=== PATIENT | female | born 2000 | race Caucasian/White ===

== ENCOUNTER 2020-01-14 07:26 | Day surgery (SDC) | payer BC ==
--- NOTE | 2020-01-08 15:43 | HP ---
AMENDED REPORT: DATE OF SURGERY: 01/14/2020 HISTORY OF PRESENT ILLNESS: The patient is a 19 year-old female who presented to the office with right upper quadrant pain. She states this pain is aggravated by eating greasy food. There is some nausea in the a.m. The pain is mostly postprandial. The pain does radiate to the back. The patient had abdominal ultrasound with impression showing cholelithiasis without acute cholecystitis. PAST MEDICAL HISTORY: Hypertension. Reflux. MEDICATIONS: Hydrochlorothiazide. Ambien. Omeprazole. Zofran. Oral control. ALLERGIES: DAYPRO. FAMILY HISTORY: Hypertension. SOCIAL HISTORY: Negative. REVIEW OF SYSTEMS: CONSTITUTIONAL: Denies fever or chills. CHEST: Denies shortness of breath or cough. CVS: Denies chest pain. ABDOMEN: Reports right upper quadrant pain radiating to the back. Positive nausea and diarrhea. Denies rectal bleeding. : Denies dysuria, hematuria. EXTREMITIES: Denies swelling. PHYSICAL EXAMINATION: GENERAL: No acute distress. HEENT: No jaundice. Oral mucosa moist. NECK: No JVD. CHEST: Nonlabored. No shortness of breath. ABDOMEN: Soft, nondistended, tender in the right upper quadrant to palpation. EXTREMITIES: No edema. INTEGUMENTARY: Warm, pink. No rash. NEUROLOGIC: Awake, alert, oriented. PSYCHIATRIC: Appropriate mood and affect. ASSESSMENT: Symptomatic cholelithiasis. PLAN: Laparoscopic cholecystectomy possible open with Dr. Scooby Mendoza. As dictated by Latisha Martinez NP. ADDENDUM 01/14/[address] Scooby Mendoza: C-scope before laparoscopic cholecystectomy for rectal bleeding.
[2020-01-14] MEDS ORDERED: Lactated Ringers 1,000 ML IV SCH (08:00)
[2020-01-14] MEDS ORDERED: Versed 2 MG/2 ML Injection ONE (08:24)
[2020-01-14] MEDS ORDERED: Versed 2 MG/2 ML Injection IV ONE (08:26)
[2020-01-14] MEDS ORDERED: DIPRIVAN 200 MG/20 ML IV ONE ×2 (09:18→09:25)
[2020-01-14] MEDS ORDERED: Ketamine HCl 50 MG/ML ONE (09:20)
[2020-01-14 10:40] VITALS: O2SAT 84
[2020-01-14 10:42] VITALS: BP 135/89; PULSE 66
--- NOTE | 2020-01-14 11:45 | OP ---
SURGERY DATE/TIME: 01/14/2020 0923 PREOPERATIVE DIAGNOSIS: Blood per rectum. POSTOPERATIVE DIAGNOSIS: Normal colonoscopy to cecum. PREP SCORE: Excellent. ANTICIPATED FOLLOW UP: Ten years. FINDINGS: Normal. PROCEDURE: Colonoscopy complete to cecum. SURGEON: Scooby Mendoza M.D. ANESTHESIA: MAC. COMPLICATIONS: None. CONDITION: Stable. INDICATION: The patient has had some rectal bleeding. She also has some gallbladder symptoms. We are considering doing a cholecystectomy. Her rectal bleeding is being evaluated today. DESCRIPTION OF PROCEDURE: She is taken to endoscopy. MAC sedation provided. Anal digital examination satisfactory. Scope introduced. There were no fissures and no major hemorrhoids today. The scope was advanced up to the cecum. Base of the cecum, ileocecal valve and appendiceal orifice normal. Ascending, hepatic, transverse, splenic, descending, sigmoid, rectum, anus was normal. Normal examination today. PLAN: Follow up in ten years.
== END 2020-01-14 10:30 | disposition home or self-care (01) ==
LOC: SDC 07:26
PROVIDERS: ATTEND Surgery
DX: K62.5 Hemorrhage of anus and rectum (principal); R10.11 Right upper quadrant pain; R11.0 Nausea; K80.20 Calculus of gallbladder without cholecystitis without obstruction; I10 Essential (primary) hypertension; Z79.899 Other long term (current) drug therapy
CPT/HCPCS: 84703; J2250; J2704

== ENCOUNTER 2020-01-28 05:49 | Day surgery (SDC) | payer BC ==
--- NOTE | 2020-01-21 14:58 | HP ---
DATE: 01/28/2020 HISTORY OF PRESENT ILLNESS: The patient is a 19 year-old female who reports pain in her right upper quadrant most of the time. She states that eating greasy food aggravates the pain. She has some nausea in the AM with this. She reports that the pain radiates to her back. This has been going on for some time. She has had a recent CT scan showing some gallstones in the gallbladder. No acute cholecystitis. PAST MEDICAL HISTORY: Hypertension, insomnia, reflux. CURRENT MEDICATIONS: Hydrochlorothiazide, Ambien, omeprazole, Zofran, and oral control. ALLERGIES: DAYPRO. PAST SURGERIES: Tonsillectomy. SOCIAL HISTORY: Negative. FAMILY HISTORY: Hypertension. REVIEW OF SYSTEMS: CONSTITUTIONAL: Denies fever or chills. CHEST: Denies shortness of breath or cough. CVS: Denies chest pain. ABDOMEN: Reports right upper quadrant pain, nausea, occasional vomiting. Denies rectal bleeding. GENITOURINARY: Denies dysuria or hematuria. EXTREMITIES: Denies swelling. PHYSICAL EXAMINATION: GENERAL: No acute distress. CHEST: Nonlabored, no shortness of breath. CVS: Regular rate and rhythm. ABDOMEN: Tender in the right upper quadrant. Nondistended, soft. EXTREMITIES: No edema. NEURO: Alert and oriented. PSYCH: Appropriate. IMPRESSION: 1. SYMPTOMATIC CHOLELITHIASIS. PLAN: Laparoscopic cholecystectomy. This report was dictated for Dr. Mendoza by Latisha Martinez NP.
[2020-01-28] MEDS ORDERED: Lactated Ringers 1,000 ML IV SCH (06:30)
[2020-01-28] MEDS ORDERED: Lactated Ringers 1,000 ML IV ONE ×3 (06:52→10:23)
[2020-01-28] MEDS ORDERED: MEFOXIN 2 GM PREMIX** 2 GM/50 ML ML IV ONE (06:52)
[2020-01-28] MEDS ORDERED: MEFOXIN 2 GM PREMIX** 2 GM/50 ML ML IV SCH (07:00)
[2020-01-28] MEDS ORDERED: Transderm Scop 1.5MG Patch TOP PRN (07:15)
[2020-01-28] MEDS ORDERED: Transderm Scop 1.5MG Patch TOP ONE (07:16)
[2020-01-28] MEDS ORDERED: Versed 2 MG/2 ML Injection IV ONE (07:42)
[2020-01-28] MEDS ORDERED: Zofran 4 MG/2 ML VIAL ONE (07:45)
[2020-01-28] MEDS ORDERED: Decadron 4 MG INJ ONE (07:45)
[2020-01-28] MEDS ORDERED: TORAdol 30 mg Injection ONE (07:45)
[2020-01-28] MEDS ORDERED: BRIDION 200MG/2ML IV ONE (07:45)
[2020-01-28] MEDS ORDERED: Zemuron 100 MG/10 ML ONE ×3 (07:45→09:19)
[2020-01-28] MEDS ORDERED: Quelicin Fliptop 200 MG/10 ML ONE (07:45)
[2020-01-28] MEDS ORDERED: SUBLIMAZE 100 MCG/2 ML ONE ×4 (07:45→09:57)
[2020-01-28] MEDS ORDERED: DIPRIVAN 200 MG/20 ML IV ONE (07:45)
[2020-01-28] MEDS ORDERED: Ketamine HCl 50 MG/ML ONE (07:47)
[2020-01-28] MEDS ORDERED: Sensorcaine 0.25% 10 ML ONE (08:01)
[2020-01-28] MEDS ORDERED: LOPRESSOR 5 MG/5 ML INJECTION IV ONE (08:45)
[2020-01-28] MEDS ORDERED: DILAUDID 2 MG INJECTION ONE (09:52)
[2020-01-28] MEDS ORDERED: Phenergan 25 MG INJ ONE (10:34)
[2020-01-28 12:37] VITALS: BP 129/70; PULSE 90; O2SAT 100
--- NOTE | 2020-01-28 12:45 | OP ---
SURGERY DATE/TIME: 01/28/2020 08 PREOPERATIVE DIAGNOSIS: Symptomatic cholelithiasis. POSTOPERATIVE DIAGNOSIS: Symptomatic cholelithiasis. PROCEDURE: Laparoscopic cholecystectomy. SURGEON: Dr. Mendoza. ANESTHESIA: General endotracheal tube. COMPLICATIONS: None. CONDITION: Stable. INDICATIONS: A patient with right upper quadrant pain, ultrasound positive. Seen and examined. Procedure discussed and wished to proceed. DESCRIPTION OF PROCEDURE AND FINDINGS: Taken to surgery. General anesthetic, routine prep and drape. Veress needle inserted. Opening pressure of 1, insufflating pressure 14. The anatomy was clear. Cystic duct defined. Cystic artery defined. The triangle of [place] was totally open. Both structures triply clipped and transected. Clips noted across and well approximated. Gallbladder rolled out of gallbladder fossa. The gallbladder delivered through the umbilical port. It was widened slightly. It was suctioned. It was pulled through. The stone actually hung up preperitoneal. It was necessary to go down with manual [place] and Gill retractors. Scored the fascia a little bit more this was sewn and then dropped back in the abdomen and placed in a bag and pulled out. The fascia deliberately closed with three sutures and figure-of-8 sutures. Those were all fine. Satisfactory approximation was present. The field was dry. Ports removed. CO2 was exsufflated on the way out. Skin closed with 4-0 Vicryl and Steri-Strips. The patient tolerated the procedure satisfactorily.
== END 2020-01-28 12:50 | disposition home or self-care (01) ==
LOC: SDC 05:49
PROVIDERS: ATTEND Surgery
DX: K80.20 Calculus of gallbladder without cholecystitis without obstruction (principal); I10 Essential (primary) hypertension; Z79.899 Other long term (current) drug therapy
CPT/HCPCS: 84703; 88304; J0330; J0694; J1100; J1170; J1885; J2250; J2405; J2550; J2704; J3010; A9270-GY

== ENCOUNTER 2020-02-12 19:38 | Emergency (ER) | payer BC ==
--- NOTE | 2020-02-12 21:21 | ERPHSYRPT ---
- History of Present Illness Time Seen by Provider: 02/12/20 21:16 Source: patient Exam Limitations: no limitations Patient Subjective Stated Complaint: pt c/o dizziness, headache all day, temp at home Triage Nursing Assessment: pt c/o dizziness since 1830, nausea but feels like its her nerves, headache all day and had a temp at home of 100.7 at 1840 but did not treat it. Pt is afebrile here, temp 98.7 at this time. Pt has hx of htn, b/p 158/99 upon arrival. Pt is stressed at this time. Pt is status post gallbladder removal on 01/28/20 and is currently taking atb (Keflex) for staph infection. Physician History: pt reports recent GB surgery but with some N no V but concerned may have infection as was being treated for umbilical infection with keflex this past week abd is nontender- had fever at home and slight mcneil and feeling dizzy amybe with vertigo TM s look normal no neuro findings - she declines CT head after discussion of risk and benefits. nom hx trauma or blood thinners neg COvid prior to surgery and no known contacts - no resp sx or ST ; no loss of smell or diarrhea. denies vag symptoms or discharge Severity: moderate Associated Symptoms: nausea Allergies/Adverse Reactions: oxaprozin [From Daypro] Allergy (Verified 02/12/20 20:52) Rash Home Medications: Hydrochlorothiazide 25 mg [hydroDIURIL 25 MG] 25 mg PO DAILY 01/06/20 [History] Levonorgestrel-Ethin Estradiol [[place]-28 Tablet] 1 each PO DAILY 01/06/20 [History] Potassium Chloride 10 Meq Tab* [Klor Con 10 MEQ] 20 meq PO DAILY 01/06/20 [History] Zolpidem Tartrate [Ambien] 6.5 mg PO HS 01/06/20 [History] Cephalexin Mh 500 mg [Keflex 500 mg] 500 mg PO TID 02/12/20 [History] Hx Tetanus, Diphtheria Vaccination/Date Given: Yes Hx Influenza Vaccination/Date Given: Yes Hx Pneumococcal Vaccination/Date Given: No Immunizations Up to Date: Yes Travel Risk - International Travel Have you traveled outside of the country in past 3 weeks: No - Coronavirus Screening Are you exhibiting any of the following symptoms?: No Symptoms: Fever (at home) Close contact with a COVID-19 positive Pt in past 14-21 Days: No - Review of Systems Constitutional: Fever, No Chills Eyes: No Symptoms Ears, Nose, & Throat: No Symptoms Respiratory: No Cough, No Dyspnea Cardiac: No Chest Pain, No Edema, No Syncope Abdominal/Gastrointestinal: Nausea, No Abdominal Pain, No Vomiting, No Diarrhea Genitourinary Symptoms: No Dysuria Musculoskeletal: No Back Pain, No Neck Pain Skin: No Rash Neurological: Dizziness, Headache, No Focal Weakness, No Sensory Changes Psychological: No Symptoms Endocrine: No Symptoms All Other Systems: Reviewed and Negative - Past Medical History Pertinent Past Medical History: Yes Neurological History: No Pertinent History ENT History: No Pertinent History Cardiac History: Hypertension Respiratory History: No Pertinent History Endocrine Medical History: No Pertinent History Musculoskeletal History: No Pertinent History GI Medical History: Gallbladder Disease History: No Pertinent History Psycho-Social History: Anxiety Female Reproductive Disorders: No Pertinent History - Past Surgical History Past Surgical History: Yes Neuro Surgical History: No Pertinent History Cardiac: No Pertinent History Respiratory: No Pertinent History Gastrointestinal: Cholecystectomy, Other Genitourinary: No Pertinent History Musculoskeletal: No Pertinent History Female Surgical History: No Pertinent History Other Surgical History: colonoscopy - Social History Smoking Status: Never smoker Exposure to second hand smoke: Yes Drug Use: none Patient Lives Alone: No - Female History Hx Last Menstrual Period: 01/28/20 Hx Now: (unknown) - Nursing Vital Signs Nursing Vital Signs: Initial Vital Signs Temperature 98.7 F 02/12/20 20:43 Pulse Rate 101 H 02/12/20 20:43 Respiratory Rate 16 02/12/20 20:43 Blood Pressure 158/99 02/12/20 20:43 O2 Sat by Pulse Oximetry 98 02/12/20 20:43 Pain Scale Pain Intensity 0 - Physical Exam General Appearance: no apparent distress, alert Eye Exam: PERRL/EOMI, eyes nml inspection Ears, Nose, Throat Exam: normal ENT inspection, TMs normal, pharynx normal, moist mucous membranes Neck Exam: normal inspection, non-tender, supple, full range of motion Respiratory Exam: normal breath sounds, lungs clear, No respiratory distress Cardiovascular Exam: regular rate/rhythm, normal heart sounds, normal peripheral pulses Gastrointestinal/Abdomen Exam: soft, normal bowel sounds, No tenderness, No distention, No mass, No guarding, No pulsatile mass, No rebound Pelvic Exam: deferred Rectal Exam: deferred Back Exam: normal inspection, normal range of motion, No CVA tenderness, No vertebral tenderness Extremity Exam: normal inspection, normal range of motion, pelvis stable Neurologic Exam: alert, oriented x 3, cooperative, normal mood/affect, nml cerebellar function, nml station & gait, sensation nml, No motor deficits Skin Exam: normal color, warm, dry, No rash Lymphatic Exam: No adenopathy SpO2: 98 Ordered Tests: Active Orders 24 hr Category Date Time Status IV Insertion STAT Care 02/12/20 21:23 Active CHEST 2 VIEWS (PA AND LAT) Stat Exams 02/12/20 21:24 Taken CBC W DIFF Stat Lab 02/12/20 21:40 Completed CMP Stat Lab 02/12/20 21:40 Completed HCG QUALITATIVE,SERUM Stat Lab 02/12/20 21:40 Completed LIPASE Stat Lab 02/12/20 21:40 Completed Lactic Acid Stat Lab 02/12/20 21:23 Completed T4 (Thyroxine) Stat Lab 02/12/20 21:40 Completed UA W/RFX UR CULTURE Stat Lab 02/12/20 21:30 Completed Medication Summary Discontinued Medications Generic Name Dose Route Start Last Admin Trade Name Freq PRN Reason Stop Dose Admin Sodium Chloride 1,000 mls @ 999 mls/hr 02/12/20 21:23 02/12/20 21:41 Sodium Chloride 0.9% 1000 Ml IV 02/12/20 22:23 999 mls/hr .Q1H1M STA Administration Ceftriaxone Sodium/Dextrose 1 g in 50 mls @ 100 mls/hr 02/12/20 21:26 02/12/20 22:18 Rocephin 1 Gm-D5w 50 Ml Bag IV 02/12/20 21:55 Infused STAT STA Infusion Sodium Chloride Confirm 02/12/20 21:38 Sodium Chloride 0.9% 1000 Ml Administered 02/12/20 21:39 Dose 1,000 mls @ ud .ROUTE .STK-MED ONE Ceftriaxone Sodium/Dextrose Confirm 02/12/20 21:38 Rocephin 1 Gm-D5w 50 Ml Bag Administered 02/12/20 21:39 Dose 1 g in 50 mls @ ud IV .STK-MED ONE Meclizine HCl 25 mg 02/12/20 21:23 02/12/20 21:41 Antivert 25 Mg PO 02/12/20 21:24 25 mg STAT ONE Administration Meclizine HCl Confirm 02/12/20 21:38 Antivert 25 Mg Administered 02/12/20 21:39 Dose 25 mg .ROUTE .STK-MED ONE Ondansetron HCl 4 mg 02/12/20 21:23 02/12/20 21:41 Zofran 4 Mg/2 Ml Vial IV 02/12/20 21:24 4 mg STAT ONE Administration Ondansetron HCl Confirm 02/12/20 21:38 Zofran 4 Mg/2 Ml Vial Administered 02/12/20 21:39 Dose 4 mg .ROUTE .STK-MED ONE Lab/Rad Data: Laboratory Result Diagrams 02/12/20 21:40 02/12/20 21:40 Laboratory Results 02/12/20 02/12/20 02/12/20 Range/Units 21:40 21:40 21:40 WBC 10.3 (4.0-10.5) K/mm3 RBC 4.62 (4.1-5.4) M/mm3 Hgb 13.2 (12.0-16.0) gm/dl Hct 40.1 (35-47) % MCV 86.8 (78-100) fl MCH 28.6 (26-32) pg MCHC 32.9 (32-36) g/dl RDW 12.8 (11.5-14.0) % Plt Count 220 (150-450) K/mm3 MPV 10.6 (7.5-11.0) fl Gran % 61.8 (36.0-66.0) % Eos # (Auto) 0.53 H (0-0.5) Absolute Lymphs (auto) 2.43 (1.0-4.6) Absolute Monos (auto) 0.95 (0.0-1.3) Lymphocytes % 23.6 L (24.0-44.0) % Monocytes % 9.2 (0.0-12.0) % Eosinophils % 5.1 H (0.00-5.0) % Basophils % 0.3 (0.0-0.4) % Absolute Granulocytes 6.36 (1.4-6.9) Basophils # 0.03 (0-0.4) Sodium 141 (137-145) mmol/L Potassium 3.3 L (3.5-5.1) mmol/L Chloride 104 (98-107) mmol/L Carbon Dioxide 27 (22-30) mmol/L Anion Gap 12.9 (5-15) MEQ/L BUN 8 (7-17) mg/dL Creatinine 0.75 (0.52-1.04) mg/dL Estimated GFR > 60.0 ML/MIN Glucose 108 H (74-106) mg/dL Lactic Acid (0.4-2.0) Calcium 9.2 (8.4-10.2) mg/dL Total Bilirubin 0.30 (0.2-1.3) mg/dL AST 29 (14-36) U/L ALT 40 H (0-35) U/L Alkaline Phosphatase 64 (38-126) U/L Serum Total Protein 7.8 (6.3-8.2) g/dL Albumin 4.4 (3.5-5.0) g/dL Lipase 236 (23-300) U/L Thyroxine (T4) 11.5 H (5.53-10.96) ug/dL Serum , Qual NEGATIVE (Negative) Urine Color (YELLOW) Urine Appearance (CLEAR) Urine pH (5-6) Ur Specific [place] (1.005-1.025) Urine Protein (Negative) Urine Ketones (NEGATIVE) Urine Blood (0-5) Octavio/ul Urine Nitrite (NEGATIVE) Urine Bilirubin (NEGATIVE) Urine Urobilinogen (0-1) mg/dL Ur Leukocyte Esterase (NEGATIVE) Urine WBC (Auto) (0-5) /HPF Urine RBC (Auto) (0-2) /HPF U Epithel Cells (Auto) (FEW) /HPF Urine Bacteria (Auto) (NEGATIVE) /HPF Urine Mucus (Auto) (NEGATIVE) /HPF Urine Culture Reflexed (NO) Urine Glucose (NEGATIVE) mg/dL 02/12/20 02/12/20 Range/Units 21:30 21:23 WBC (4.0-10.5) K/mm3 RBC (4.1-5.4) M/mm3 Hgb (12.0-16.0) gm/dl Hct (35-47) % MCV (78-100) fl MCH (26-32) pg MCHC (32-36) g/dl RDW (11.5-14.0) % Plt Count (150-450) K/mm3 MPV (7.5-11.0) fl Gran % (36.0-66.0) % Eos # (Auto) (0-0.5) Absolute Lymphs (auto) (1.0-4.6) Absolute Monos (auto) (0.0-1.3) Lymphocytes % (24.0-44.0) % Monocytes % (0.0-12.0) % Eosinophils % (0.00-5.0) % Basophils % (0.0-0.4) % Absolute Granulocytes (1.4-6.9) Basophils # (0-0.4) Sodium (137-145) mmol/L Potassium (3.5-5.1) mmol/L Chloride (98-107) mmol/L Carbon Dioxide (22-30) mmol/L Anion Gap (5-15) MEQ/L BUN (7-17) mg/dL Creatinine (0.52-1.04) mg/dL Estimated GFR ML/MIN Glucose (74-106) mg/dL Lactic Acid 1.1 (0.4-2.0) Calcium (8.4-10.2) mg/dL Total Bilirubin (0.2-1.3) mg/dL AST (14-36) U/L ALT (0-35) U/L Alkaline Phosphatase (38-126) U/L Serum Total Protein (6.3-8.2) g/dL Albumin (3.5-5.0) g/dL Lipase (23-300) U/L Thyroxine (T4) (5.53-10.96) ug/dL Serum , Qual (Negative) Urine Color YELLOW (YELLOW) Urine Appearance SLIGHTLY CLOUDY (CLEAR) Urine pH 7.0 (5-6) Ur Specific [place] 1.025 (1.005-1.025) Urine Protein NEGATIVE (Negative) Urine Ketones NEGATIVE (NEGATIVE) Urine Blood NEGATIVE (0-5) Octavio/ul Urine Nitrite NEGATIVE (NEGATIVE) Urine Bilirubin NEGATIVE (NEGATIVE) Urine Urobilinogen 2 (0-1) mg/dL Ur Leukocyte Esterase SMALL (NEGATIVE) Urine WBC (Auto) 0-2 (0-5) /HPF Urine RBC (Auto) 3-5 (0-2) /HPF U Epithel Cells (Auto) RARE (FEW) /HPF Urine Bacteria (Auto) NONE (NEGATIVE) /HPF Urine Mucus (Auto) SLIGHT (NEGATIVE) /HPF Urine Culture Reflexed NO (NO) Urine Glucose NEGATIVE (NEGATIVE) mg/dL - Progress Progress: improved, re-examined Progress Note: 02/13/20 00:00 pts symptoms have now resolved and she has had no documented fever here and no source found - we discussed covid possibility but she prefers f/u with PCP to decide if further testing and does not wish furhter w/u in ER tonight or obs - and understands a condition may be developing undetected ; SHe is eating OK and no abd pain and wounds look fine. Counseled pt/family regarding: diagnosis, need for follow-up, rad results - Departure Departure Disposition: Home Clinical Impression: Hypertension, reported fever, dizziness - resolved , Hypokalemia, Hyperthyroidism Condition: Good Critical Care Time: No Referrals: PATRICIA HULL DAIRY HUSBANDMAN [Primary Care Provider] - Instructions: Hypokalemia (DC), Hyperthyroidism (Overactive Thyroid) (DC) Additional Instructions: followup with your DrAbel for low potassium and Thyroid elevation and further work up of your symptoms - return meantime if not improving or further symptoms of concern
[2020-02-12] MEDS ORDERED: Sodium Chloride 0.9% 1000 ML 1,000 ML IV STA (21:23)
[2020-02-12] MEDS ORDERED: Zofran 4 MG/2 ML VIAL IV ONE (21:23)
[2020-02-12] MEDS ORDERED: ANTIVERT 25 MG PO ONE (21:23)
[2020-02-12] MEDS ORDERED: ROCEPHIN 1 Gm-D5w 50 ml Bag** 1 G/50 ML IVPB IV STA (21:26)
[2020-02-12] MEDS ORDERED: ANTIVERT 25 MG ONE (21:38)
[2020-02-12] MEDS ORDERED: Zofran 4 MG/2 ML VIAL ONE (21:38)
[2020-02-12] MEDS ORDERED: ROCEPHIN 1 Gm-D5w 50 ml Bag** 1 G/50 ML IVPB IV ONE (21:38)
[2020-02-12] MEDS ORDERED: Sodium Chloride 0.9% 1000 ML 1,000 ML ONE (21:38)
[2020-02-12 21:41] LABS: Absolute Neutrophil Ct (ANC) 6.36 (1.4-6.9); BASOPHIL % 0.3 % (0.0-0.4); Basophil (Absolute #) 0.03 (0-0.4); Eosinophil % 5.1 % (0.00-5.0); Eosinophil (Absolute #) 0.53 (0-0.5); Hematocrit 40.1 % (35-47); Hemoglobin 13.2 gm/dl (12.0-16.0); Lymphocyte (Absolute #) 2.43 (1.0-4.6); Lymphocytes % 23.6 % (24.0-44.0); Mean Cell Volume 86.8 fl (78-100); Mean Corpuscular Hemoglobin 28.6 pg (26-32); Mean Corpuscular Hgb Concent. 32.9 g/dl (32-36); Mean Platelet Volume 10.6 fl (7.5-11.0); Monocyte (Absolute #) 0.95 (0.0-1.3); Monocytes % 9.2 % (0.0-12.0); Neutrophil % 61.8 % (36.0-66.0); Platelet Count 220 K/mm3 (150-450); Red Blood Count 4.62 M/mm3 (4.1-5.4); Red Cell Distribution Width 12.8 % (11.5-14.0); White Blood Count 10.3 K/mm3 (4.0-10.5)
[2020-02-12 21:44] LABS: Appearance SLIGHTLY CLOUDY (CLEAR); Bilirubin NEGATIVE (NEGATIVE); Blood NEGATIVE Ery/ul (0-5); Epithelial Cells RARE /HPF (FEW); Glucose NEGATIVE (NEGATIVE); Ketones NEGATIVE (NEGATIVE); Leukocyte Esterase SMALL (NEGATIVE); Mucus SLIGHT /HPF (NEGATIVE); Nitrite NEGATIVE (NEGATIVE); Protein,Urine Dip NEGATIVE (Negative); Specific Gravity 1.025 (1.005-1.025); Urobilinogen 2 mg/dL (0-1); WBC 0-2 /HPF (0-5)
[2020-02-12 22:11] LABS: ALBUMIN 4.4 g/dL (3.5-5.0); ALKALINE PHOSPHATASE 64 U/L (38-126); ANION GAP 12.9 MEQ/L (5-15); BLOOD UREA NITROGEN 8 mg/dL (7-17); CHLORIDE 104 mmol/L (98-107); Calcium 9.2 mg/dL (8.4-10.2); Carbon Dioxide 27 mmol/L (22-30); Creatinine 1 0.75 mg/dL (0.52-1.04); Glucose 108 mg/dL (74-106); LIPASE 236 U/L (23-300); Potassium 3.3 mmol/L (3.5-5.1); SGOT/AST 29 U/L (14-36); SGPT/ALT 40 U/L (0-35); SODIUM 141 mmol/L (137-145); T4 (Thyroxine) 11.5 ug/dL (5.53-10.96); Total Protein 7.8 g/dL (6.3-8.2)
[2020-02-12] MEDS ORDERED: K-LYTE 25 MEQ PO ONE (23:50)
[2020-02-13] MEDS ORDERED: K-LYTE 25 MEQ ONE (00:14)
[2020-02-13 00:32] VITALS: BP 145/91; PULSE 86; O2SAT 100
--- NOTE | 2020-02-13 07:59 | XRAY ---
Indication: Fever, dizziness, and headache. Comparison: None PA/lateral chest demonstrates normal heart and lungs. Bony thorax intact with minimal double curvature scoliosis.
== END 2020-02-13 00:34 | disposition home or self-care (01) ==
LOC: ED 19:38
DX: I10 Essential (primary) hypertension (principal); R50.9 Fever, unspecified; R42 Dizziness and giddiness; E87.6 Hypokalemia; E05.90 Thyrotoxicosis, unspecified without thyrotoxic crisis or storm
CPT/HCPCS: 36000; 36415; 71046; 80053; 81001; 81025; 83605; 83690; 84436; 85025; 96360; 96365; 96374; 99284; J0696; J2405; A9270-GY

== ENCOUNTER 2020-12-31 13:43 | Emergency (ER) | payer BC ==
[2020-12-31] MEDS ORDERED: Sodium Chloride 0.9% 1000 ML 1,000 ML IV STA (13:54)
[2020-12-31] MEDS ORDERED: Sodium Chloride 0.9% 1000 ML 1,000 ML ONE (14:01)
[2020-12-31 14:21] LABS: Appearance CLEAR (CLEAR); Bilirubin NEGATIVE (NEGATIVE); Blood SMALL Ery/ul (0-5); Glucose NEGATIVE (NEGATIVE); Ketones NEGATIVE (NEGATIVE); Leukocyte Esterase NEGATIVE (NEGATIVE); Nitrite NEGATIVE (NEGATIVE); Protein,Urine Dip NEGATIVE (Negative); Specific Gravity 1.005 (1.005-1.025); Urobilinogen NEGATIVE mg/dL (0-1)
[2020-12-31 14:27] LABS: INR 1.15 (0.8-3.0)
[2020-12-31 14:30] LABS: ALBUMIN 4.9 g/dL (3.5-5.0); ALKALINE PHOSPHATASE 79 U/L (38-126); ANION GAP 15.3 MEQ/L (5-15); BLOOD UREA NITROGEN 5 mg/dL (7-17); CHLORIDE 104 mmol/L (98-107); Calcium 9.7 mg/dL (8.4-10.2); Carbon Dioxide 24 mmol/L (22-30); Creatinine 1 0.66 mg/dL (0.52-1.04); EST GLOMERULAR FILTRATION RATE > 60.0 ML/MIN; Glucose 87 mg/dL (74-106); Potassium 3.8 mmol/L (3.5-5.1); SGOT/AST 23 U/L (14-36); SGPT/ALT 20 U/L (0-35); SODIUM 140 mmol/L (137-145); Total Protein 8.2 g/dL (6.3-8.2)
[2020-12-31 14:37] LABS: Absolute Neutrophil Ct (ANC) 8.19 (1.4-6.9); BASOPHIL % 0.2 % (0.0-0.4); Basophil (Absolute #) 0.02 (0-0.4); Eosinophil % 0.8 % (0.00-5.0); Eosinophil (Absolute #) 0.08 (0-0.5); Hematocrit 44.7 % (35-47); Hemoglobin 14.1 gm/dl (12.0-16.0); Lymphocyte (Absolute #) 1.11 (1.0-4.6); Lymphocytes % 11.3 % (24.0-44.0); Mean Corpuscular Hemoglobin 27.4 pg (26-32); Mean Corpuscular Hgb Concent. 31.5 g/dl (32-36); Mean Platelet Volume 10.8 fl (7.5-11.0); Monocyte (Absolute #) 0.38 (0.0-1.3); Monocytes % 3.9 % (0.0-12.0); Neutrophil % 83.8 % (36.0-66.0); Platelet Count 256 K/mm3 (150-450); Red Blood Count 5.14 M/mm3 (4.1-5.4); Red Cell Distribution Width 13.2 % (11.5-14.0); White Blood Count 9.8 K/mm3 (4.0-10.5)
[2020-12-31] MEDS ORDERED: Ativan 2 MG/1 ML VIAL IV ONE (15:14)
[2020-12-31] MEDS ORDERED: Ativan 2 MG/1 ML VIAL ONE (15:19)
[2020-12-31 17:12] VITALS: PULSE 80
[2020-12-31 17:25] VITALS: O2SAT 100
--- NOTE | 2020-12-31 17:25 | ERPHSYRPT ---
- History of Present Illness Time Seen by Provider: 12/31/20 14:00 Source: patient Exam Limitations: no limitations Patient Subjective Stated Complaint: Dizziness Triage Nursing Assessment: Patient ambulated back to ED and transferred self to bed. Patient A+O X3. Patient's skin pink, warm and dry. Patient states she took a new med for the first time today and 30 min after started getting dizzy. Patient took Lexapro 10mg at 0830 and around 0930 became dizzy and not feeling right. Patient complains of nausea, but denies vomiting. Patient denies pain or discomfort. Physician History: A 20-year-old female who presents with a complaint of dizziness lightheadedness nausea vomiting and not feeling well since she took her first dose of Lexapro at 830 this morning. She is given these medicines for depression and anxiety complained of dizziness Timing/Duration: today Severity: moderate Modifying Factors: Improves With: medication Associated Symptoms: nausea, vomiting, weakness Allergies/Adverse Reactions: oxaprozin [From Daypro] Allergy (Verified 12/31/20 13:54) Rash Home Medications: Hydrochlorothiazide 25 mg [hydroDIURIL 25 MG] 25 mg PO DAILY 01/06/20 [History] Levonorgestrel-Ethin Estradiol [Larissia-28 Tablet] 1 each PO DAILY 01/06/20 [History] Potassium Chloride 10 Meq Tab* [Klor Con 10 MEQ] 10 meq PO DAILY 01/06/20 [History] Zolpidem Tartrate [Ambien] 6.5 mg PO HS 01/06/20 [History] Hx Tetanus, Diphtheria Vaccination/Date Given: Yes Hx Influenza Vaccination/Date Given: Yes Hx Pneumococcal Vaccination/Date Given: No Immunizations Up to Date: Yes Travel Risk - International Travel Have you traveled outside of the country in past 3 weeks: No - Coronavirus Screening Are you exhibiting any of the following symptoms?: No Symptoms: Shortness of Breath - Vaccine Status Have you recieved a Covid-19 vaccination: No - Review of Systems Constitutional: Weakness, No Fever, No Chills Eyes: No Symptoms Ears, Nose, & Throat: No Symptoms Respiratory: No Cough, No Dyspnea Cardiac: No Chest Pain, No Edema, No Syncope Abdominal/Gastrointestinal: Nausea, Vomiting, No Abdominal Pain, No Diarrhea Genitourinary Symptoms: No Dysuria Musculoskeletal: No Back Pain, No Neck Pain Skin: No Rash Neurological: Dizziness, No Focal Weakness, No Sensory Changes Psychological: No Symptoms, Anxiety, Depression Endocrine: No Symptoms All Other Systems: Reviewed and Negative - Past Medical History Pertinent Past Medical History: Yes Neurological History: No Pertinent History ENT History: No Pertinent History Cardiac History: Hypertension Respiratory History: No Pertinent History Endocrine Medical History: No Pertinent History Musculoskeletal History: No Pertinent History GI Medical History: Gallbladder Disease History: No Pertinent History Psycho-Social History: Anxiety Female Reproductive Disorders: No Pertinent History - Past Surgical History Past Surgical History: Yes Neuro Surgical History: No Pertinent History Cardiac: No Pertinent History Respiratory: No Pertinent History Gastrointestinal: Cholecystectomy, Other Genitourinary: No Pertinent History Musculoskeletal: No Pertinent History Female Surgical History: No Pertinent History Other Surgical History: colonoscopy - Social History Smoking Status: Never smoker Exposure to second hand smoke: No Drug Use: none Patient Lives Alone: No - Female History Hx Last Menstrual Period: currently Hx Now: No - Nursing Vital Signs Nursing Vital Signs: Initial Vital Signs Pulse Rate 97 H 12/31/20 13:56 Respiratory Rate 18 12/31/20 13:56 Blood Pressure 154/110 12/31/20 13:56 O2 Sat by Pulse Oximetry 98 12/31/20 13:56 Pain Scale Pain Intensity 0 - Physical Exam General Appearance: mild distress, alert Eye Exam: PERRL/EOMI, eyes nml inspection Ears, Nose, Throat Exam: normal ENT inspection, TMs normal, pharynx normal, moist mucous membranes Neck Exam: normal inspection, non-tender, supple, full range of motion Respiratory Exam: normal breath sounds, lungs clear, No respiratory distress Cardiovascular Exam: regular rate/rhythm, normal heart sounds, normal peripheral pulses Gastrointestinal/Abdomen Exam: soft, normal bowel sounds, No tenderness, No mass Back Exam: normal inspection, normal range of motion, No CVA tenderness, No vertebral tenderness Extremity Exam: normal inspection, normal range of motion, pelvis stable Neurologic Exam: alert, oriented x 3, cooperative, normal mood/affect, nml cerebellar function, nml station & gait, sensation nml, No motor deficits Skin Exam: normal color, warm, dry, No rash Lymphatic Exam: No adenopathy SpO2: 100 - Radiology Exams Chest X-ray Interpretation: Interpreted by me, Negative - CT Exams Chest CT Interpretation: Tele-radiologist Report, Other (No pulmonary emboli) Ordered Tests: Active Orders 24 hr Category Date Time Status EKG-ER Only STAT Care 12/31/20 13:54 Active IV Insertion STAT Care 12/31/20 13:54 Active CHEST 1 VIEW (PORTABLE) Stat Exams 12/31/20 13:55 Taken CHEST WITH CONTRAST [CT] Stat Exams 12/31/20 14:48 Taken CBC W DIFF Stat Lab 12/31/20 14:00 Completed CMP Stat Lab 12/31/20 14:00 Completed D-DIMER QUANTITATIVE Stat Lab 12/31/20 14:00 Completed PROTIME WITH INR Stat Lab 12/31/20 14:00 Completed UA W/RFX UR CULTURE Stat Lab 12/31/20 14:02 Completed Medication Summary Discontinued Medications Generic Name Dose Route Start Last Admin Trade Name Gabriela PRN Reason Stop Dose Admin Sodium Chloride 1,000 mls @ 999 mls/hr 12/31/20 13:54 12/31/20 15:08 Sodium Chloride 0.9% 1000 Ml IV 12/31/20 14:54 Infused .Q1H1M STA Infusion Sodium Chloride Confirm 12/31/20 14:01 Sodium Chloride 0.9% 1000 Ml Administered 12/31/20 14:02 Dose 1,000 mls @ ud .ROUTE .STK-MED ONE Lorazepam 1 mg 12/31/20 15:14 12/31/20 15:20 Ativan 2 Mg/1 Ml Vial IV 12/31/20 15:15 1 mg STAT ONE Administration Lorazepam Confirm 12/31/20 15:19 Ativan 2 Mg/1 Ml Vial Administered 12/31/20 15:20 Dose 2 mg .ROUTE .STK-MED ONE Lab/Rad Data: Laboratory Result Diagrams 12/31/20 14:00 12/31/20 14:00 Laboratory Results 12/31/20 12/31/20 12/31/20 Range/Units 14:02 14:00 14:00 WBC (4.0-10.5) K/mm3 RBC (4.1-5.4) M/mm3 Hgb (12.0-16.0) gm/dl Hct (35-47) % MCV (78-100) fl MCH (26-32) pg MCHC (32-36) g/dl RDW (11.5-14.0) % Plt Count (150-450) K/mm3 MPV (7.5-11.0) fl Gran % (36.0-66.0) % Eos # (Auto) (0-0.5) Absolute Lymphs (auto) (1.0-4.6) Absolute Monos (auto) (0.0-1.3) Lymphocytes % (24.0-44.0) % Monocytes % (0.0-12.0) % Eosinophils % (0.00-5.0) % Basophils % (0.0-0.4) % Absolute Granulocytes (1.4-6.9) Basophils # (0-0.4) PT 13.0 H (9.95-12.35) SECONDS INR 1.15 (0.8-3.0) D-Dimer 591 H* (215-500) ng/mL Sodium 140 (137-145) mmol/L Potassium 3.8 (3.5-5.1) mmol/L Chloride 104 (98-107) mmol/L Carbon Dioxide 24 (22-30) mmol/L Anion Gap 15.3 H (5-15) MEQ/L BUN 5 L (7-17) mg/dL Creatinine 0.66 (0.52-1.04) mg/dL Estimated GFR > 60.0 ML/MIN Glucose 87 (74-106) mg/dL Calcium 9.7 (8.4-10.2) mg/dL Total Bilirubin 0.50 (0.2-1.3) mg/dL AST 23 (14-36) U/L ALT 20 (0-35) U/L Alkaline Phosphatase 79 (38-126) U/L Serum Total Protein 8.2 (6.3-8.2) g/dL Albumin 4.9 (3.5-5.0) g/dL Urine Color STRAW (YELLOW) Urine Appearance CLEAR (CLEAR) Urine pH 5.0 (5-6) Ur Specific [place] 1.005 (1.005-1.025) Urine Protein NEGATIVE (Negative) Urine Ketones NEGATIVE (NEGATIVE) Urine Blood SMALL (0-5) Octavio/ul Urine Nitrite NEGATIVE (NEGATIVE) Urine Bilirubin NEGATIVE (NEGATIVE) Urine Urobilinogen NEGATIVE (0-1) mg/dL Ur Leukocyte Esterase NEGATIVE (NEGATIVE) Urine WBC (Auto) NONE (0-5) /HPF Urine RBC (Auto) NONE (0-2) /HPF U Epithel Cells (Auto) NONE (FEW) /HPF Urine Bacteria (Auto) NONE (NEGATIVE) /HPF Urine Culture Reflexed NO (NO) Urine Glucose NEGATIVE (NEGATIVE) mg/dL 12/31/20 Range/Units 14:00 WBC 9.8 (4.0-10.5) K/mm3 RBC 5.14 (4.1-5.4) M/mm3 Hgb 14.1 (12.0-16.0) gm/dl Hct 44.7 (35-47) % MCV 87.0 (78-100) fl MCH 27.4 (26-32) pg MCHC 31.5 L (32-36) g/dl RDW 13.2 (11.5-14.0) % Plt Count 256 (150-450) K/mm3 MPV 10.8 (7.5-11.0) fl Gran % 83.8 H (36.0-66.0) % Eos # (Auto) 0.08 (0-0.5) Absolute Lymphs (auto) 1.11 (1.0-4.6) Absolute Monos (auto) 0.38 (0.0-1.3) Lymphocytes % 11.3 L (24.0-44.0) % Monocytes % 3.9 (0.0-12.0) % Eosinophils % 0.8 (0.00-5.0) % Basophils % 0.2 (0.0-0.4) % Absolute Granulocytes 8.19 H (1.4-6.9) Basophils # 0.02 (0-0.4) PT (9.95-12.35) SECONDS INR (0.8-3.0) D-Dimer (215-500) ng/mL Sodium (137-145) mmol/L Potassium (3.5-5.1) mmol/L Chloride (98-107) mmol/L Carbon Dioxide (22-30) mmol/L Anion Gap (5-15) MEQ/L BUN (7-17) mg/dL Creatinine (0.52-1.04) mg/dL Estimated GFR ML/MIN Glucose (74-106) mg/dL Calcium (8.4-10.2) mg/dL Total Bilirubin (0.2-1.3) mg/dL AST (14-36) U/L ALT (0-35) U/L Alkaline Phosphatase (38-126) U/L Serum Total Protein (6.3-8.2) g/dL Albumin (3.5-5.0) g/dL Urine Color (YELLOW) Urine Appearance (CLEAR) Urine pH (5-6) Ur Specific [place] (1.005-1.025) Urine Protein (Negative) Urine Ketones (NEGATIVE) Urine Blood (0-5) Octavio/ul Urine Nitrite (NEGATIVE) Urine Bilirubin (NEGATIVE) Urine Urobilinogen (0-1) mg/dL Ur Leukocyte Esterase (NEGATIVE) Urine WBC (Auto) (0-5) /HPF Urine RBC (Auto) (0-2) /HPF U Epithel Cells (Auto) (FEW) /HPF Urine Bacteria (Auto) (NEGATIVE) /HPF Urine Culture Reflexed (NO) Urine Glucose (NEGATIVE) mg/dL - Progress Progress: improved - Departure Departure Disposition: Home Clinical Impression: Medication reaction Condition: Fair Critical Care Time: No Referrals: PATRICIA HULL NP [Primary Care Provider] - Instructions: Adverse Drug Reactions, Adult (DC) Prescriptions: Lorazepam 1 mg [Ativan 1 MG] 1 mg PO Q8H PRN PRN #8 tablet PRN Reason: Anxiety
[2020-12-31 17:46] VITALS: BP 117/88
--- NOTE | 2020-12-31 22:15 | XRAY ---
Indication: Elevated d-dimer. Multiple contiguous images obtained through the chest using 80 cc Isovue 370 contrast and PE protocol. Comparison: None There is good opacification of the pulmonary arteries to include the lobar and segmental branches. No pulmonary embolus. Heart is not enlarged. Aorta is normal in course and caliber. Tiny left perihilar calcified nodes. No pathologic mediastinal/hilar lymphadenopathy. Lungs inflated and clear. Bony thorax intact. Limited upper abdomen demonstrate cholecystectomy clips. Impression: Negative pulmonary embolus. No acute cardiopulmonary abnormalities. 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 Comment: Preliminary interpretation was made by [facility]. No critical discrepancy.
--- NOTE | 2020-12-31 22:15 | XRAY ---
Indication: Abnormal diagnostic test. Elevated d-dimer. Comparison: February 12, 2020. Portable chest again demonstrates normal heart and lungs. Bony thorax intact. No new/acute findings.
== END 2020-12-31 17:46 | disposition home or self-care (01) ==
LOC: ED 13:43
DX: R42 Dizziness and giddiness (principal); T50.905A Adverse effect of unspecified drugs, medicaments and biological substances, initial encounter
CPT/HCPCS: 36000; 36415; 71045; 71260; 80053; 81001; 85025; 85379; 85610; 93005; 96360; 96374; 99284; J2060

== ENCOUNTER 2021-01-02 08:03 | Emergency (ER) | payer BC ==
[2021-01-02] MEDS ORDERED: Sodium Chloride 0.9% 1000 ML 1,000 ML IV STA (08:16)
[2021-01-02] MEDS ORDERED: MORPHINE SULFATE 2 MG INJ IV ONE (08:16)
[2021-01-02] MEDS ORDERED: Zofran 4 MG/2 ML VIAL IV ONE (08:16)
[2021-01-02] MEDS ORDERED: MORPHINE SULFATE 2 MG INJ ONE (08:22)
[2021-01-02] MEDS ORDERED: Zofran 4 MG/2 ML VIAL ONE (08:22)
[2021-01-02] MEDS ORDERED: Sodium Chloride 0.9% 1000 ML 1,000 ML ONE (08:23)
--- NOTE | 2021-01-02 08:25 | ERPHSYRPT ---
- History of Present Illness Time Seen by Provider: 01/02/21 08:15 Historian: patient Exam Limitations: no limitations Patient Subjective Stated Complaint: pt here for pain to center of abd since sat, she was here on sat for reaction to lexapro, and given ativan, she also co loose stools Triage Nursing Assessment: pt alert, resp easy, skin w/d/p. abd soft, face mask in place, Physician History: Patient is a 20-year-old female presents to our ED for evaluation of abdominal pain. Pain started 2 days ago on Saturday. Patient what is our ED on Saturday for evaluation of possible allergic reaction to a medication. Patient had a CT a chest to rule out PE. Patient states her abdominal pain has been present since. Patient admits to diarrhea. Patient states her stools are loose and yellow appearing. Abdominal pain is generalized. Abdominal pain is undifferentiated at this time. No associated fever. No vomiting, + nausea. No rash. Pain described as an ache that is localized. No radiation. No specific worsening improving factors. Patient has a history of high blood pressure. Blood pressure today is within normal limits. Patient is otherwise healthy. She voices no other complaints concerns at this time. Timing/Duration: day(s) Activities at Onset: none Quality: aching Abdominal Pain Onset Location: generalized abdomen Pain Radiation: no radiation Severity of Pain-Max: moderate Severity of Pain-Current: mild Modifying Factors: Improves With: nothing Associated Symptoms: diarrhea, nausea, No fever/chills, No shortness of breath, No vomiting Previous symptoms: no prior history Allergies/Adverse Reactions: oxaprozin [From Daypro] Allergy (Verified 12/31/20 13:54) Rash escitalopram [From Lexapro] Adverse Reaction (Verified 01/02/21 08:16) Home Medications: Hydrochlorothiazide 25 mg [hydroDIURIL 25 MG] 25 mg PO DAILY 01/06/20 [History] Levonorgestrel-Ethin Estradiol [Larissia-28 Tablet] 1 each PO DAILY 01/06/20 [History] Potassium Chloride 10 Meq Tab* [Klor Con 10 MEQ] 10 meq PO DAILY 01/06/20 [History] Zolpidem Tartrate [Ambien] 6.5 mg PO HS 01/06/20 [History] Hx Tetanus, Diphtheria Vaccination/Date Given: Yes Hx Influenza Vaccination/Date Given: Yes Hx Pneumococcal Vaccination/Date Given: No Immunizations Up to Date: Yes Travel Risk - International Travel Have you traveled outside of the country in past 3 weeks: No - Coronavirus Screening Close contact with a COVID-19 positive Pt in past 14-21 Days: No - Vaccine Status Have you recieved a Covid-19 vaccination: No - Review of Systems Constitutional: No Symptoms, No Fever, No Chills Eyes: No Symptoms Ears, Nose, & Throat: No Symptoms Respiratory: No Symptoms, No Cough, No Dyspnea Cardiac: No Symptoms, No Chest Pain, No Edema, No Syncope Abdominal/Gastrointestinal: No Symptoms, No Abdominal Pain, No Nausea, No Vomiting, No Diarrhea Genitourinary Symptoms: No Symptoms, No Dysuria Musculoskeletal: No Symptoms, No Back Pain, No Neck Pain Skin: No Symptoms, No Rash Neurological: No Symptoms, No Dizziness, No Focal Weakness, No Sensory Changes Psychological: No Symptoms Endocrine: No Symptoms Hematologic/Lymphatic: No Symptoms Immunological/Allergic: No Symptoms All Other Systems: Reviewed and Negative - Past Medical History Pertinent Past Medical History: Yes Neurological History: No Pertinent History ENT History: No Pertinent History Cardiac History: Hypertension Respiratory History: No Pertinent History Endocrine Medical History: No Pertinent History Musculoskeletal History: No Pertinent History GI Medical History: Gallbladder Disease History: No Pertinent History Psycho-Social History: Anxiety Female Reproductive Disorders: No Pertinent History - Past Surgical History Past Surgical History: Yes Neuro Surgical History: No Pertinent History Cardiac: No Pertinent History Respiratory: No Pertinent History Gastrointestinal: Cholecystectomy, Other Genitourinary: No Pertinent History Musculoskeletal: No Pertinent History Female Surgical History: No Pertinent History Other Surgical History: colonoscopy - Social History Smoking Status: Never smoker Exposure to second hand smoke: No Drug Use: none Patient Lives Alone: No - Female History Hx Last Menstrual Period: last week Hx Now: No - Nursing Vital Signs Nursing Vital Signs: Initial Vital Signs Temperature 97.0 F 01/02/21 08:11 Pulse Rate 102 H 01/02/21 08:11 Respiratory Rate 18 01/02/21 08:11 Blood Pressure 126/83 01/02/21 08:11 O2 Sat by Pulse Oximetry 97 01/02/21 08:11 Pain Scale Pain Intensity 4 - Physical Exam General Appearance: no apparent distress, alert Eye Exam: PERRL/EOMI, eyes nml inspection Ears, Nose, Throat Exam: normal ENT inspection, pharynx normal, moist mucous membranes Neck Exam: normal inspection, non-tender, supple, full range of motion Respiratory Exam: normal breath sounds, lungs clear, No respiratory distress Cardiovascular Exam: regular rate/rhythm, normal heart sounds Gastrointestinal/Abdomen Exam: soft, tenderness, No mass, No pulsatile mass, No organomegaly Back Exam: normal inspection, normal range of motion, No CVA tenderness, No vertebral tenderness Extremity Exam: normal inspection, normal range of motion, pelvis stable Neurologic Exam: alert, oriented x 3, cooperative, normal mood/affect, nml cerebellar function, sensation nml, No motor deficits Skin Exam: normal color, warm, dry Lymphatic Exam: No adenopathy SpO2 Interpretation: normal SpO2: 97 O2 Delivery: Room Air - Course Nursing assessment & vital signs reviewed: Yes - CT Exams Abdomen/Pelvis CT Interpretation: Tele-radiologist Report (Tiny amount of fluid and the cul-de-sac otherwise negative CT abdomen pelvis.) Ordered Tests: Active Orders 24 hr Category Date Time Status IV Insertion STAT Care 01/02/21 08:16 Active ABDOMEN AND PELVIS W CONTRAST [CT] Stat Exams 01/02/21 08:17 Completed CBC W DIFF Stat Lab 01/02/21 08:29 Completed CMP Stat Lab 01/02/21 08:29 Completed CULTURE,URINE Stat Lab 01/02/21 10:03 Received HCG,QUALITATIVE URINE Stat Lab 01/02/21 10:03 Completed LIPASE Stat Lab 01/02/21 08:29 Completed TROPONIN Q3H Lab 01/02/21 08:29 Completed TROPONIN Q3H Lab 01/02/21 17:30 Ordered TROPONIN Q3H Lab 01/02/21 20:30 Ordered UA W/RFX UR CULTURE Stat Lab 01/02/21 10:03 Completed Medication Summary Discontinued Medications Generic Name Dose Route Start Last Admin Trade Name Freq PRN Reason Stop Dose Admin Sodium Chloride 1,000 mls @ 999 mls/hr 01/02/21 08:16 01/02/21 09:35 Sodium Chloride 0.9% 1000 Ml IV 01/02/21 09:16 Infused .Q1H1M STA Infusion Sodium Chloride Confirm 01/02/21 08:23 Sodium Chloride 0.9% 1000 Ml Administered 01/02/21 08:24 Dose 1,000 mls @ ud .ROUTE .STK-MED ONE Morphine Sulfate 2 mg 01/02/21 08:16 01/02/21 08:26 Morphine Sulfate 2 Mg Inj IV 01/02/21 08:17 2 mg STAT ONE Administration Morphine Sulfate Confirm 01/02/21 08:22 Morphine Sulfate 2 Mg Inj Administered 01/02/21 08:23 Dose 2 mg .ROUTE .STK-MED ONE Nitrofurantoin Macrocrystals 100 mg 01/02/21 11:36 Macrobid 100mg Capsule PO 01/02/21 11:37 ONCE STA Ondansetron HCl 4 mg 01/02/21 08:16 01/02/21 08:26 Zofran 4 Mg/2 Ml Vial IV 01/02/21 08:17 4 mg STAT ONE Administration Ondansetron HCl Confirm 01/02/21 08:22 Zofran 4 Mg/2 Ml Vial Administered 01/02/21 08:23 Dose 4 mg .ROUTE .STK-MED ONE Lab/Rad Data: Laboratory Result Diagrams 01/02/21 08:29 01/02/21 08:29 Laboratory Results 01/02/21 01/02/21 01/02/21 Range/Units 10:03 10:03 08:29 WBC (4.0-10.5) K/mm3 RBC (4.1-5.4) M/mm3 Hgb (12.0-16.0) gm/dl Hct (35-47) % MCV (78-100) fl MCH (26-32) pg MCHC (32-36) g/dl RDW (11.5-14.0) % Plt Count (150-450) K/mm3 MPV (7.5-11.0) fl Gran % (36.0-66.0) % Eos # (Auto) (0-0.5) Absolute Lymphs (auto) (1.0-4.6) Absolute Monos (auto) (0.0-1.3) Lymphocytes % (24.0-44.0) % Monocytes % (0.0-12.0) % Eosinophils % (0.00-5.0) % Basophils % (0.0-0.4) % Absolute Granulocytes (1.4-6.9) Basophils # (0-0.4) Sodium (137-145) mmol/L Potassium (3.5-5.1) mmol/L Chloride (98-107) mmol/L Carbon Dioxide (22-30) mmol/L Anion Gap (5-15) MEQ/L BUN (7-17) mg/dL Creatinine (0.52-1.04) mg/dL Estimated GFR ML/MIN Glucose (74-106) mg/dL Calcium (8.4-10.2) mg/dL Total Bilirubin (0.2-1.3) mg/dL AST (14-36) U/L ALT (0-35) U/L Alkaline Phosphatase (38-126) U/L Troponin I < 0.012 (0.000-0.034) ng/mL Serum Total Protein (6.3-8.2) g/dL Albumin (3.5-5.0) g/dL Lipase (23-300) U/L Urine Color YELLOW (YELLOW) Urine Appearance SLIGHTLY CLOUDY (CLEAR) Urine pH 5.0 (5-6) Ur Specific [place] 1.010 (1.005-1.025) Urine Protein NEGATIVE (Negative) Urine Ketones NEGATIVE (NEGATIVE) Urine Blood LARGE (0-5) Octavio/ul Urine Nitrite NEGATIVE (NEGATIVE) Urine Bilirubin NEGATIVE (NEGATIVE) Urine Urobilinogen NEGATIVE (0-1) mg/dL Ur Leukocyte Esterase MODERATE (NEGATIVE) Urine WBC (Auto) 16-25 (0-5) /HPF Urine RBC (Auto) 0-2 (0-2) /HPF U Epithel Cells (Auto) FEW (FEW) /HPF Urine Bacteria (Auto) FEW (NEGATIVE) /HPF Urine Mucus (Auto) SLIGHT (NEGATIVE) /HPF Urine Culture Reflexed YES (NO) Urine Glucose NEGATIVE (NEGATIVE) mg/dL Urine HCG, Qual NEGATIVE (Negative) 01/02/21 01/02/21 Range/Units 08:29 08:29 WBC 9.1 (4.0-10.5) K/mm3 RBC 5.34 (4.1-5.4) M/mm3 Hgb 14.8 (12.0-16.0) gm/dl Hct 46.0 (35-47) % MCV 86.1 (78-100) fl MCH 27.7 (26-32) pg MCHC 32.2 (32-36) g/dl RDW 13.1 (11.5-14.0) % Plt Count 270 (150-450) K/mm3 MPV 10.5 (7.5-11.0) fl Gran % 70.5 H (36.0-66.0) % Eos # (Auto) 0.18 (0-0.5) Absolute Lymphs (auto) 1.84 (1.0-4.6) Absolute Monos (auto) 0.64 (0.0-1.3) Lymphocytes % 20.3 L (24.0-44.0) % Monocytes % 7.0 (0.0-12.0) % Eosinophils % 2.0 (0.00-5.0) % Basophils % 0.2 (0.0-0.4) % Absolute Granulocytes 6.40 (1.4-6.9) Basophils # 0.02 (0-0.4) Sodium 140 (137-145) mmol/L Potassium 3.5 (3.5-5.1) mmol/L Chloride 100 (98-107) mmol/L Carbon Dioxide 29 (22-30) mmol/L Anion Gap 14.5 (5-15) MEQ/L BUN 7 (7-17) mg/dL Creatinine 0.76 (0.52-1.04) mg/dL Estimated GFR > 60.0 ML/MIN Glucose 94 (74-106) mg/dL Calcium 9.9 (8.4-10.2) mg/dL Total Bilirubin 0.60 (0.2-1.3) mg/dL AST 27 (14-36) U/L ALT 24 (0-35) U/L Alkaline Phosphatase 83 (38-126) U/L Troponin I (0.000-0.034) ng/mL Serum Total Protein 8.3 H (6.3-8.2) g/dL Albumin 5.0 (3.5-5.0) g/dL Lipase 115 (23-300) U/L Urine Color (YELLOW) Urine Appearance (CLEAR) Urine pH (5-6) Ur Specific [place] (1.005-1.025) Urine Protein (Negative) Urine Ketones (NEGATIVE) Urine Blood (0-5) Octavio/ul Urine Nitrite (NEGATIVE) Urine Bilirubin (NEGATIVE) Urine Urobilinogen (0-1) mg/dL Ur Leukocyte Esterase (NEGATIVE) Urine WBC (Auto) (0-5) /HPF Urine RBC (Auto) (0-2) /HPF U Epithel Cells (Auto) (FEW) /HPF Urine Bacteria (Auto) (NEGATIVE) /HPF Urine Mucus (Auto) (NEGATIVE) /HPF Urine Culture Reflexed (NO) Urine Glucose (NEGATIVE) mg/dL Urine HCG, Qual (Negative) - Progress Progress: improved Progress Note: Patient reassessed. Pain resolved. Labs essentially normal. CT abdomen pelvis reveals a tiny amount of fluid in the cul-de-sac otherwise negative CT abdomen pelvis. UA significant for UTI. Patient received a dose of Macrobid in our ED. A prescription for the same was forwarded to patient's pharmacy. Patient agreed to follow-up with her primary care doctor within 48 hours for reevaluation. Portions of this note were created with voice recognition technology. There may be grammatical, spelling, punctuation or sound alike errors 01/02/21 11:42 Counseled pt/family regarding: lab results, diagnosis, need for follow-up, rad results - Departure Departure Disposition: Home Clinical Impression: UTI (urinary tract infection), Abdominal pain Condition: Stable Critical Care Time: No Referrals: PATRICIA HULL CENTRAL OFFICE OPERATOR SUPERVISOR [Primary Care Provider] - Additional Instructions: Discharge/Care Plan TANNERAUGUSTINAIMANTeofilo PEÑA was seen on 01/02/21 in the Emergency Room. The patient was counseled regarding Diagnosis,Lab results, Imaging studies, need for follow up and when to return to the Emergency Room. Prescriptions given: Discharge Note I have spoken with the patient and/or caregivers. I have explained the patient's condition, diagnosis and treatment plan based on the information available to me at this time. I have answered the patient's and/or caregiver's questions and addressed any concerns. The patient and/or caregivers have as good understanding of the patient's diagnosis, condition and treatment plan as can be expected at this point. The vital signs have been stable. The patient's condition is stable and appropriate for discharge from the emergency department. The patient will pursue further outpatient evaluation with the primary care physician or other designated or consulting physician as outlined in the discharge instructions. The patient and/or caregivers are agreeable to this plan of care and follow-up instructions have been explained in detail. The patient and/or caregivers have received these instruction. The patient/and or caregivers are aware that any significant change in condition or worsening of symptoms should prompt an immediate return to this or the closest emergency department or call 911. Prescriptions: Nitrofurantoin Monohyd/M-Cryst [Macrobid 100 mg Capsule] 100 mg PO BID 7 Days #14 capsule
[2021-01-02 08:34] LABS: BASOPHIL % 0.2 % (0.0-0.4); Basophil (Absolute #) 0.02 (0-0.4); Eosinophil (Absolute #) 0.18 (0-0.5); Hemoglobin 14.8 gm/dl (12.0-16.0); Lymphocyte (Absolute #) 1.84 (1.0-4.6); Lymphocytes % 20.3 % (24.0-44.0); Mean Cell Volume 86.1 fl (78-100); Mean Corpuscular Hemoglobin 27.7 pg (26-32); Mean Corpuscular Hgb Concent. 32.2 g/dl (32-36); Mean Platelet Volume 10.5 fl (7.5-11.0); Monocyte (Absolute #) 0.64 (0.0-1.3); Neutrophil % 70.5 % (36.0-66.0); Platelet Count 270 K/mm3 (150-450); Red Blood Count 5.34 M/mm3 (4.1-5.4); Red Cell Distribution Width 13.1 % (11.5-14.0); White Blood Count 9.1 K/mm3 (4.0-10.5)
[2021-01-02 08:44] LABS: ALKALINE PHOSPHATASE 83 U/L (38-126); ANION GAP 14.5 MEQ/L (5-15); BLOOD UREA NITROGEN 7 mg/dL (7-17); CHLORIDE 100 mmol/L (98-107); Calcium 9.9 mg/dL (8.4-10.2); Carbon Dioxide 29 mmol/L (22-30); Creatinine 1 0.76 mg/dL (0.52-1.04); EST GLOMERULAR FILTRATION RATE > 60.0 ML/MIN; Glucose 94 mg/dL (74-106); LIPASE 115 U/L (23-300); Potassium 3.5 mmol/L (3.5-5.1); SGOT/AST 27 U/L (14-36); SGPT/ALT 24 U/L (0-35); SODIUM 140 mmol/L (137-145); Total Protein 8.3 g/dL (6.3-8.2)
[2021-01-02 10:27] LABS: Appearance SLIGHTLY CLOUDY (CLEAR); Bacteria FEW /HPF (NEGATIVE); Bilirubin NEGATIVE (NEGATIVE); Blood LARGE Ery/ul (0-5); Epithelial Cells FEW /HPF (FEW); Glucose NEGATIVE (NEGATIVE); Ketones NEGATIVE (NEGATIVE); Leukocyte Esterase MODERATE (NEGATIVE); Mucus SLIGHT /HPF (NEGATIVE); Nitrite NEGATIVE (NEGATIVE); Protein,Urine Dip NEGATIVE (Negative); RBC 0-2 /HPF (0-2); Urobilinogen NEGATIVE mg/dL (0-1)
--- NOTE | 2021-01-02 11:26 | XRAY ---
Indication: Abdomen pain, nausea, and diarrhea. Colitis. Multiple contiguous axial images obtained through the abdomen and pelvis using 80 cc Isovue 370 contrast. Comparison: None Lung bases clear. Heart not enlarged. Noncontrasted stomach and bowel loops nonobstructed. Normal appendix. Previous cholecystectomy. Tiny cul-de-sac fluid presumed physiologic from rupture/leaking cyst. Remaining liver, pancreas, spleen, adrenal glands, kidneys, ureters, bladder, uterus, and aorta appear unremarkable. No pathologic retroperitoneal lymphadenopathy. Osseous structures intact. Impression: Tiny physiological cul-de-sac fluid. Remaining CT abdomen/pelvis with contrast exam is negative.
[2021-01-02] MEDS ORDERED: Macrobid 100MG Capsule PO STA (11:36)
[2021-01-02] MEDS ORDERED: Macrobid 100MG Capsule ONE (11:43)
[2021-01-02 12:07] VITALS: BP 120/78; PULSE 78; O2SAT 99
== END 2021-01-02 12:05 | disposition home or self-care (01) ==
LOC: ED 08:03
DX: N39.0 Urinary tract infection, site not specified (principal); R10.9 Unspecified abdominal pain
CPT/HCPCS: 36000; 36415; 74177; 80053; 81001; 83690; 84484; 84703; 85025; 87086; 96360; 96374; 96375; 99284; J2270; J2405; A9270-GY

== ENCOUNTER 2021-06-27 12:51 | Emergency (ER) | payer BC ==
--- NOTE | 2021-06-27 13:03 | ERPHSYRPT ---
- History of Present Illness Time Seen by Provider: 06/27/21 13:03 Source: patient Exam Limitations: no limitations Physician History: This is a 20-year-old white female who presents with initially right eye pain followed by bilateral ear pain described as feeling as though her ears are going to explode and headache. Patient denies head injury. There are no new stres sors in her life. She does have a history of hypertension, anxiety and depression. She stated that she could not see out of her right eye earlier today. The loss of vision was in the periphery and was sudden in onset and rapidly resolved. She became concerned and reported the emergency department. She has never had anything like this before. There is no new medications. Timing/Duration: today Location: right eye Severity: mild Apparent Injury: no Associated Symptoms: pain (Now resolved), decreased vision (Now resolved and vision has returned to normal) Chemical Exposure: No Trauma: No Welding Arc/Tanning Bed Exposure: No Allergies/Adverse Reactions: oxaprozin [From Daypro] Allergy (Verified 06/27/21 13:13) Rash escitalopram [From Lexapro] Adverse Reaction (Verified 06/27/21 13:13) Home Medications: Hydrochlorothiazide 25 mg [hydroDIURIL 25 MG] 25 mg PO DAILY 01/06/20 [History] Levonorgestrel-Ethin Estradiol [Larissia-28 Tablet] 1 each PO DAILY 01/06/20 [History] Potassium Chloride 10 Meq Tab* [Klor Con 10 MEQ] 10 meq PO DAILY 01/06/20 [History] Zolpidem Tartrate [Ambien] 6.5 mg PO HS 01/06/20 [History] Hx Tetanus, Diphtheria Vaccination/Date Given: Yes Hx Influenza Vaccination/Date Given: Yes Hx Pneumococcal Vaccination/Date Given: No Travel Risk - International Travel Have you traveled outside of the country in past 3 weeks: No - Coronavirus Screening Are you exhibiting any of the following symptoms?: No Close contact with a COVID-19 positive Pt in past 14-21 Days: No - Vaccine Status Have you recieved a Covid-19 vaccination: No - Review of Systems Constitutional: No Symptoms Eyes: Vision Changes Ears, Nose, & Throat: Ear Pain Respiratory: No Symptoms Cardiac: No Symptoms Abdominal/Gastrointestinal: No Symptoms Genitourinary Symptoms: No Symptoms Musculoskeletal: No Symptoms Skin: No Symptoms Neurological: Headache Psychological: No Symptoms Endocrine: No Symptoms Hematologic/Lymphatic: No Symptoms Immunological/Allergic: No Symptoms All Other Systems: Reviewed and Negative - Past Medical History Pertinent Past Medical History: Yes Neurological History: No Pertinent History ENT History: No Pertinent History Cardiac History: Hypertension Respiratory History: No Pertinent History Endocrine Medical History: No Pertinent History Musculoskeletal History: No Pertinent History GI Medical History: Gallbladder Disease History: No Pertinent History Psycho-Social History: Anxiety Female Reproductive Disorders: No Pertinent History - Past Surgical History Past Surgical History: Yes Neuro Surgical History: No Pertinent History Cardiac: No Pertinent History Respiratory: No Pertinent History Gastrointestinal: Cholecystectomy, Other Genitourinary: No Pertinent History Musculoskeletal: No Pertinent History Female Surgical History: No Pertinent History Other Surgical History: colonoscopy - Social History Smoking Status: Never smoker Exposure to second hand smoke: No Drug Use: none Patient Lives Alone: No - Nursing Vital Signs Nursing Vital Signs: Initial Vital Signs Temperature 97.5 F 06/27/21 13:15 Pulse Rate 90 06/27/21 13:15 Respiratory Rate 19 06/27/21 13:15 Blood Pressure 143/98 06/27/21 13:15 O2 Sat by Pulse Oximetry 100 06/27/21 13:15 Pain Scale Pain Intensity 8 - Physical Exam General Appearance: no apparent distress, alert, anxiety Eye Exam: bilateral eye: normal inspection, PERRL, EOMI Ears, Nose, Throat Exam: normal ENT inspection, moist mucous membranes Neck Exam: normal inspection, non-tender, supple, full range of motion Respiratory Exam: normal breath sounds, lungs clear, airway intact, No chest tenderness, No respiratory distress Cardiovascular Exam: regular rate/rhythm, normal heart sounds, normal peripheral pulses Gastrointestinal Exam: No tenderness Extremity Exam: normal inspection, normal range of motion, pelvis stable Neurologic: alert, oriented x 3, cooperative, data integrity specialist II-XII nml as tested, normal mood/affect, nml cerebellar function, nml station & gait, sensation nml Skin Exam: normal color, warm, dry Lymphatic: No adenopathy SpO2 Interpretation: normal O2 Delivery: Room Air - Course Nursing assessment & vital signs reviewed: Yes Ordered Tests: Active Orders 24 hr Category Date Time Status HEAD WITHOUT CONTRAST [CT] Stat Exams 06/27/21 13:46 Completed CBC W DIFF Stat Lab 06/27/21 13:45 Completed CMP Stat Lab 06/27/21 13:45 Completed HCG,QUALITATIVE URINE Stat Lab 06/27/21 13:56 Completed UA W/RFX UR CULTURE Stat Lab 06/27/21 13:56 Completed Lab/Rad Data: Laboratory Result Diagrams 06/27/21 13:45 06/27/21 13:45 Laboratory Results 06/27/21 06/27/21 06/27/21 Range/Units 13:56 13:56 13:45 WBC (4.0-10.5) K/mm3 RBC (4.1-5.4) M/mm3 Hgb (12.0-16.0) gm/dl Hct (35-47) % MCV (78-100) fl MCH (26-32) pg MCHC (32-36) g/dl RDW (11.5-14.0) % Plt Count (150-450) K/mm3 MPV (7.5-11.0) fl Gran % (36.0-66.0) % Eos # (Auto) (0-0.5) Absolute Lymphs (auto) (1.0-4.6) Absolute Monos (auto) (0.0-1.3) Lymphocytes % (24.0-44.0) % Monocytes % (0.0-12.0) % Eosinophils % (0.00-5.0) % Basophils % (0.0-0.4) % Absolute Granulocytes (1.4-6.9) Basophils # (0-0.4) Sodium 138 (137-145) mmol/L Potassium 3.5 (3.5-5.1) mmol/L Chloride 102 (98-107) mmol/L Carbon Dioxide 22 (22-30) mmol/L Anion Gap 16.5 H (5-15) MEQ/L BUN 7 (7-17) mg/dL Creatinine 0.69 (0.52-1.04) mg/dL Estimated GFR > 60.0 ML/MIN Glucose 97 (74-106) mg/dL Calcium 9.2 (8.4-10.2) mg/dL Total Bilirubin 0.30 (0.2-1.3) mg/dL AST 23 (14-36) U/L ALT 22 (0-35) U/L Alkaline Phosphatase 76 (38-126) U/L Serum Total Protein 8.0 (6.3-8.2) g/dL Albumin 4.6 (3.5-5.0) g/dL Urine Color YELLOW (YELLOW) Urine Appearance SLIGHTLY CLOUDY (CLEAR) Urine pH 5.0 (5-6) Ur Specific Samson 1.015 (1.005-1.025) Urine Protein NEGATIVE (Negative) Urine Ketones TRACE (NEGATIVE) Urine Blood NEGATIVE (0-5) Octavio/ul Urine Nitrite NEGATIVE (NEGATIVE) Urine Bilirubin NEGATIVE (NEGATIVE) Urine Urobilinogen NEGATIVE (0-1) mg/dL Ur Leukocyte Esterase TRACE (NEGATIVE) Urine WBC (Auto) 3-5 (0-5) /HPF Urine RBC (Auto) 3-5 (0-2) /HPF U Epithel Cells (Auto) RARE (FEW) /HPF Urine Bacteria (Auto) NONE (NEGATIVE) /HPF Urine Mucus (Auto) SLIGHT (NEGATIVE) /HPF Urine Culture Reflexed NO (NO) Urine Glucose NEGATIVE (NEGATIVE) mg/dL Urine HCG, Qual NEGATIVE (Negative) 06/27/21 Range/Units 13:45 WBC 12.5 H (4.0-10.5) K/mm3 RBC 5.02 (4.1-5.4) M/mm3 Hgb 13.4 (12.0-16.0) gm/dl Hct 42.4 (35-47) % MCV 84.5 (78-100) fl MCH 26.7 (26-32) pg MCHC 31.6 L (32-36) g/dl RDW 12.8 (11.5-14.0) % Plt Count 239 (150-450) K/mm3 MPV 10.6 (7.5-11.0) fl Gran % 81.4 H (36.0-66.0) % Eos # (Auto) 0.18 (0-0.5) Absolute Lymphs (auto) 1.42 (1.0-4.6) Absolute Monos (auto) 0.72 (0.0-1.3) Lymphocytes % 11.3 L (24.0-44.0) % Monocytes % 5.8 (0.0-12.0) % Eosinophils % 1.4 (0.00-5.0) % Basophils % 0.1 (0.0-0.4) % Absolute Granulocytes 10.19 H (1.4-6.9) Basophils # 0.01 (0-0.4) Sodium (137-145) mmol/L Potassium (3.5-5.1) mmol/L Chloride (98-107) mmol/L Carbon Dioxide (22-30) mmol/L Anion Gap (5-15) MEQ/L BUN (7-17) mg/dL Creatinine (0.52-1.04) mg/dL Estimated GFR ML/MIN Glucose (74-106) mg/dL Calcium (8.4-10.2) mg/dL Total Bilirubin (0.2-1.3) mg/dL AST (14-36) U/L ALT (0-35) U/L Alkaline Phosphatase (38-126) U/L Serum Total Protein (6.3-8.2) g/dL Albumin (3.5-5.0) g/dL Urine Color (YELLOW) Urine Appearance (CLEAR) Urine pH (5-6) Ur Specific Samson (1.005-1.025) Urine Protein (Negative) Urine Ketones (NEGATIVE) Urine Blood (0-5) Octavio/ul Urine Nitrite (NEGATIVE) Urine Bilirubin (NEGATIVE) Urine Urobilinogen (0-1) mg/dL Ur Leukocyte Esterase (NEGATIVE) Urine WBC (Auto) (0-5) /HPF Urine RBC (Auto) (0-2) /HPF U Epithel Cells (Auto) (FEW) /HPF Urine Bacteria (Auto) (NEGATIVE) /HPF Urine Mucus (Auto) (NEGATIVE) /HPF Urine Culture Reflexed (NO) Urine Glucose (NEGATIVE) mg/dL Urine HCG, Qual (Negative) - Progress Progress: improved Progress Note: 06/27/21 15:08 CAT scan of the head shows a left middle fossa extra-axial cystic mass probable arachnoid cyst. Radiology recommends an MRI follow-up. There is also incidental paranasal sinus disease. Counseled pt/family regarding: lab results, diagnosis, need for follow-up, rad results - Departure Departure Disposition: Home Clinical Impression: Headache, Vision loss of right eye, Intracranial arachnoid cyst, Sinusitis Condition: Stable Critical Care Time: No Referrals: [facility] [Primary Care Provider] - Follow up/PCP as directed Additional Instructions: Take all your medications as prescribed. Follow-up with your prescribing physician today to make arrangements for follow-up appointment for further evaluation of intracranial cystic mass including MRI of the brain. Prescriptions: Prednisone 10 mg [Deltasone 10 mg] 10 mg PO TID #12 tablet Azithromycin 250 mg [Zithromax 250 MG TABLET] 250 mg PO ZPACK #6 tablet
[2021-06-27 13:52] LABS: Absolute Neutrophil Ct (ANC) 10.19 (1.4-6.9); BASOPHIL % 0.1 % (0.0-0.4); Basophil (Absolute #) 0.01 (0-0.4); Eosinophil % 1.4 % (0.00-5.0); Eosinophil (Absolute #) 0.18 (0-0.5); Hematocrit 42.4 % (35-47); Hemoglobin 13.4 gm/dl (12.0-16.0); Lymphocyte (Absolute #) 1.42 (1.0-4.6); Lymphocytes % 11.3 % (24.0-44.0); Mean Cell Volume 84.5 fl (78-100); Mean Corpuscular Hemoglobin 26.7 pg (26-32); Mean Corpuscular Hgb Concent. 31.6 g/dl (32-36); Mean Platelet Volume 10.6 fl (7.5-11.0); Monocyte (Absolute #) 0.72 (0.0-1.3); Monocytes % 5.8 % (0.0-12.0); Neutrophil % 81.4 % (36.0-66.0); Platelet Count 239 K/mm3 (150-450); Red Blood Count 5.02 M/mm3 (4.1-5.4); Red Cell Distribution Width 12.8 % (11.5-14.0); White Blood Count 12.5 K/mm3 (4.0-10.5)
[2021-06-27 13:57] LABS: ALBUMIN 4.6 g/dL (3.5-5.0); ALKALINE PHOSPHATASE 76 U/L (38-126); ANION GAP 16.5 MEQ/L (5-15); BLOOD UREA NITROGEN 7 mg/dL (7-17); CHLORIDE 102 mmol/L (98-107); Calcium 9.2 mg/dL (8.4-10.2); Carbon Dioxide 22 mmol/L (22-30); Creatinine 1 0.69 mg/dL (0.52-1.04); EST GLOMERULAR FILTRATION RATE > 60.0 ML/MIN; Glucose 97 mg/dL (74-106); Potassium 3.5 mmol/L (3.5-5.1); SGOT/AST 23 U/L (14-36); SGPT/ALT 22 U/L (0-35); SODIUM 138 mmol/L (137-145)
[2021-06-27 14:14] LABS: Appearance SLIGHTLY CLOUDY (CLEAR); Bilirubin NEGATIVE (NEGATIVE); Blood NEGATIVE Ery/ul (0-5); Epithelial Cells RARE /HPF (FEW); Glucose NEGATIVE (NEGATIVE); Ketones TRACE (NEGATIVE); Leukocyte Esterase TRACE (NEGATIVE); Mucus SLIGHT /HPF (NEGATIVE); Nitrite NEGATIVE (NEGATIVE); Protein,Urine Dip NEGATIVE (Negative); Specific Gravity 1.015 (1.005-1.025); Urobilinogen NEGATIVE mg/dL (0-1)
--- NOTE | 2021-06-27 14:52 | XRAY ---
Indication: Severe headache. Right eye peripheral vision loss. Multiple contiguous axial images obtained through the head without contrast. Comparison: None Left middle fossa demonstrates 2.1 x 3.7 x 2.7 cm ovoid extra-axial cystic mass anteriorly, probable arachnoid cyst. Otherwise no acute intracranial hemorrhage, hydrocephalus, or mass effect. Fourth ventricle is midline without hydrocephalus. Lynch-white matter differentiation preserved. Bony calvarium intact. Mild mucosal thickening both ethmoid, both maxillary, and left sphenoid sinuses. Mastoid air cells are clear. Impression: 1. Left middle fossa extra-axial cystic mass, probable arachnoid cyst. MRI brain may yield further information. 2. Incidental paranasal sinus disease.
== END 2021-06-27 15:21 | disposition home or self-care (01) ==
LOC: ED 12:51
DX: G93.0 Cerebral cysts (principal); H92.03 Otalgia, bilateral; H57.11 Ocular pain, right eye; R51.9 Headache, unspecified; I10 Essential (primary) hypertension; H54.61 Unqualified visual loss, right eye, normal vision left eye; J32.9 Chronic sinusitis, unspecified
CPT/HCPCS: 36415; 70450; 80053; 81001; 84703; 85025; 99284

== ENCOUNTER 2022-08-01 16:53 | Observation (INO) | payer BC, OTHER ==
[2022-08-01 18:23] LABS: Appearance CLEAR (CLEAR); Bilirubin SMALL (NEGATIVE); Dipstick done @ ? MAIN LAB; Glucose NEGATIVE (NEGATIVE); Ketones >=160 (NEGATIVE); Nitrite NEGATIVE (NEGATIVE); Ph 5.5 (5-6); Protein,Urine Dip NEGATIVE (Negative); RBC SMALL Ery/ul (0-5); Urobilinogen 0.2 mg/dL (0-1)
[2022-08-01 18:25] LABS: Bacteria RARE /HPF (NEGATIVE); Epithelial Cells RARE /HPF (FEW); Mucus SLIGHT /HPF (NEGATIVE); WBC 0-2 /HPF (0-5)
[2022-08-01] MEDS ORDERED: Sodium Chloride 0.9% 1000 ML 1,000 ML IV STA ×2 (18:27→22:50)
[2022-08-01 18:30] LABS: Urine Cultured Indicated? NO
[2022-08-01] MEDS ORDERED: Sodium Chloride 0.9% 1000 ML 1,000 ML ONE ×2 (18:36→22:59)
[2022-08-01 18:38] LABS: Absolute Neutrophil Ct (ANC) 18.18 x10^3/uL (1.4-6.9); Basophil (Absolute #) 0.04 x10^3/uL (0-0.4); Eosinophil % 0.1 % (0.00-5.0); Eosinophil (Absolute #) 0.03 x10^3/uL (0-0.5); Hematocrit 42.2 % (35-47); Hemoglobin 13.8 g/dL (12.0-16.0); Lymphocyte (Absolute #) 1.48 x10^3/uL (1.0-4.6); Lymphocytes % 7.1 % (24.0-44.0); Mean Cell Volume 83.9 fL (78-100); Mean Corpuscular Hemoglobin 27.4 pg (26-32); Mean Corpuscular Hgb Concent. 32.7 g/dL (32-36); Monocyte (Absolute #) 1.14 x10^3/uL (0.0-1.3); Monocytes % 5.4 % (0.0-12.0); Neutrophil % 86.7 % (36.0-66.0); Platelet Count 291 x10^3/uL (150-450); Red Blood Count 5.03 x10^6/uL (4.1-5.4); Red Cell Distribution Width 12.9 % (11.5-14.0)
[2022-08-01] MEDS ORDERED: Zofran 4 MG/2 ML VIAL IV ONE (18:44)
[2022-08-01 18:45] LABS: ALBUMIN 4.8 g/dL (3.5-5.0); ALKALINE PHOSPHATASE 97 U/L (38-126); BLOOD UREA NITROGEN 5 mg/dL (7-17); CHLORIDE 100 mmol/L (98-107); Calcium 9.4 mg/dL (8.4-10.2); Carbon Dioxide 24 mmol/L (22-30); Creatinine 1 0.67 mg/dL (0.52-1.04); EST GLOMERULAR FILTRATION RATE > 60.0 ML/MIN; Glucose 96 mg/dL (74-106); LIPASE 77 U/L (23-300); Potassium 3.3 mmol/L (3.5-5.1); SGOT/AST 31 U/L (14-36); SGPT/ALT 24 U/L (0-35); SODIUM 136 mmol/L (137-145); Total Protein 8.7 g/dL (6.3-8.2)
[2022-08-01] MEDS ORDERED: Zofran 4 MG/2 ML VIAL ONE (18:45)
--- NOTE | 2022-08-01 20:23 | ERPHSYRPT ---
- History of Present Illness Time Seen by Provider: 08/01/22 20:21 Historian: patient Exam Limitations: no limitations Patient Subjective Stated Complaint: pt here for left upper abd pain with mid back pain, co nausea and vomiting for about 3 days now. pt was dx with RSV on saturday. Triage Nursing Assessment: pt alert, walked in, resp easy, face mask in place, skin w/d/p. abd soft with bs, no edema noted Physician History: 21-year-old female presents to our ED for evaluation of left flank and left upper abdominal pain for 3 days. Patient states she has been experiencing nausea and vomiting as well. No trauma no fever. Patient states she is RSV positive. Patient symptoms are constant. Symptoms are moderate in intensity. No associated trauma. No hematuria dysuria or urinary frequency. Patient denies a history of the same. No associated chest pain or shortness of breath. Patient voices no other complaints or concerns at this time. Portions of this note were created with voice recognition technology. There may be grammatical, spelling, punctuation or sound alike errors Timing/Duration: today Activities at Onset: none Quality: aching Abdominal Pain Onset Location: LUQ, flank Pain Radiation: no radiation Severity of Pain-Max: moderate Severity of Pain-Current: mild Modifying Factors: Improves With: nothing Associated Symptoms: nausea, vomiting Previous symptoms: no prior history Allergies/Adverse Reactions: oxaprozin [From Daypro] Allergy (Verified 08/02/22 01:16) Rash escitalopram [From Lexapro] Adverse Reaction (Verified 08/02/22 01:16) Home Medications: Hydrochlorothiazide 25 mg [hydroDIURIL 25 MG] 12.5 mg PO QAM 01/06/20 [History] Levonorgestrel/Ethin.estradiol [Larissia-28 Tablet] 1 each PO DAILY 01/06/20 [History] Potassium Chloride Tab* [Klor Con] 10 meq PO DAILY 01/06/20 [History] Zolpidem Tartrate [Ambien] 6.5 mg PO HS 01/06/20 [History] Polyethylene Glycol 3350 [Miralax] 1 pkt PO DIRECTIONS UNKNOWN 08/02/22 [History] Semaglutide [Ozempic] 0.5 mg SQ WEEKLY 08/02/22 [History] Hx Tetanus, Diphtheria Vaccination/Date Given: Yes Hx Influenza Vaccination/Date Given: Yes Hx Pneumococcal Vaccination/Date Given: No Immunizations Up to Date: Yes Travel Risk - International Travel Have you traveled outside of the country in past 3 weeks: No - Coronavirus Screening Are you exhibiting any of the following symptoms?: Yes Symptoms: Fever, Cough: New Onset, Headaches/Body Aches/Fatigue Close contact with a COVID-19 positive Pt in past 14-21 Days: No - Vaccine Status Have you recieved a Covid-19 vaccination: Yes 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 Dates if Unknown: ? - Review of Systems Constitutional: No Symptoms, No Fever, No Chills Eyes: No Symptoms Ears, Nose, & Throat: No Symptoms Respiratory: No Symptoms, No Cough, No Dyspnea Cardiac: No Symptoms, No Chest Pain, No Edema, No Syncope Abdominal/Gastrointestinal: No Symptoms, No Abdominal Pain, No Nausea, No Vomiting, No Diarrhea Genitourinary Symptoms: No Symptoms, No Dysuria Musculoskeletal: No Symptoms, No Back Pain, No Neck Pain Skin: No Symptoms, No Rash Neurological: No Symptoms, No Dizziness, No Focal Weakness, No Sensory Changes Psychological: No Symptoms Endocrine: No Symptoms Hematologic/Lymphatic: No Symptoms Immunological/Allergic: No Symptoms All Other Systems: Reviewed and Negative - Past Medical History Pertinent Past Medical History: Yes Neurological History: No Pertinent History ENT History: No Pertinent History Cardiac History: Hypertension Respiratory History: No Pertinent History Endocrine Medical History: No Pertinent History Musculoskeletal History: No Pertinent History GI Medical History: Gallbladder Disease History: No Pertinent History Psycho-Social History: Anxiety Female Reproductive Disorders: No Pertinent History - Past Surgical History Past Surgical History: Yes Neuro Surgical History: No Pertinent History Cardiac: No Pertinent History Respiratory: No Pertinent History Gastrointestinal: Cholecystectomy, Other Genitourinary: No Pertinent History Musculoskeletal: No Pertinent History Female Surgical History: No Pertinent History Other Surgical History: colonoscopy - Social History Smoking Status: Never smoker Exposure to second hand smoke: No Drug Use: none Patient Lives Alone: No - Female History Hx Last Menstrual Period: 3 weeks ago Hx Now: No - Nursing Vital Signs Nursing Vital Signs: Initial Vital Signs Temperature 97.6 F 08/01/22 17:46 Pulse Rate 122 H 08/01/22 17:46 Respiratory Rate 20 08/01/22 17:46 Blood Pressure 131/79 08/01/22 17:46 O2 Sat by Pulse Oximetry 98 08/01/22 17:46 Pain Scale Pain Intensity 2 - Physical Exam General Appearance: no apparent distress, alert Eye Exam: PERRL/EOMI, eyes nml inspection Ears, Nose, Throat Exam: normal ENT inspection, pharynx normal, moist mucous membranes Neck Exam: normal inspection, non-tender, supple, full range of motion Respiratory Exam: normal breath sounds, lungs clear, No respiratory distress Cardiovascular Exam: regular rate/rhythm, normal heart sounds Gastrointestinal/Abdomen Exam: soft, other (Left-sided flank pain and left upper quadrant pain), No tenderness, No mass Back Exam: normal inspection, normal range of motion, No CVA tenderness, No vertebral tenderness Extremity Exam: normal inspection, normal range of motion, pelvis stable Neurologic Exam: alert, oriented x 3, cooperative, normal mood/affect, nml cerebellar function, sensation nml, No motor deficits Skin Exam: normal color, warm, dry Lymphatic Exam: No adenopathy SpO2 Interpretation: normal SpO2: 99 O2 Delivery: Room Air - Course Nursing assessment & vital signs reviewed: Yes - Radiology Exams Chest X-ray Interpretation: Interpreted by me (Negative chest x-ray) - CT Exams Abdomen/Pelvis CT Interpretation: Tele-radiologist Report (Compared to 01/02/[address] renal stone study. No new acute findings.) Ordered Tests: Active Orders 24 hr Category Date Time Status IV Insertion STAT Care 08/01/22 18:27 Active ABDOMEN AND PELVIS W/0 CONTRAS [CT] Stat Exams 08/01/22 18:29 Taken CHEST 1 VIEW (PORTABLE) Stat Exams 08/01/22 23:15 Taken BLOOD CULTURE Stat Lab 08/01/22 20:22 Received CMP Stat Lab 08/01/22 18:27 Completed HCG,QUALITATIVE URINE Stat Lab 08/01/22 17:27 Completed LIPASE Stat Lab 08/01/22 18:27 Completed Lactic Acid Stat Lab 08/01/22 20:22 Completed PROCALCITONIN Stat Lab 08/01/22 20:40 Completed UA W/RFX CULTURE Stat Lab 08/01/22 18:07 Completed Medication Summary Generic Name Dose Route Start Last Admin Trade Name Freq PRN Reason Stop Dose Admin Sodium Chloride 1,000 mls @ 100 mls/hr 08/02/22 01:45 Sodium Chloride 0.9% 1000 Ml IV 09/01/22 01:44 .Q10H LESLEY Piperacillin Sod/Tazobactam 100 mls @ 200 mls/hr 08/02/22 06:00 Sod 3.375 gm/ Sodium Chloride IV 08/05/22 05:59 Q6HT LESLEY Morphine Sulfate 2 mg 08/02/22 01:38 Morphine Sulfate 2 Mg/Ml Inj IV 08/07/22 01:37 Q4H PRN PRN PAIN Pantoprazole Sodium 40 mg 08/02/22 10:00 Pantoprazole 40 Mg Vial IV 09/01/22 09:59 Q24H LESLEY Discontinued Medications Generic Name Dose Route Start Last Admin Trade Name Freq PRN Reason Stop Dose Admin Acetaminophen 975 mg 08/01/22 21:38 08/01/22 21:46 Acetaminophen 325 Mg Tablet PO 08/01/22 21:39 975 mg STAT ONE Administration Acetaminophen Confirm 08/01/22 21:42 Acetaminophen 325 Mg Tablet Administered 08/01/22 21:43 Dose 975 mg .ROUTE .STK-MED ONE Sodium Chloride 1,000 mls @ 999 mls/hr 08/01/22 18:27 08/01/22 19:44 Sodium Chloride 0.9% 1000 Ml IV 08/01/22 19:27 Infused .Q1H1M STA Infusion Sodium Chloride Confirm 08/01/22 18:36 Sodium Chloride 0.9% 1000 Ml Administered 08/01/22 18:37 Dose 1,000 mls @ ud .ROUTE .STK-MED ONE Piperacillin Sod/Tazobactam 100 mls @ 200 mls/hr 08/01/22 21:54 08/01/22 22:02 Sod 3.375 gm/ Sodium Chloride IV 08/01/22 22:23 200 mls/hr STAT ONE Administration Vancomycin HCl 1 gm in 200 mls @ 125 mls/hr 08/01/22 21:57 08/02/22 00:30 Vancomycin 1 Gram/200 Ml Bag IV 08/01/22 23:32 Infused STAT ONE Infusion Sodium Chloride Confirm 08/01/22 22:00 Sodium Chloride 100ml Mini-Bag Plus Administered 08/01/22 22:01 Dose 100 mls @ ud IV .STK-MED ONE Vancomycin HCl Confirm 08/01/22 22:46 Vancomycin 1 Gram/200 Ml Bag Administered 08/01/22 22:47 Dose 1 gm in 200 mls @ ud IV .STK-MED ONE Sodium Chloride 1,000 mls @ 999 mls/hr 08/01/22 22:50 08/01/22 23:57 Sodium Chloride 0.9% 1000 Ml IV 08/01/22 23:50 Infused .Q1H1M STA Infusion Sodium Chloride Confirm 08/01/22 22:59 Sodium Chloride 0.9% 1000 Ml Administered 08/01/22 23:00 Dose 1,000 mls @ ud .ROUTE .STK-MED ONE Ondansetron HCl 4 mg 08/01/22 18:44 08/01/22 18:46 Ondansetron Hcl 4 Mg/2 Ml Vial IV 08/01/22 18:45 4 mg STAT ONE Administration Ondansetron HCl Confirm 08/01/22 18:45 Ondansetron Hcl 4 Mg/2 Ml Vial Administered 08/01/22 18:46 Dose 4 mg .ROUTE .STK-MED ONE Piperacillin Sod/Tazobactam Sod Confirm 08/01/22 21:59 Piperacillin/Tazobactam Sodium 3.375 Gm Vial Administered 08/01/22 22:00 Dose 3.375 gm IV .STK-MED ONE Lab/Rad Data: Laboratory Result Diagrams 08/01/22 Unknown 08/01/22 18:27 Laboratory Results 08/01/22 08/01/22 08/01/22 Range/Units Unknown 22:00 20:40 WBC 21.0 H (4.0-10.5) x10^3/uL RBC 5.03 (4.1-5.4) x10^6/uL Hgb 13.8 (12.0-16.0) g/dL Hct 42.2 (35-47) % MCV 83.9 (78-100) fL MCH 27.4 (26-32) pg MCHC 32.7 (32-36) g/dL RDW 12.9 (11.5-14.0) % Plt Count 291 (150-450) x10^3/uL MPV 11.0 (7.5-11.0) fL Gran % 86.7 H (36.0-66.0) % Immature Gran % (Auto) 0.5 H (0.00-0.4) % Nucleat RBC Rel Count 0.0 (0.00-0.1) % Eos # (Auto) 0.03 (0-0.5) x10^3/uL Immature Gran # (Auto) 0.10 H (0.00-0.03) x10^3u/L Absolute Lymphs (auto) 1.48 (1.0-4.6) x10^3/uL Absolute Monos (auto) 1.14 (0.0-1.3) x10^3/uL Absolute Nucleated RBC 0.00 (0.00-0.01) x10^3u/L Lymphocytes % 7.1 L (24.0-44.0) % Monocytes % 5.4 (0.0-12.0) % Eosinophils % 0.1 (0.00-5.0) % Basophils % 0.2 (0.0-0.4) % Absolute Granulocytes 18.18 H (1.4-6.9) x10^3/uL Basophils # 0.04 (0-0.4) x10^3/uL Sodium (137-145) mmol/L Potassium (3.5-5.1) mmol/L Chloride (98-107) mmol/L Carbon Dioxide (22-30) mmol/L Anion Gap (5-15) MEQ/L BUN (7-17) mg/dL Creatinine (0.52-1.04) mg/dL Estimated GFR ML/MIN Glucose (74-106) mg/dL Lactic Acid (0.4-2.0) Calcium (8.4-10.2) mg/dL Total Bilirubin (0.2-1.3) mg/dL AST (14-36) U/L ALT (0-35) U/L Alkaline Phosphatase (38-126) U/L Serum Total Protein (6.3-8.2) g/dL Albumin (3.5-5.0) g/dL Lipase (23-300) U/L Procalcitonin 0.116 H (0.030-0.080) ng/mL Urinalys Dipstick Clnc Urine Color (YELLOW) Urine Appearance (CLEAR) Urine pH (5-6) Ur Specific [place] (1.005-1.025) POC Urine Protein Conf (Negative) Urine Ketones (NEGATIVE) Urine Nitrite (NEGATIVE) Urine Bilirubin (NEGATIVE) Urine Urobilinogen (0-1) mg/dL Urine Leukocytes (NEGATIVE) Urine WBC (Auto) (0-5) /HPF Urine RBC (Auto) (0-2) /HPF U Epithel Cells (Auto) (FEW) /HPF Urine Bacteria (Auto) (NEGATIVE) /HPF Urine RBC (0-5) Octavio/ul Urine Mucus (Auto) (NEGATIVE) /HPF Ur Culture Indicated? Urine Glucose (NEGATIVE) mg/dL Urine HCG, Qual (Negative) Influenza Type A Ag NEGATIVE (NEGATIVE) Influenza Type B Ag NEGATIVE (NEGATIVE) RSV (PCR) NEGATIVE (Negative) SARS-CoV-2 (PCR) NEGATIVE (NEGATIVE) 08/01/22 08/01/22 08/01/22 Range/Units 20:22 18:27 18:07 WBC (4.0-10.5) x10^3/uL RBC (4.1-5.4) x10^6/uL Hgb (12.0-16.0) g/dL Hct (35-47) % MCV (78-100) fL MCH (26-32) pg MCHC (32-36) g/dL RDW (11.5-14.0) % Plt Count (150-450) x10^3/uL MPV (7.5-11.0) fL Gran % (36.0-66.0) % Immature Gran % (Auto) (0.00-0.4) % Nucleat RBC Rel Count (0.00-0.1) % Eos # (Auto) (0-0.5) x10^3/uL Immature Gran # (Auto) (0.00-0.03) x10^3u/L Absolute Lymphs (auto) (1.0-4.6) x10^3/uL Absolute Monos (auto) (0.0-1.3) x10^3/uL Absolute Nucleated RBC (0.00-0.01) x10^3u/L Lymphocytes % (24.0-44.0) % Monocytes % (0.0-12.0) % Eosinophils % (0.00-5.0) % Basophils % (0.0-0.4) % Absolute Granulocytes (1.4-6.9) x10^3/uL Basophils # (0-0.4) x10^3/uL Sodium 136 L (137-145) mmol/L Potassium 3.3 L (3.5-5.1) mmol/L Chloride 100 (98-107) mmol/L Carbon Dioxide 24 (22-30) mmol/L Anion Gap 15.0 (5-15) MEQ/L BUN 5 L (7-17) mg/dL Creatinine 0.67 (0.52-1.04) mg/dL Estimated GFR > 60.0 ML/MIN Glucose 96 (74-106) mg/dL Lactic Acid 1.5 (0.4-2.0) Calcium 9.4 (8.4-10.2) mg/dL Total Bilirubin 0.80 (0.2-1.3) mg/dL AST 31 (14-36) U/L ALT 24 (0-35) U/L Alkaline Phosphatase 97 (38-126) U/L Serum Total Protein 8.7 H (6.3-8.2) g/dL Albumin 4.8 (3.5-5.0) g/dL Lipase 77 (23-300) U/L Procalcitonin (0.030-0.080) ng/mL Urinalys Dipstick Clnc MAIN LAB Urine Color YELLOW (YELLOW) Urine Appearance CLEAR (CLEAR) Urine pH 5.5 (5-6) Ur Specific [place] 1.020 (1.005-1.025) POC Urine Protein Conf NEGATIVE (Negative) Urine Ketones >=160 A (NEGATIVE) Urine Nitrite NEGATIVE (NEGATIVE) Urine Bilirubin SMALL A (NEGATIVE) Urine Urobilinogen 0.2 (0-1) mg/dL Urine Leukocytes NEGATIVE (NEGATIVE) Urine WBC (Auto) 0-2 (0-5) /HPF Urine RBC (Auto) 3-5 A (0-2) /HPF U Epithel Cells (Auto) RARE (FEW) /HPF Urine Bacteria (Auto) RARE (NEGATIVE) /HPF Urine RBC SMALL A (0-5) Octavio/ul Urine Mucus (Auto) SLIGHT A (NEGATIVE) /HPF Ur Culture Indicated? NO Urine Glucose NEGATIVE (NEGATIVE) mg/dL Urine HCG, Qual (Negative) Influenza Type A Ag (NEGATIVE) Influenza Type B Ag (NEGATIVE) RSV (PCR) (Negative) SARS-CoV-2 (PCR) (NEGATIVE) 08/01/22 Range/Units 17:27 WBC (4.0-10.5) x10^3/uL RBC (4.1-5.4) x10^6/uL Hgb (12.0-16.0) g/dL Hct (35-47) % MCV (78-100) fL MCH (26-32) pg MCHC (32-36) g/dL RDW (11.5-14.0) % Plt Count (150-450) x10^3/uL MPV (7.5-11.0) fL Gran % (36.0-66.0) % Immature Gran % (Auto) (0.00-0.4) % Nucleat RBC Rel Count (0.00-0.1) % Eos # (Auto) (0-0.5) x10^3/uL Immature Gran # (Auto) (0.00-0.03) x10^3u/L Absolute Lymphs (auto) (1.0-4.6) x10^3/uL Absolute Monos (auto) (0.0-1.3) x10^3/uL Absolute Nucleated RBC (0.00-0.01) x10^3u/L Lymphocytes % (24.0-44.0) % Monocytes % (0.0-12.0) % Eosinophils % (0.00-5.0) % Basophils % (0.0-0.4) % Absolute Granulocytes (1.4-6.9) x10^3/uL Basophils # (0-0.4) x10^3/uL Sodium (137-145) mmol/L Potassium (3.5-5.1) mmol/L Chloride (98-107) mmol/L Carbon Dioxide (22-30) mmol/L Anion Gap (5-15) MEQ/L BUN (7-17) mg/dL Creatinine (0.52-1.04) mg/dL Estimated GFR ML/MIN Glucose (74-106) mg/dL Lactic Acid (0.4-2.0) Calcium (8.4-10.2) mg/dL Total Bilirubin (0.2-1.3) mg/dL AST (14-36) U/L ALT (0-35) U/L Alkaline Phosphatase (38-126) U/L Serum Total Protein (6.3-8.2) g/dL Albumin (3.5-5.0) g/dL Lipase (23-300) U/L Procalcitonin (0.030-0.080) ng/mL Urinalys Dipstick Clnc Urine Color (YELLOW) Urine Appearance (CLEAR) Urine pH (5-6) Ur Specific [place] (1.005-1.025) POC Urine Protein Conf (Negative) Urine Ketones (NEGATIVE) Urine Nitrite (NEGATIVE) Urine Bilirubin (NEGATIVE) Urine Urobilinogen (0-1) mg/dL Urine Leukocytes (NEGATIVE) Urine WBC (Auto) (0-5) /HPF Urine RBC (Auto) (0-2) /HPF U Epithel Cells (Auto) (FEW) /HPF Urine Bacteria (Auto) (NEGATIVE) /HPF Urine RBC (0-5) Octavio/ul Urine Mucus (Auto) (NEGATIVE) /HPF Ur Culture Indicated? Urine Glucose (NEGATIVE) mg/dL Urine HCG, Qual NEGATIVE (Negative) Influenza Type A Ag (NEGATIVE) Influenza Type B Ag (NEGATIVE) RSV (PCR) (Negative) SARS-CoV-2 (PCR) (NEGATIVE) - Progress Progress: improved Progress Note: Patient reassessed. Pain improved. Patient has a leukocytosis of unclear origin. Urinalysis negative. CT abdomen pelvis negative for acute pathology. Procalcitonin elevated. Patient tachycardic. IV fluids infused. Lactic acid within normal limits patient received a dose of Zosyn in our ED. Case discussed with Dr. Mora. Patient has markers of an infection likely in the abdomen due to the location of patient's pain and symptoms. However work-up does not reveal a clear source. We are empirically covering patient with antibiotics. Case discussed with Dr. Mora who excepts admission to observation. Plan of care discussed with patient. She agrees to admission to [facility] for further evaluation and treatment. Portions of this note were created with voice recognition technology. There may be grammatical, spelling, punctuation or sound alike errors 08/02/22 03:06 08/02/22 03:08 Discussed with : Yoselin Will see patient in: hospital (observation) Counseled pt/family regarding: lab results, diagnosis, rad results - Departure Departure Disposition: Home Clinical Impression: Flank pain, Leukocytosis, Nausea & vomiting, Elevated procalcitonin, Tachycardia Condition: Stable Critical Care Time: No
[2022-08-01] MEDS ORDERED: TYLENOL 325 MG PO ONE (21:38)
[2022-08-01] MEDS ORDERED: TYLENOL 325 MG ONE (21:42)
[2022-08-01] MEDS ORDERED: PIPERACILLIN/TAZOBACTAM 3.375 GM in Sodium Chloride 100ML MINI-BAG PLUS 100 ML IV ONE (21:54)
[2022-08-01] MEDS ORDERED: VANCOMYCIN 1 GRAM/200 ML BAG 1 GM/200 ML PIGGYBACK IV ONE ×2 (21:57→22:46)
[2022-08-01] MEDS ORDERED: PIPERACILLIN/TAZOBACTAM IV ONE (21:59)
[2022-08-01] MEDS ORDERED: Sodium Chloride 100ML MINI-BAG PLUS 100 ML IV ONE (22:00)
[2022-08-01 22:38] LABS: INFLUENZA A NEGATIVE (NEGATIVE); INFLUENZA B NEGATIVE (NEGATIVE); RESPIRATORY SYNCTIAL VIRUS NEGATIVE (Negative); SARS-CoV-2 Xpert Express NEGATIVE (NEGATIVE)
[2022-08-02] MEDS ORDERED: MORPHINE SULFATE 2 MG INJ IV PRN (01:38)
[2022-08-02] MEDS ORDERED: Sodium Chloride 0.9% 1000 ML 1,000 ML IV SCH (01:45)
[2022-08-02] MEDS ORDERED: PIPERACILLIN/TAZOBACTAM IV ONE (04:32)
[2022-08-02] MEDS ORDERED: Sodium Chloride 100ML MINI-BAG PLUS 100 ML IV ONE (04:34)
[2022-08-02 05:34] LABS: Absolute Neutrophil Ct (ANC) 11.78 x10^3/uL (1.4-6.9); Basophil (Absolute #) 0.04 x10^3/uL (0-0.4); Eosinophil % 1.4 % (0.00-5.0); Eosinophil (Absolute #) 0.22 x10^3/uL (0-0.5); Hematocrit 37.5 % (35-47); Hemoglobin 12.3 g/dL (12.0-16.0); Lymphocyte (Absolute #) 1.92 x10^3/uL (1.0-4.6); Lymphocytes % 12.5 % (24.0-44.0); Mean Cell Volume 84.1 fL (78-100); Mean Corpuscular Hemoglobin 27.6 pg (26-32); Mean Corpuscular Hgb Concent. 32.8 g/dL (32-36); Mean Platelet Volume 10.4 fL (7.5-11.0); Monocyte (Absolute #) 1.31 x10^3/uL (0.0-1.3); Monocytes % 8.5 % (0.0-12.0); Neutrophil % 76.9 % (36.0-66.0); Platelet Count 220 x10^3/uL (150-450); Red Blood Count 4.46 x10^6/uL (4.1-5.4); Red Cell Distribution Width 13.2 % (11.5-14.0); White Blood Count 15.3 x10^3/uL (4.0-10.5)
[2022-08-02] MEDS ORDERED: PIPERACILLIN/TAZOBACTAM 3.375 GM in Sodium Chloride 100ML MINI-BAG PLUS 100 ML IV SCH (06:00)
[2022-08-02 06:08] LABS: ALBUMIN 3.9 g/dL (3.5-5.0); ALKALINE PHOSPHATASE 76 U/L (38-126); ANION GAP 10.9 MEQ/L (5-15); BLOOD UREA NITROGEN 4 mg/dL (7-17); CHLORIDE 105 mmol/L (98-107); Calcium 8.3 mg/dL (8.4-10.2); Carbon Dioxide 22 mmol/L (22-30); Creatinine 1 0.61 mg/dL (0.52-1.04); EST GLOMERULAR FILTRATION RATE > 60.0 ML/MIN; Glucose 78 mg/dL (74-106); Potassium 3.3 mmol/L (3.5-5.1); SGOT/AST 21 U/L (14-36); SGPT/ALT 21 U/L (0-35); SODIUM 134 mmol/L (137-145); Total Protein 7.2 g/dL (6.3-8.2)
[2022-08-02] MEDS ORDERED: Zofran 4 MG/2 ML VIAL IV STA (07:23)
[2022-08-02] MEDS ORDERED: TYLENOL 325 MG PO STA (07:23)
[2022-08-02] MEDS ORDERED: TYLENOL 325 MG ONE (07:26)
[2022-08-02] MEDS ORDERED: Zofran 4 MG/2 ML VIAL ONE (07:26)
[2022-08-02 07:30] VITALS: BP 103/57; PULSE 103; O2SAT 100
--- NOTE | 2022-08-02 07:35 | PCM.SSS ---
History of Present Illness - Chief Complaint Chief Complaint: leukocytosis History of Present Illness: is a 21 year old female who arrived to the ER with nausea, vomiting and left flank pain, sick x 3 days. no diarrhea, no fever. ua negative, leukocytosis noted. she is feeling better since admission, requesting food and to go home. - Review of Systems Constitutional: No Fever, No Chills Respiratory: No Cough, No Short Of Breath Cardiac: No Chest Pain, No Edema, No Syncope Abdominal/Gastrointestinal: Abdominal Pain, Nausea, Vomiting Medications & Allergies Home Medications: Home Medication List Hydrochlorothiazide 25 mg [hydroDIURIL 25 MG] 12.5 mg PO QAM 01/06/20 [History Confirmed 08/02/22] Levonorgestrel/Ethin.estradiol [Larissia-28 Tablet] 1 each PO DAILY 01/06/20 [History Confirmed 08/02/22] Potassium Chloride Tab* [Klor Con] 10 meq PO DAILY 01/06/20 [History Confirmed 08/02/22] Zolpidem Tartrate [Ambien] 6.5 mg PO HS 01/06/20 [History Confirmed 08/02/22] Levofloxacin [Levofloxacin 500 MG Tablet] 500 mg PO DAILY #7 tablet 08/02/22 [Rx] Ondansetron ODT 4 MG [Zofran Odt 4 mg] 4 mg PO Q6HPRN PRN #30 tab 08/02/22 [Rx] Polyethylene Glycol 3350 [Miralax] 1 pkt PO DIRECTIONS UNKNOWN 08/02/22 [History Confirmed 08/02/22] Semaglutide [Ozempic] 0.5 mg SQ WEEKLY 08/02/22 [History Confirmed 08/02/22] Allergies/Adverse Reactions: Allergies Allergy/AdvReac Type Severity Reaction Status Date / Time oxaprozin [From Daypro] Allergy Rash Verified 08/02/22 01:16 escitalopram [From Lexapro] AdvReac Verified 08/02/22 01:16 - Past Medical History Past Medical History: Yes Neurological History: No Pertinent History ENT History: No Pertinent History Cardiac History: Hypertension Respiratory History: No Pertinent History Endocrine Medical History: No Pertinent History Musculoskelatal History: No Pertinent History GI Medical History: Gallbladder Disease History: No Pertinent History Pyscho-Social History: Anxiety Reproductive Disorders: No Pertinent History Comment: Insomnia & Constipation - Female History Hx Last Menstrual Period: 3 weeks ago Are you now?: No - Past Surgical History Past Surgical History: Yes Neuro Surgical History: No Pertinent History Cardiac History: No Pertinent History Respiratory Surgery: No Pertinent History GI Surgical History: Cholecystectomy, Other Genitourinary Surgical Hx: No Pertinent History Musculskeletal Surgical Hx: No Pertinent History Female Surgical History: No Pertinent History Other Surgical History: colonoscopy - Social History Smoking Status: Never smoker Exposure to second hand smoke: No Alcohol: Occasionally Drug Use: none - Physical Exam Vital Signs: Vital Signs - 24 hr Temp Pulse Resp BP Pulse Ox 08/02/22 07:29 96.9 F 103 H 18 103/57 100 08/02/22 05:13 97.3 F 89 18 102/57 98 08/02/22 03:09 99 08/02/22 01:00 97.6 F 89 106/65 99 08/02/22 00:00 89 106/65 95 08/01/22 23:00 94 H 115/78 97 08/01/22 22:00 104 H 122/81 97 08/01/22 21:00 109 H 115/88 98 08/01/22 20:00 107 H 16 103/64 99 08/01/22 19:00 110 H 16 111/80 99 08/01/22 18:02 128 H 22 131/79 98 08/01/22 17:46 97.6 F 122 H 20 131/79 98 General Appearance: no apparent distress, obese Neurologic Exam: alert, oriented x 3 Respiratory Exam: normal breath sounds, lungs clear, No respiratory distress Cardiovascular Exam: regular rate/rhythm, normal heart sounds, normal peripheral pulses Gastrointestinal/Abdomen Exam: soft, normal bowel sounds, No tenderness, No mass Back Exam: No CVA tenderness, No vertebral tenderness, No rash Results - Labs Lab/Micro Results: Lab Results-Last 24 Hours 08/01/22 08/01/22 08/01/22 Range/Units 17:27 18:07 18:27 WBC (4.0-10.5) x10^3/uL RBC (4.1-5.4) x10^6/uL Hgb (12.0-16.0) g/dL Hct (35-47) % MCV (78-100) fL MCH (26-32) pg MCHC (32-36) g/dL RDW (11.5-14.0) % Plt Count (150-450) x10^3/uL MPV (7.5-11.0) fL Gran % (36.0-66.0) % Immature Gran % (Auto) (0.00-0.4) % Nucleat RBC Rel Count (0.00-0.1) % Eos # (Auto) (0-0.5) x10^3/uL Immature Gran # (Auto) (0.00-0.03) x10^3u/L Absolute Lymphs (auto) (1.0-4.6) x10^3/uL Absolute Monos (auto) (0.0-1.3) x10^3/uL Absolute Nucleated RBC (0.00-0.01) x10^3u/L Lymphocytes % (24.0-44.0) % Monocytes % (0.0-12.0) % Eosinophils % (0.00-5.0) % Basophils % (0.0-0.4) % Absolute Granulocytes (1.4-6.9) x10^3/uL Basophils # (0-0.4) x10^3/uL Sodium 136 L (137-145) mmol/L Potassium 3.3 L (3.5-5.1) mmol/L Chloride 100 (98-107) mmol/L Carbon Dioxide 24 (22-30) mmol/L Anion Gap 15.0 (5-15) MEQ/L BUN 5 L (7-17) mg/dL Creatinine 0.67 (0.52-1.04) mg/dL Estimated GFR > 60.0 ML/MIN Glucose 96 (74-106) mg/dL Lactic Acid (0.4-2.0) Calcium 9.4 (8.4-10.2) mg/dL Total Bilirubin 0.80 (0.2-1.3) mg/dL AST 31 (14-36) U/L ALT 24 (0-35) U/L Alkaline Phosphatase 97 (38-126) U/L Serum Total Protein 8.7 H (6.3-8.2) g/dL Albumin 4.8 (3.5-5.0) g/dL Lipase 77 (23-300) U/L Procalcitonin (0.030-0.080) ng/mL Urinalys Dipstick Clnc MAIN LAB Urine Color YELLOW (YELLOW) Urine Appearance CLEAR (CLEAR) Urine pH 5.5 (5-6) Ur Specific [place] 1.020 (1.005-1.025) POC Urine Protein Conf NEGATIVE (Negative) Urine Ketones >=160 A (NEGATIVE) Urine Nitrite NEGATIVE (NEGATIVE) Urine Bilirubin SMALL A (NEGATIVE) Urine Urobilinogen 0.2 (0-1) mg/dL Urine Leukocytes NEGATIVE (NEGATIVE) Urine WBC (Auto) 0-2 (0-5) /HPF Urine RBC (Auto) 3-5 A (0-2) /HPF U Epithel Cells (Auto) RARE (FEW) /HPF Urine Bacteria (Auto) RARE (NEGATIVE) /HPF Urine RBC SMALL A (0-5) Octavio/ul Urine Mucus (Auto) SLIGHT A (NEGATIVE) /HPF Ur Culture Indicated? NO Urine Glucose NEGATIVE (NEGATIVE) mg/dL Urine HCG, Qual NEGATIVE (Negative) Influenza Type A Ag (NEGATIVE) Influenza Type B Ag (NEGATIVE) RSV (PCR) (Negative) SARS-CoV-2 (PCR) (NEGATIVE) 08/01/22 08/01/22 08/01/22 Range/Units 20:22 20:40 22:00 WBC (4.0-10.5) x10^3/uL RBC (4.1-5.4) x10^6/uL Hgb (12.0-16.0) g/dL Hct (35-47) % MCV (78-100) fL MCH (26-32) pg MCHC (32-36) g/dL RDW (11.5-14.0) % Plt Count (150-450) x10^3/uL MPV (7.5-11.0) fL Gran % (36.0-66.0) % Immature Gran % (Auto) (0.00-0.4) % Nucleat RBC Rel Count (0.00-0.1) % Eos # (Auto) (0-0.5) x10^3/uL Immature Gran # (Auto) (0.00-0.03) x10^3u/L Absolute Lymphs (auto) (1.0-4.6) x10^3/uL Absolute Monos (auto) (0.0-1.3) x10^3/uL Absolute Nucleated RBC (0.00-0.01) x10^3u/L Lymphocytes % (24.0-44.0) % Monocytes % (0.0-12.0) % Eosinophils % (0.00-5.0) % Basophils % (0.0-0.4) % Absolute Granulocytes (1.4-6.9) x10^3/uL Basophils # (0-0.4) x10^3/uL Sodium (137-145) mmol/L Potassium (3.5-5.1) mmol/L Chloride (98-107) mmol/L Carbon Dioxide (22-30) mmol/L Anion Gap (5-15) MEQ/L BUN (7-17) mg/dL Creatinine (0.52-1.04) mg/dL Estimated GFR ML/MIN Glucose (74-106) mg/dL Lactic Acid 1.5 (0.4-2.0) Calcium (8.4-10.2) mg/dL Total Bilirubin (0.2-1.3) mg/dL AST (14-36) U/L ALT (0-35) U/L Alkaline Phosphatase (38-126) U/L Serum Total Protein (6.3-8.2) g/dL Albumin (3.5-5.0) g/dL Lipase (23-300) U/L Procalcitonin 0.116 H (0.030-0.080) ng/mL Urinalys Dipstick Clnc Urine Color (YELLOW) Urine Appearance (CLEAR) Urine pH (5-6) Ur Specific [place] (1.005-1.025) POC Urine Protein Conf (Negative) Urine Ketones (NEGATIVE) Urine Nitrite (NEGATIVE) Urine Bilirubin (NEGATIVE) Urine Urobilinogen (0-1) mg/dL Urine Leukocytes (NEGATIVE) Urine WBC (Auto) (0-5) /HPF Urine RBC (Auto) (0-2) /HPF U Epithel Cells (Auto) (FEW) /HPF Urine Bacteria (Auto) (NEGATIVE) /HPF Urine RBC (0-5) Octavio/ul Urine Mucus (Auto) (NEGATIVE) /HPF Ur Culture Indicated? Urine Glucose (NEGATIVE) mg/dL Urine HCG, Qual (Negative) Influenza Type A Ag NEGATIVE (NEGATIVE) Influenza Type B Ag NEGATIVE (NEGATIVE) RSV (PCR) NEGATIVE (Negative) SARS-CoV-2 (PCR) NEGATIVE (NEGATIVE) 08/01/22 08/02/22 08/02/22 Range/Units Unknown 05:30 05:30 WBC 21.0 H 15.3 H (4.0-10.5) x10^3/uL RBC 5.03 4.46 (4.1-5.4) x10^6/uL Hgb 13.8 12.3 (12.0-16.0) g/dL Hct 42.2 37.5 (35-47) % MCV 83.9 84.1 (78-100) fL MCH 27.4 27.6 (26-32) pg MCHC 32.7 32.8 (32-36) g/dL RDW 12.9 13.2 (11.5-14.0) % Plt Count 291 220 (150-450) x10^3/uL MPV 11.0 10.4 (7.5-11.0) fL Gran % 86.7 H 76.9 H (36.0-66.0) % Immature Gran % (Auto) 0.5 H 0.4 (0.00-0.4) % Nucleat RBC Rel Count 0.0 0.0 (0.00-0.1) % Eos # (Auto) 0.03 0.22 (0-0.5) x10^3/uL Immature Gran # (Auto) 0.10 H 0.06 H (0.00-0.03) x10^3u/L Absolute Lymphs (auto) 1.48 1.92 (1.0-4.6) x10^3/uL Absolute Monos (auto) 1.14 1.31 H (0.0-1.3) x10^3/uL Absolute Nucleated RBC 0.00 0.00 (0.00-0.01) x10^3u/L Lymphocytes % 7.1 L 12.5 L (24.0-44.0) % Monocytes % 5.4 8.5 (0.0-12.0) % Eosinophils % 0.1 1.4 (0.00-5.0) % Basophils % 0.2 0.3 (0.0-0.4) % Absolute Granulocytes 18.18 H 11.78 H (1.4-6.9) x10^3/uL Basophils # 0.04 0.04 (0-0.4) x10^3/uL Sodium 134 L (137-145) mmol/L Potassium 3.3 L (3.5-5.1) mmol/L Chloride 105 (98-107) mmol/L Carbon Dioxide 22 (22-30) mmol/L Anion Gap 10.9 (5-15) MEQ/L BUN 4 L (7-17) mg/dL Creatinine 0.61 (0.52-1.04) mg/dL Estimated GFR > 60.0 ML/MIN Glucose 78 (74-106) mg/dL Lactic Acid (0.4-2.0) Calcium 8.3 L (8.4-10.2) mg/dL Total Bilirubin 0.80 (0.2-1.3) mg/dL AST 21 (14-36) U/L ALT 21 (0-35) U/L Alkaline Phosphatase 76 (38-126) U/L Serum Total Protein 7.2 (6.3-8.2) g/dL Albumin 3.9 (3.5-5.0) g/dL Lipase (23-300) U/L Procalcitonin (0.030-0.080) ng/mL Urinalys Dipstick Clnc Urine Color (YELLOW) Urine Appearance (CLEAR) Urine pH (5-6) Ur Specific [place] (1.005-1.025) POC Urine Protein Conf (Negative) Urine Ketones (NEGATIVE) Urine Nitrite (NEGATIVE) Urine Bilirubin (NEGATIVE) Urine Urobilinogen (0-1) mg/dL Urine Leukocytes (NEGATIVE) Urine WBC (Auto) (0-5) /HPF Urine RBC (Auto) (0-2) /HPF U Epithel Cells (Auto) (FEW) /HPF Urine Bacteria (Auto) (NEGATIVE) /HPF Urine RBC (0-5) Octavio/ul Urine Mucus (Auto) (NEGATIVE) /HPF Ur Culture Indicated? Urine Glucose (NEGATIVE) mg/dL Urine HCG, Qual (Negative) Influenza Type A Ag (NEGATIVE) Influenza Type B Ag (NEGATIVE) RSV (PCR) (Negative) SARS-CoV-2 (PCR) (NEGATIVE) - Radiology Impressions Radiology Exams & Impressions: Radiology Procedures Category Date Time Status ABDOMEN AND PELVIS W/0 CONTRAS [CT] Stat Exams 08/01/22 18:29 Taken CHEST 1 VIEW (PORTABLE) Stat Exams 08/01/22 23:15 Taken Assessment/Plan (1) Viral gastroenteritis Current Visit: Yes Status: Acute Assessment & Plan: appears viral, elevated white count likely due to vomiting. pain seems muscular from vomiting. Code(s): A08.4 - VIRAL INTESTINAL INFECTION, UNSPECIFIED (2) Leukocytosis Current Visit: Yes Status: Acute Code(s): D72.829 - ELEVATED WHITE BLOOD CELL COUNT, UNSPECIFIED (3) Flank pain Current Visit: Yes Status: Acute Code(s): R10.9 - UNSPECIFIED ABDOMINAL PAIN Hospital Summary - Vitals & Intake/Output Vital Signs: Vital Signs Temperature 96.9 F 08/02/22 07:29 Pulse Rate 103 H 08/02/22 07:29 Respiratory Rate 18 08/02/22 07:29 Blood Pressure 103/57 08/02/22 07:29 O2 Sat by Pulse Oximetry 100 08/02/22 07:29 Intake & Output: Intake & Output 07/30/22 07/31/22 08/01/22 08/02/22 11:59 11:59 11:59 11:59 Weight 108.6 kg - Lab Result Diagrams: 08/02/22 05:30 08/02/22 05:30 Lab Results-Last 24 Hrs: Lab Results-Last 24 Hours 08/01/22 08/01/22 08/01/22 Range/Units 17:27 18:07 18:27 WBC (4.0-10.5) x10^3/uL RBC (4.1-5.4) x10^6/uL Hgb (12.0-16.0) g/dL Hct (35-47) % MCV (78-100) fL MCH (26-32) pg MCHC (32-36) g/dL RDW (11.5-14.0) % Plt Count (150-450) x10^3/uL MPV (7.5-11.0) fL Gran % (36.0-66.0) % Immature Gran % (Auto) (0.00-0.4) % Nucleat RBC Rel Count (0.00-0.1) % Eos # (Auto) (0-0.5) x10^3/uL Immature Gran # (Auto) (0.00-0.03) x10^3u/L Absolute Lymphs (auto) (1.0-4.6) x10^3/uL Absolute Monos (auto) (0.0-1.3) x10^3/uL Absolute Nucleated RBC (0.00-0.01) x10^3u/L Lymphocytes % (24.0-44.0) % Monocytes % (0.0-12.0) % Eosinophils % (0.00-5.0) % Basophils % (0.0-0.4) % Absolute Granulocytes (1.4-6.9) x10^3/uL Basophils # (0-0.4) x10^3/uL Sodium 136 L (137-145) mmol/L Potassium 3.3 L (3.5-5.1) mmol/L Chloride 100 (98-107) mmol/L Carbon Dioxide 24 (22-30) mmol/L Anion Gap 15.0 (5-15) MEQ/L BUN 5 L (7-17) mg/dL Creatinine 0.67 (0.52-1.04) mg/dL Estimated GFR > 60.0 ML/MIN Glucose 96 (74-106) mg/dL Lactic Acid (0.4-2.0) Calcium 9.4 (8.4-10.2) mg/dL Total Bilirubin 0.80 (0.2-1.3) mg/dL AST 31 (14-36) U/L ALT 24 (0-35) U/L Alkaline Phosphatase 97 (38-126) U/L Serum Total Protein 8.7 H (6.3-8.2) g/dL Albumin 4.8 (3.5-5.0) g/dL Lipase 77 (23-300) U/L Procalcitonin (0.030-0.080) ng/mL Urinalys Dipstick Clnc MAIN LAB Urine Color YELLOW (YELLOW) Urine Appearance CLEAR (CLEAR) Urine pH 5.5 (5-6) Ur Specific [place] 1.020 (1.005-1.025) POC Urine Protein Conf NEGATIVE (Negative) Urine Ketones >=160 A (NEGATIVE) Urine Nitrite NEGATIVE (NEGATIVE) Urine Bilirubin SMALL A (NEGATIVE) Urine Urobilinogen 0.2 (0-1) mg/dL Urine Leukocytes NEGATIVE (NEGATIVE) Urine WBC (Auto) 0-2 (0-5) /HPF Urine RBC (Auto) 3-5 A (0-2) /HPF U Epithel Cells (Auto) RARE (FEW) /HPF Urine Bacteria (Auto) RARE (NEGATIVE) /HPF Urine RBC SMALL A (0-5) Octavio/ul Urine Mucus (Auto) SLIGHT A (NEGATIVE) /HPF Ur Culture Indicated? NO Urine Glucose NEGATIVE (NEGATIVE) mg/dL Urine HCG, Qual NEGATIVE (Negative) Influenza Type A Ag (NEGATIVE) Influenza Type B Ag (NEGATIVE) RSV (PCR) (Negative) SARS-CoV-2 (PCR) (NEGATIVE) 08/01/22 08/01/22 08/01/22 Range/Units 20:22 20:40 22:00 WBC (4.0-10.5) x10^3/uL RBC (4.1-5.4) x10^6/uL Hgb (12.0-16.0) g/dL Hct (35-47) % MCV (78-100) fL MCH (26-32) pg MCHC (32-36) g/dL RDW (11.5-14.0) % Plt Count (150-450) x10^3/uL MPV (7.5-11.0) fL Gran % (36.0-66.0) % Immature Gran % (Auto) (0.00-0.4) % Nucleat RBC Rel Count (0.00-0.1) % Eos # (Auto) (0-0.5) x10^3/uL Immature Gran # (Auto) (0.00-0.03) x10^3u/L Absolute Lymphs (auto) (1.0-4.6) x10^3/uL Absolute Monos (auto) (0.0-1.3) x10^3/uL Absolute Nucleated RBC (0.00-0.01) x10^3u/L Lymphocytes % (24.0-44.0) % Monocytes % (0.0-12.0) % Eosinophils % (0.00-5.0) % Basophils % (0.0-0.4) % Absolute Granulocytes (1.4-6.9) x10^3/uL Basophils # (0-0.4) x10^3/uL Sodium (137-145) mmol/L Potassium (3.5-5.1) mmol/L Chloride (98-107) mmol/L Carbon Dioxide (22-30) mmol/L Anion Gap (5-15) MEQ/L BUN (7-17) mg/dL Creatinine (0.52-1.04) mg/dL Estimated GFR ML/MIN Glucose (74-106) mg/dL Lactic Acid 1.5 (0.4-2.0) Calcium (8.4-10.2) mg/dL Total Bilirubin (0.2-1.3) mg/dL AST (14-36) U/L ALT (0-35) U/L Alkaline Phosphatase (38-126) U/L Serum Total Protein (6.3-8.2) g/dL Albumin (3.5-5.0) g/dL Lipase (23-300) U/L Procalcitonin 0.116 H (0.030-0.080) ng/mL Urinalys Dipstick Clnc Urine Color (YELLOW) Urine Appearance (CLEAR) Urine pH (5-6) Ur Specific [place] (1.005-1.025) POC Urine Protein Conf (Negative) Urine Ketones (NEGATIVE) Urine Nitrite (NEGATIVE) Urine Bilirubin (NEGATIVE) Urine Urobilinogen (0-1) mg/dL Urine Leukocytes (NEGATIVE) Urine WBC (Auto) (0-5) /HPF Urine RBC (Auto) (0-2) /HPF U Epithel Cells (Auto) (FEW) /HPF Urine Bacteria (Auto) (NEGATIVE) /HPF Urine RBC (0-5) Octavio/ul Urine Mucus (Auto) (NEGATIVE) /HPF Ur Culture Indicated? Urine Glucose (NEGATIVE) mg/dL Urine HCG, Qual (Negative) Influenza Type A Ag NEGATIVE (NEGATIVE) Influenza Type B Ag NEGATIVE (NEGATIVE) RSV (PCR) NEGATIVE (Negative) SARS-CoV-2 (PCR) NEGATIVE (NEGATIVE) 08/01/22 08/02/22 08/02/22 Range/Units Unknown 05:30 05:30 WBC 21.0 H 15.3 H (4.0-10.5) x10^3/uL RBC 5.03 4.46 (4.1-5.4) x10^6/uL Hgb 13.8 12.3 (12.0-16.0) g/dL Hct 42.2 37.5 (35-47) % MCV 83.9 84.1 (78-100) fL MCH 27.4 27.6 (26-32) pg MCHC 32.7 32.8 (32-36) g/dL RDW 12.9 13.2 (11.5-14.0) % Plt Count 291 220 (150-450) x10^3/uL MPV 11.0 10.4 (7.5-11.0) fL Gran % 86.7 H 76.9 H (36.0-66.0) % Immature Gran % (Auto) 0.5 H 0.4 (0.00-0.4) % Nucleat RBC Rel Count 0.0 0.0 (0.00-0.1) % Eos # (Auto) 0.03 0.22 (0-0.5) x10^3/uL Immature Gran # (Auto) 0.10 H 0.06 H (0.00-0.03) x10^3u/L Absolute Lymphs (auto) 1.48 1.92 (1.0-4.6) x10^3/uL Absolute Monos (auto) 1.14 1.31 H (0.0-1.3) x10^3/uL Absolute Nucleated RBC 0.00 0.00 (0.00-0.01) x10^3u/L Lymphocytes % 7.1 L 12.5 L (24.0-44.0) % Monocytes % 5.4 8.5 (0.0-12.0) % Eosinophils % 0.1 1.4 (0.00-5.0) % Basophils % 0.2 0.3 (0.0-0.4) % Absolute Granulocytes 18.18 H 11.78 H (1.4-6.9) x10^3/uL Basophils # 0.04 0.04 (0-0.4) x10^3/uL Sodium 134 L (137-145) mmol/L Potassium 3.3 L (3.5-5.1) mmol/L Chloride 105 (98-107) mmol/L Carbon Dioxide 22 (22-30) mmol/L Anion Gap 10.9 (5-15) MEQ/L BUN 4 L (7-17) mg/dL Creatinine 0.61 (0.52-1.04) mg/dL Estimated GFR > 60.0 ML/MIN Glucose 78 (74-106) mg/dL Lactic Acid (0.4-2.0) Calcium 8.3 L (8.4-10.2) mg/dL Total Bilirubin 0.80 (0.2-1.3) mg/dL AST 21 (14-36) U/L ALT 21 (0-35) U/L Alkaline Phosphatase 76 (38-126) U/L Serum Total Protein 7.2 (6.3-8.2) g/dL Albumin 3.9 (3.5-5.0) g/dL Lipase (23-300) U/L Procalcitonin (0.030-0.080) ng/mL Urinalys Dipstick Clnc Urine Color (YELLOW) Urine Appearance (CLEAR) Urine pH (5-6) Ur Specific [place] (1.005-1.025) POC Urine Protein Conf (Negative) Urine Ketones (NEGATIVE) Urine Nitrite (NEGATIVE) Urine Bilirubin (NEGATIVE) Urine Urobilinogen (0-1) mg/dL Urine Leukocytes (NEGATIVE) Urine WBC (Auto) (0-5) /HPF Urine RBC (Auto) (0-2) /HPF U Epithel Cells (Auto) (FEW) /HPF Urine Bacteria (Auto) (NEGATIVE) /HPF Urine RBC (0-5) Octavio/ul Urine Mucus (Auto) (NEGATIVE) /HPF Ur Culture Indicated? Urine Glucose (NEGATIVE) mg/dL Urine HCG, Qual (Negative) Influenza Type A Ag (NEGATIVE) Influenza Type B Ag (NEGATIVE) RSV (PCR) (Negative) SARS-CoV-2 (PCR) (NEGATIVE) - Radiology Exams Ordered Rad Exams-Entire Visit: Radiology Procedures Category Date Time Status ABDOMEN AND PELVIS W/0 CONTRAS [CT] Stat Exams 08/01/22 18:29 Taken CHEST 1 VIEW (PORTABLE) Stat Exams 08/01/22 23:15 Taken - Discharge Disposition: Home, Self-Care Condition: Stable Prescriptions: New Levofloxacin [Levofloxacin 500 MG Tablet] 500 mg PO DAILY #7 tablet Ondansetron ODT 4 MG [Zofran Odt 4 mg] 4 mg PO Q6HPRN PRN #30 tab PRN Reason: Nausea Continue Potassium Chloride Tab* [Klor Con] 10 meq PO DAILY Levonorgestrel/Ethin.estradiol [[place]iss[place]-28 Tablet] 1 each PO DAILY Hydrochlorothiazide 25 mg [hydroDIURIL 25 MG] 12.5 mg PO QAM Zolpidem Tartrate [Ambien] 6.5 mg PO HS Semaglutide [Ozempic] 0.5 mg SQ WEEKLY Polyethylene Glycol 3350 [Miralax] 1 pkt PO DIRECTIONS UNKNOWN Follow up with: PETER PICKARD NP [Primary Care Provider] -
--- NOTE | 2022-08-02 08:40 | XRAY ---
Indication: Right chest pain. Pneumonia. Comparison: March 26, 2022 Portable chest again demonstrates normal heart and lungs. Bony thorax intact with minimal scoliosis. No new/acute findings.
--- NOTE | 2022-08-02 08:40 | XRAY ---
Indication: Left flank pain. Multiple contiguous axial images obtained through the abdomen and pelvis without contrast using renal stone protocol. Comparison: January 02, 2021 Lung bases clear. Heart not enlarged. No renal calculus or evidence for obstructive uropathy in either system. Noncontrasted stomach and bowel loops appear nonobstructed with normal appendix. Again 13.1 cm splenomegaly and cholecystectomy. No free fluid/air. Remaining liver, pancreas, spleen, adrenal glands, kidneys, ureters, bladder, uterus, and aorta are unremarkable for noncontrast exam. Osseous structures intact. No ventral or inguinal hernias. Impression: 1. Continued negative renal calculus or evidence for obstructive uropathy. 2. Again incidental splenomegaly. 3. Remaining CT abdomen/pelvis without contrast exam is again negative.
[2022-08-02] MEDS ORDERED: PROTONIX 40 MG IV IV SCH (10:00)
== END 2022-08-02 10:27 | disposition home or self-care (01) ==
LOC: ED 16:53 → MED SURG 08-02 00:55
PROVIDERS: ADMIT Family Medicine; ATTEND Family Medicine
DX: A08.4 Viral intestinal infection, unspecified (principal); D72.829 Elevated white blood cell count, unspecified; R10.9 Unspecified abdominal pain; R00.0 Tachycardia, unspecified; I10 Essential (primary) hypertension; Z79.899 Other long term (current) drug therapy; Z20.828 Contact with and (suspected) exposure to other viral communicable diseases
CPT/HCPCS: 0241U; 36000; 36415; 71045; 74176; 80053; 81015; 81025; 83605; 83690; 84145; 85025; 87040; 96360; 96361; 96365; 96367; 96374; 96375; 99285; G0378; J2405; A9270-GY; J3370

== ENCOUNTER 2024-08-05 16:57 | Observation (INO) | payer BC, OTHER ==
[2024-08-05 18:06] LABS: Appearance Clear (Clear); Bacteria Rare /HPF (None Seen); Bilirubin Negative (Negative); Blood Negative (Negative); Epithelial Cells None Seen /HPF (None Seen); Glucose, Urine Negative (Negative); Hyaline Casts NONE SEEN /LPF (0-2); Ketones Negative (Negative); Nitrite Negative (Negative); Ph 5.5 (4.6-8.0); Protein,Urine Dip Negative (Negative); RBC 0-2 /HPF (0-5); Urobilinogen 0.2 mg/dL (0.2)
[2024-08-05 18:08] LABS: Leukocyte Esterase Trace (Negative)
[2024-08-05] MEDS ORDERED: Sodium Chloride 0.9% 1000 ML 1,000 ML ONE (18:26)
[2024-08-05] MEDS: Sodium Chloride 0.9% 1000 ML 1,000 ML IV STA (18:28)
[2024-08-05 18:39] LABS: Absolute Neutrophil Ct (ANC) 9.82 x10^3/uL (1.56-6.13); BASOPHIL % 0.2 % (0.1-1.2); Basophil (Absolute #) 0.02 x10^3/uL (0.01-0.08); Eosinophil % 1.4 % (0.7-5.8); Eosinophil (Absolute #) 0.18 x10^3/uL (0.04-0.36); Hematocrit 40.5 % (34.1-44.9); Hemoglobin 13.4 g/dL (11.2-15.7); IMMATURE GRAN # 0.05 x10^3u/L (0.001-0.031); IMMATURE GRAN % 0.4 % (0.001-0.429); Lymphocytes % 15.6 % (19.3-51.7); Mean Cell Volume 83.9 fL (79.4-94.8); Mean Corpuscular Hemoglobin 27.7 pg (25.6-32.2); Mean Corpuscular Hgb Concent. 33.1 g/dL (32.2-35.5); Mean Platelet Volume 10.4 fL (9.4-12.3); Monocyte (Absolute #) 0.74 x10^3/uL (0.24-0.86); Monocytes % 5.8 % (4.7-12.5); Neutrophil % 76.6 % (34.0-71.1); Platelet Count 252 x10^3/uL (182-369); Red Blood Count 4.83 x10^6/uL (3.93-5.22); Red Cell Distribution Width 13.2 % (11.7-14.4); White Blood Count 12.8 x10^3/uL (3.98-10.04)
[2024-08-05 18:52] LABS: HCG SERUM TEST NEGATIVE (NEGATIVE)
--- NOTE | 2024-08-05 18:52 | ERPHSYRPT ---
- History of Present Illness Historian: patient Exam Limitations: no limitations Patient Subjective Stated Complaint: pt here for abd pain that radiates to right side since yesterday,with nausea, chills no fever Triage Nursing Assessment: pt alert, walked in, holding abd at times, resp easy, skin w/d/p. abd large and rounded, moves all ext well Timing/Duration: yesterday Abdominal Pain Onset Location: RLQ, periumbilical Pain Radiation: RLQ Severity of Pain-Max: moderate Severity of Pain-Current: moderate Modifying Factors: Improves With: nothing Associated Symptoms: nausea, vomiting Previous symptoms: no prior history Body Map: 1 - pain 2 - pain radiation Hx Tetanus, Diphtheria Vaccination/Date Given: No Hx Influenza Vaccination/Date Given: Yes Hx Pneumococcal Vaccination/Date Given: No Immunizations Up to Date: Yes <MARILY JOHNSON - Last Filed: 08/05/24 18:57> <AZEEM DUONG - Last Filed: 08/06/24 00:30> - History of Present Illness Time Seen by Provider: 08/05/24 18:49 Physician History: Patient is 23-year-old female without any significant past medical history came to the emergency room with complaining of abdominal pain initially in periumbilical area radiating to the right lower quadrant. Patient c/o nausea and vomiting. Patient has recently changed her control pills and her last menstrual period was 6 weeks ago. Patient denies any other symptoms. (MARILY JOHNSON) Allergies/Adverse Reactions: oxaprozin [From Daypro] Allergy (Verified 08/05/24 17:31) Rash escitalopram [From Lexapro] Adverse Reaction (Verified 08/05/24 17:31) Home Medications: Zolpidem Tartrate [Ambien] 6.5 mg PO HS 01/06/20 [History] Ethinyl Estradiol/Drospirenone [Lauryn 28 Tablet] 1 each PO DAILY 08/05/24 [History] Metoprolol Tartrate 25 mg [Lopressor 25MG Tab] 25 mg PO DAILY 08/05/24 [History] Travel Risk - International Travel Have you traveled outside of the country in past 3 weeks: No - Emerging Infectious Disease Are you exhibiting symptoms associated with any current EIDs: Yes Symptoms: Abdominal Pain, Vomitting <ALEX,MARILY - Last Filed: 08/05/24 18:57> - Review of Systems Constitutional: Fever, Chills Eyes: No Symptoms Ears, Nose, & Throat: No Symptoms Respiratory: No Cough, No Dyspnea Cardiac: No Chest Pain, No Edema, No Syncope Abdominal/Gastrointestinal: Abdominal Pain, Nausea, Vomiting, No Diarrhea Genitourinary Symptoms: No Dysuria Musculoskeletal: No Back Pain, No Neck Pain Skin: No Rash Neurological: No Dizziness, No Focal Weakness, No Sensory Changes Psychological: No Symptoms Endocrine: No Symptoms All Other Systems: Reviewed and Negative <ALEX,MARILY - Last Filed: 08/05/24 18:57> - Past Medical History Pertinent Past Medical History: Yes Neurological History: No Pertinent History ENT History: No Pertinent History Cardiac History: Hypertension Respiratory History: No Pertinent History Endocrine Medical History: No Pertinent History Musculoskeletal History: No Pertinent History GI Medical History: Gallbladder Disease History: No Pertinent History Psycho-Social History: Depression Female Reproductive Disorders: No Pertinent History Other Medical History: Insomnia & Constipation - Past Surgical History Past Surgical History: Yes Neuro Surgical History: No Pertinent History Cardiac: No Pertinent History Respiratory: No Pertinent History Gastrointestinal: Cholecystectomy, Other Genitourinary: No Pertinent History Musculoskeletal: No Pertinent History Female Surgical History: No Pertinent History Other Surgical History: colonoscopy - Female History Hx Last Menstrual Period: jun 12 Hx Now: No - Social History Smoking Status: Never smoker Exposure to second hand smoke: No Drug Use: none Patient Lives Alone: No - Social Determinants of Health Will the patient participate in the screening: Yes Do you worry about a steady place to live?: No Do you have any problems with any of the following?: No known problems In the past 12 months,have you had to go without utilities?: No Transportation Issues: No Has anyone in your support network made you feel unsafe?: No Have you or anyone in your house had to go without enough: No <ALEX,MARILY - Last Filed: 08/05/24 18:57> - Physical Exam General Appearance: no apparent distress, alert Eye Exam: PERRL/EOMI, eyes nml inspection Ears, Nose, Throat Exam: normal ENT inspection, pharynx normal, moist mucous membranes Neck Exam: normal inspection, non-tender, supple, full range of motion Respiratory Exam: normal breath sounds, lungs clear, No respiratory distress Cardiovascular Exam: regular rate/rhythm, normal heart sounds Gastrointestinal/Abdomen Exam: soft, tenderness (RLQ), No mass Back Exam: normal inspection, normal range of motion, No CVA tenderness, No vertebral tenderness Extremity Exam: normal inspection, normal range of motion, pelvis stable Neurologic Exam: alert, oriented x 3, cooperative, normal mood/affect, nml cerebellar function, sensation nml, No motor deficits Skin Exam: normal color, warm, dry SpO2: 97 <MARILY JOHNSON - Last Filed: 08/05/24 18:57> - Nursing Vital Signs Nursing Vital Signs: Initial Vital Signs Temperature 98.4 F 08/05/24 17:30 Pulse Rate 88 08/05/24 17:30 Respiratory Rate 18 08/05/24 17:30 Blood Pressure 152/107 08/05/24 17:30 O2 Sat by Pulse Oximetry 96 08/05/24 17:30 Pain Scale Pain Intensity 5 - Course Nursing assessment & vital signs reviewed: Yes - CT Exams Abdomen/Pelvis CT Interpretation: Tele-radiologist Report <MARILY JOHNSON - Last Filed: 08/05/24 18:57> - CT Exams Abdomen/Pelvis CT Interpretation: Discussed w/radiologist (Mild Appendicitis) <AZEEM DUONG - Last Filed: 08/06/24 00:30> Ordered Tests: Active Orders 24 hr Category Date Time Status ABDOMEN AND PELVIS W CONTRAST [CT] Stat Exams 08/05/24 17:36 Taken AMYLASE Stat Lab 08/05/24 18:30 Completed CBC W DIFF Stat Lab 08/05/24 18:30 Completed CMP Stat Lab 08/05/24 18:30 Completed HCG QUALITATIVE, SERUM Stat Lab 08/05/24 18:30 Completed LIPASE Stat Lab 08/05/24 18:30 Completed UA W/RFX UR CULTURE Stat Lab 08/05/24 17:32 Completed Transfer Order Routine Transfer 08/05/24 Ordered Medication Summary Discontinued Medications Generic Name Dose Route Start Last Admin Trade Name Freq PRN Reason Stop Dose Admin Sodium Chloride 1,000 mls @ 999 mls/hr 08/05/24 17:35 08/05/24 18:28 Sodium Chloride 0.9% 1000 Ml IV 08/05/24 18:35 999 mls/hr .Q1H1M STA Administration Sodium Chloride Confirm 08/05/24 18:26 Sodium Chloride 0.9% 1000 Ml Administered 08/05/24 18:27 Dose 1,000 mls @ ud .ROUTE .STK-MED ONE Piperacillin Sod/Tazobactam 100 mls @ 200 mls/hr 08/05/24 22:59 08/06/24 00:03 Sod 3.375 gm/ Sodium Chloride IV 08/05/24 23:28 200 mls/hr STAT ONE Administration Acetaminophen 1,000 mg in 100 mls @ 400 mls/hr 08/05/24 23:00 08/05/24 23:43 Ofirmev IV 08/05/24 23:14 400 mls/hr 1HRPRIOR ONE Administration Sodium Chloride Confirm 08/05/24 23:36 Sodium Chloride 100ml Mini-Bag Plus Administered 08/05/24 23:37 Dose 100 mls @ ud IV .STK-MED ONE Acetaminophen Confirm 08/05/24 23:37 Ofirmev Administered 08/05/24 23:38 Dose 100 mls @ ud IV .STK-MED ONE Sodium Chloride Confirm 08/05/24 23:55 Sodium Chloride 100ml Mini-Bag Plus Administered 08/05/24 23:56 Dose 100 mls @ ud IV .STK-MED ONE Ondansetron HCl 4 mg 08/05/24 23:58 08/06/24 00:02 Ondansetron Hcl 4 Mg/2 Ml Vial IV 08/05/24 23:59 4 mg STAT ONE Administration Ondansetron HCl Confirm 08/05/24 23:59 Ondansetron Hcl 4 Mg/2 Ml Vial Administered 08/06/24 00:00 Dose 4 mg .ROUTE .STK-MED ONE Piperacillin Sod/Tazobactam Sod Confirm 08/05/24 23:36 Piperacillin/Tazobactam Sodium 3.375 Gm Vial Administered 08/05/24 23:37 Dose 3.375 gm IV .STK-MED ONE Piperacillin Sod/Tazobactam Sod Confirm 08/05/24 23:55 Piperacillin/Tazobactam Sodium 3.375 Gm Vial Administered 08/05/24 23:56 Dose 3.375 gm [facility] Lab/Rad Data: Laboratory Result Diagrams 08/05/24 18:30 08/05/24 18:30 Laboratory Results 08/05/24 08/05/24 08/05/24 Range/Units 18:30 18:30 18:30 WBC 12.8 H (3.98-10.04) x10^3/uL RBC 4.83 (3.93-5.22) x10^6/uL Hgb 13.4 (11.2-15.7) g/dL Hct 40.5 (34.1-44.9) % MCV 83.9 (79.4-94.8) fL MCH 27.7 (25.6-32.2) pg MCHC 33.1 (32.2-35.5) g/dL RDW 13.2 (11.7-14.4) % Plt Count 252 (182-369) x10^3/uL MPV 10.4 (9.4-12.3) fL Gran % 76.6 H (34.0-71.1) % Immature Gran % (Auto) 0.4 (0.001-0.429) % Nucleat RBC Rel Count 0.0 (0.00-0.2) % Eos # (Auto) 0.18 (0.04-0.36) x10^3/uL Immature Gran # (Auto) 0.05 H (0.001-0.031) x10^3u/L Absolute Lymphs (auto) 2.00 (1.18-3.74) x10^3/uL Absolute Monos (auto) 0.74 (0.24-0.86) x10^3/uL Absolute Nucleated RBC 0.00 (0.00-0.012) x10^3u/L Lymphocytes % 15.6 L (19.3-51.7) % Monocytes % 5.8 (4.7-12.5) % Eosinophils % 1.4 (0.7-5.8) % Basophils % 0.2 (0.1-1.2) % Absolute Granulocytes 9.82 H (1.56-6.13) x10^3/uL Basophils # 0.02 (0.01-0.08) x10^3/uL Sodium 137 (135-145) mmol/L Potassium 3.9 (3.5-5.1) mmol/L Chloride 108 H (98-107) mmol/L Carbon Dioxide 20 L (22-30) mmol/L Anion Gap 13.3 (5-15) MEQ/L BUN 8 (7-17) mg/dL Creatinine 0.82 (0.52-1.04) mg/dL Estimated GFR 101.7 ML/MIN Glucose 95 (74-106) mg/dL Calcium 9.2 (8.4-10.2) mg/dL Total Bilirubin 0.40 (0.2-1.3) mg/dL AST 26 (14-36) U/L ALT 20 (0-35) U/L Alkaline Phosphatase 74 (38-126) U/L Serum Total Protein 7.5 (6.3-8.2) g/dL Albumin 4.4 (3.5-5.0) g/dL Amylase 82 (30-110) U/L Lipase 109 (23-300) U/L Serum HCG, Qual NEGATIVE (NEGATIVE) Urine Color (Yellow) Urine Appearance (Clear) Urine pH (4.6-8.0) Ur Specific [place] (1.005-1.030) Urine Protein (Negative) Urine Glucose (UA) (Negative) mg/dL Urine Ketones (Negative) Urine Blood (Negative) Urine Nitrite (Negative) Urine Bilirubin (Negative) Urine Urobilinogen (0.2) mg/dL Ur Leukocyte Esterase (Negative) U Hyaline Cast (Auto) (0-2) /LPF Urine Microscopic RBC (0-5) /HPF Urine Microscopic WBC (0-5) /HPF Ur Epithelial Cells (None Seen) /HPF Urine Bacteria (None Seen) /HPF Urine Culture Reflexed (NO) 08/05/24 Range/Units 17:32 WBC (3.98-10.04) x10^3/uL RBC (3.93-5.22) x10^6/uL Hgb (11.2-15.7) g/dL Hct (34.1-44.9) % MCV (79.4-94.8) fL MCH (25.6-32.2) pg MCHC (32.2-35.5) g/dL RDW (11.7-14.4) % Plt Count (182-369) x10^3/uL MPV (9.4-12.3) fL Gran % (34.0-71.1) % Immature Gran % (Auto) (0.001-0.429) % Nucleat RBC Rel Count (0.00-0.2) % Eos # (Auto) (0.04-0.36) x10^3/uL Immature Gran # (Auto) (0.001-0.031) x10^3u/L Absolute Lymphs (auto) (1.18-3.74) x10^3/uL Absolute Monos (auto) (0.24-0.86) x10^3/uL Absolute Nucleated RBC (0.00-0.012) x10^3u/L Lymphocytes % (19.3-51.7) % Monocytes % (4.7-12.5) % Eosinophils % (0.7-5.8) % Basophils % (0.1-1.2) % Absolute Granulocytes (1.56-6.13) x10^3/uL Basophils # (0.01-0.08) x10^3/uL Sodium (135-145) mmol/L Potassium (3.5-5.1) mmol/L Chloride (98-107) mmol/L Carbon Dioxide (22-30) mmol/L Anion Gap (5-15) MEQ/L BUN (7-17) mg/dL Creatinine (0.52-1.04) mg/dL Estimated GFR ML/MIN Glucose (74-106) mg/dL Calcium (8.4-10.2) mg/dL Total Bilirubin (0.2-1.3) mg/dL AST (14-36) U/L ALT (0-35) U/L Alkaline Phosphatase (38-126) U/L Serum Total Protein (6.3-8.2) g/dL Albumin (3.5-5.0) g/dL Amylase (30-110) U/L Lipase (23-300) U/L Serum HCG, Qual (NEGATIVE) Urine Color Yellow (Yellow) Urine Appearance Clear (Clear) Urine pH 5.5 (4.6-8.0) Ur Specific [place] 1.010 (1.005-1.030) Urine Protein Negative (Negative) Urine Glucose (UA) Negative (Negative) mg/dL Urine Ketones Negative (Negative) Urine Blood Negative (Negative) Urine Nitrite Negative (Negative) Urine Bilirubin Negative (Negative) Urine Urobilinogen 0.2 (0.2) mg/dL Ur Leukocyte Esterase Trace A (Negative) U Hyaline Cast (Auto) NONE SEEN (0-2) /LPF Urine Microscopic RBC 0-2 (0-5) /HPF Urine Microscopic WBC 3-5 (0-5) /HPF Ur Epithelial Cells None Seen (None Seen) /HPF Urine Bacteria Rare A (None Seen) /HPF Urine Culture Reflexed NO (NO) - Progress Progress: unchanged Discussed with : Willian (Spoke with & discussed case with Dr. Jose Alfredo Mendoza: will consult this morning at [facility] Other (Spoke with & discussed case with Dr. Paz - obs) Will see patient in: hospital (observation) Counseled pt/family regarding: lab results, diagnosis, rad results <AZEEM DUONG - Last Filed: 08/06/24 00:30> - Progress Progress Note: 08/05/24 20:[address] Duong @ 2047: perrl, eomi, pharynx pink, TM's not injected, lungs clear, no cardiac rub, abdominal B.S. normal, alert & cooperative. (AZEEM DUONG) Medical Desision Making - Diagnostic Testing Diagnostic test were ordered, analyzed, and reviewed by me: Yes Radiological Interpretation: Discussed w/ radiologist <AZEEM DUONG - Last Filed: 08/06/24 00:30> <MARILY JOHNSON - Last Filed: 08/05/24 18:57> - Departure Departure Disposition: Observation Critical Care Time: No <AZEEM DUONG - Last Filed: 08/06/24 00:30> - Departure Clinical Impression: Appendicitis Condition: Stable Referrals: PETER PICKARD NP [Primary Care Provider] - Follow up/PCP as directed
[2024-08-05 18:53] LABS: ALBUMIN 4.4 g/dL (3.5-5.0); ANION GAP 13.3 MEQ/L (5-15); BILIRUBIN,TOTAL 0.4 mg/dL (0.2-1.3); Calcium 9.2 mg/dL (8.4-10.2); Creatinine 1 0.82 mg/dL (0.52-1.04); EST GLOMERULAR FILTRATION RATE 101.7 ML/MIN; Potassium 3.9 mmol/L (3.5-5.1); Total Protein 7.5 g/dL (6.3-8.2)
[2024-08-05] MEDS ORDERED: PIPERACILLIN/TAZOBACTAM IV ONE ×2 (23:36→23:55)
[2024-08-05] MEDS ORDERED: Sodium Chloride 100ML MINI-BAG PLUS 100 ML IV ONE ×2 (23:36→23:55)
[2024-08-05] MEDS ORDERED: OFIRMEV 100 ML IV ONE (23:37)
[2024-08-05] MEDS: OFIRMEV 1,000 MG/100 ML ML IV ONE (23:43)
[2024-08-05] MEDS ORDERED: Zofran 4 MG/2 ML VIAL ONE (23:59)
[2024-08-06] MEDS: Zofran 4 MG/2 ML VIAL IV ONE (00:02)
[2024-08-06] MEDS: PIPERACILLIN/TAZOBACTAM 3.375 GM in Sodium Chloride 100ML MINI-BAG PLUS 100 ML IV ONE (00:03)
--- NOTE | 2024-08-06 02:27 | PCM.HP ---
History of Present Illness - Chief Complaint Chief Complaint: Appendicitis Date: 08/06/24 History of Present Illness: 23 years old very pleasant lady with no significant past medical history except hypertension initially came to the ER complaining of 1 day history of right lower quadrant abdominal pain with nausea and vomiting. She denied having any fever. She denied having any symptoms as before. In the ER her vital signs were stable. As for his blood workup concern it was remarkable for high white cell count CT was concerning for acute appendicitis. Patient admitted for surgical evaluation. She received Zosyn in the ER - Review of Systems All Other Systems: Reviewed and Negative (14 systems reviewed and marked ve except mentioned in [place]) Medications & Allergies Home Medications: Home Medication List Zolpidem Tartrate [Ambien] 6.5 mg PO HS 01/06/20 [History Confirmed 08/06/24] Ethinyl Estradiol/Drospirenone [Lauryn 28 Tablet] 1 each PO DAILY 08/05/24 [History Confirmed 08/06/24] Metoprolol Tartrate 25 mg [Lopressor 25MG Tab] 25 mg PO DAILY 08/05/24 [History Confirmed 08/06/24] Allergies/Adverse Reactions: Allergies Allergy/AdvReac Type Severity Reaction Status Date / Time oxaprozin [From Daypro] Allergy Rash Verified 08/05/24 17:31 escitalopram [From Lexapro] AdvReac Verified 08/05/24 17:31 - Past Medical History Past Medical History: Yes Neurological History: No Pertinent History ENT History: No Pertinent History Cardiac History: Hypertension Respiratory History: No Pertinent History Endocrine Medical History: No Pertinent History Musculoskelatal History: No Pertinent History GI Medical History: Gallbladder Disease History: No Pertinent History Pyscho-Social History: Depression Reproductive Disorders: No Pertinent History Comment: Insomnia & Constipation - Female History Hx Last Menstrual Period: jun 12 Are you now?: No - Past Surgical History Past Surgical History: Yes Neuro Surgical History: No Pertinent History Cardiac History: No Pertinent History Respiratory Surgery: No Pertinent History GI Surgical History: Cholecystectomy, Other Genitourinary Surgical Hx: No Pertinent History Musculskeletal Surgical Hx: No Pertinent History Female Surgical History: No Pertinent History Other Surgical History: colonoscopy Significant Family History: no pertinent family hx - Social History Smoking Status: Never smoker Exposure to second hand smoke: No Alcohol: Occasionally Drug Use: none - Social Determinants of Health Will the patient participate in the screening: Yes Do you worry about a steady place to live?: No Do you have any problems with any of the following?: No known problems In the past 12 months,have you had to go without utilities?: No Have you or anyone in your house had to go without enough: No Transportation Issues: No Has anyone in your support network made you feel unsafe?: No Does the patient want assistance with any of the above?: No - Physical Exam Vital Signs: Vital Signs - 24 hr Temp Pulse Resp BP BP Pulse Ox 08/06/24 01:55 97.5 F 83 17 131/87 96 08/06/24 01:54 97.5 F 83 17 131/87 96 08/06/24 01:47 97.5 F 83 17 131/87 96 08/06/24 01:00 75 18 110/65 95 08/06/24 00:30 16 120/73 96 08/06/24 00:12 16 123/81 97 08/05/24 18:57 97 08/05/24 18:35 89 18 131/71 97 08/05/24 18:30 89 16 131/71 96 08/05/24 18:00 152/119 94 L 08/05/24 17:30 98.4 F 88 18 152/107 96 Additional Findings: 08/06/24 02:26 HEENT Young aged, average built in no distress NECK Supple,no thyromegaly, CVS S1+S2 + 0, no murmers RESP Bilateral equal air entry without Crepts/Wheezes heard GIT Soft non tender,non distended Skin, No rah, no Bruises LEGS No Edema PSYCH Normal,mood, judgement and insight NEURO AOX3, no focal deficit Results - Labs Lab/Micro Results: Lab Results-Last 24 Hours 08/05/24 08/05/24 08/05/24 Range/Units 17:32 18:30 18:30 WBC 12.8 H (3.98-10.04) x10^3/uL RBC 4.83 (3.93-5.22) x10^6/uL Hgb 13.4 (11.2-15.7) g/dL Hct 40.5 (34.1-44.9) % MCV 83.9 (79.4-94.8) fL MCH 27.7 (25.6-32.2) pg MCHC 33.1 (32.2-35.5) g/dL RDW 13.2 (11.7-14.4) % Plt Count 252 (182-369) x10^3/uL MPV 10.4 (9.4-12.3) fL Gran % 76.6 H (34.0-71.1) % Immature Gran % (Auto) 0.4 (0.001-0.429) % Nucleat RBC Rel Count 0.0 (0.00-0.2) % Eos # (Auto) 0.18 (0.04-0.36) x10^3/uL Immature Gran # (Auto) 0.05 H (0.001-0.031) x10^3u/L Absolute Lymphs (auto) 2.00 (1.18-3.74) x10^3/uL Absolute Monos (auto) 0.74 (0.24-0.86) x10^3/uL Absolute Nucleated RBC 0.00 (0.00-0.012) x10^3u/L Lymphocytes % 15.6 L (19.3-51.7) % Monocytes % 5.8 (4.7-12.5) % Eosinophils % 1.4 (0.7-5.8) % Basophils % 0.2 (0.1-1.2) % Absolute Granulocytes 9.82 H (1.56-6.13) x10^3/uL Basophils # 0.02 (0.01-0.08) x10^3/uL Sodium 137 (135-145) mmol/L Potassium 3.9 (3.5-5.1) mmol/L Chloride 108 H (98-107) mmol/L Carbon Dioxide 20 L (22-30) mmol/L Anion Gap 13.3 (5-15) MEQ/L BUN 8 (7-17) mg/dL Creatinine 0.82 (0.52-1.04) mg/dL Estimated GFR 101.7 ML/MIN Glucose 95 (74-106) mg/dL Calcium 9.2 (8.4-10.2) mg/dL Total Bilirubin 0.40 (0.2-1.3) mg/dL AST 26 (14-36) U/L ALT 20 (0-35) U/L Alkaline Phosphatase 74 (38-126) U/L Serum Total Protein 7.5 (6.3-8.2) g/dL Albumin 4.4 (3.5-5.0) g/dL Amylase 82 (30-110) U/L Lipase 109 (23-300) U/L Serum HCG, Qual (NEGATIVE) Urine Color Yellow (Yellow) Urine Appearance Clear (Clear) Urine pH 5.5 (4.6-8.0) Ur Specific [place] 1.010 (1.005-1.030) Urine Protein Negative (Negative) Urine Glucose (UA) Negative (Negative) mg/dL Urine Ketones Negative (Negative) Urine Blood Negative (Negative) Urine Nitrite Negative (Negative) Urine Bilirubin Negative (Negative) Urine Urobilinogen 0.2 (0.2) mg/dL Ur Leukocyte Esterase Trace A (Negative) U Hyaline Cast (Auto) NONE SEEN (0-2) /LPF Urine Microscopic RBC 0-2 (0-5) /HPF Urine Microscopic WBC 3-5 (0-5) /HPF Ur Epithelial Cells None Seen (None Seen) /HPF Urine Bacteria Rare A (None Seen) /HPF Urine Culture Reflexed NO (NO) 08/05/24 Range/Units 18:30 WBC (3.98-10.04) x10^3/uL RBC (3.93-5.22) x10^6/uL Hgb (11.2-15.7) g/dL Hct (34.1-44.9) % MCV (79.4-94.8) fL MCH (25.6-32.2) pg MCHC (32.2-35.5) g/dL RDW (11.7-14.4) % Plt Count (182-369) x10^3/uL MPV (9.4-12.3) fL Gran % (34.0-71.1) % Immature Gran % (Auto) (0.001-0.429) % Nucleat RBC Rel Count (0.00-0.2) % Eos # (Auto) (0.04-0.36) x10^3/uL Immature Gran # (Auto) (0.001-0.031) x10^3u/L Absolute Lymphs (auto) (1.18-3.74) x10^3/uL Absolute Monos (auto) (0.24-0.86) x10^3/uL Absolute Nucleated RBC (0.00-0.012) x10^3u/L Lymphocytes % (19.3-51.7) % Monocytes % (4.7-12.5) % Eosinophils % (0.7-5.8) % Basophils % (0.1-1.2) % Absolute Granulocytes (1.56-6.13) x10^3/uL Basophils # (0.01-0.08) x10^3/uL Sodium (135-145) mmol/L Potassium (3.5-5.1) mmol/L Chloride (98-107) mmol/L Carbon Dioxide (22-30) mmol/L Anion Gap (5-15) MEQ/L BUN (7-17) mg/dL Creatinine (0.52-1.04) mg/dL Estimated GFR ML/MIN Glucose (74-106) mg/dL Calcium (8.4-10.2) mg/dL Total Bilirubin (0.2-1.3) mg/dL AST (14-36) U/L ALT (0-35) U/L Alkaline Phosphatase (38-126) U/L Serum Total Protein (6.3-8.2) g/dL Albumin (3.5-5.0) g/dL Amylase (30-110) U/L Lipase (23-300) U/L Serum HCG, Qual NEGATIVE (NEGATIVE) Urine Color (Yellow) Urine Appearance (Clear) Urine pH (4.6-8.0) Ur Specific [place] (1.005-1.030) Urine Protein (Negative) Urine Glucose (UA) (Negative) mg/dL Urine Ketones (Negative) Urine Blood (Negative) Urine Nitrite (Negative) Urine Bilirubin (Negative) Urine Urobilinogen (0.2) mg/dL Ur Leukocyte Esterase (Negative) U Hyaline Cast (Auto) (0-2) /LPF Urine Microscopic RBC (0-5) /HPF Urine Microscopic WBC (0-5) /HPF Ur Epithelial Cells (None Seen) /HPF Urine Bacteria (None Seen) /HPF Urine Culture Reflexed (NO) - Radiology Impressions Radiology Exams & Impressions: Radiology Procedures Category Date Time Status ABDOMEN AND PELVIS W CONTRAST [CT] Stat Exams 08/05/24 17:36 Taken Assessment/Plan (1) Appendicitis Current Visit: Yes Status: Acute Code(s): K37 - UNSPECIFIED APPENDICITIS (2) Abdominal pain Current Visit: No Status: Acute Code(s): R10.9 - UNSPECIFIED ABDOMINAL PAIN (3) Hypertension Current Visit: No Status: Acute Code(s): I10 - ESSENTIAL (PRIMARY) HYPERTENSION Telemedicine Encounter - Telemedicine Encounter Telemedicine Encounter: The entirety of this encounter was performed via Telemedicine This visit was performed using real-time audio and video connection between my location and thepatients locationwith the assistance of a surrogateat the patients location. Written or verbal consent was obtained from the patient/guardian to perform this visit usingZOOM TV technology. Any patient questions regarding the telemedicine interaction were answered. Acute appendicitis Will continue Zosyn Pain management with morphine 2 mg every 4 hours as per need IV fluids to be continued Surgical evaluation underway hopefully will be taken to or in the morning for appendicectomy Hypertension Blood pressure pretty stable Patient is on metoprolol we will continue here Leukocytosis Deep underlying appendicitis Continue antibiotics Keep Wise no fever and WBC curve DVT prophylax SCD only discharge planning pending clinical stability. I have reviewed patient about his imaging in detail all question and concerns were addressed
[2024-08-06] MEDS: PIPERACILLIN/TAZOBACTAM 3.375 GM in Sodium Chloride 100ML MINI-BAG PLUS 100 ML IV SCH (03:24)
[2024-08-06] MEDS ORDERED: PIPERACILLIN/TAZOBACTAM IV ONE (04:00)
[2024-08-06] MEDS ORDERED: Sodium Chloride 100ML MINI-BAG PLUS 0 ML IV ONE (04:02)
[2024-08-06] MEDS: Sodium Chloride 0.9% 1000 ML 1,000 ML IV SCH (05:22)
[2024-08-06] MEDS: Zofran 4 MG/2 ML VIAL IV PRN (05:32)
[2024-08-06 06:30] LABS: Absolute Neutrophil Ct (ANC) 7.58 x10^3/uL (1.56-6.13); BASOPHIL % 0.2 % (0.1-1.2); Basophil (Absolute #) 0.02 x10^3/uL (0.01-0.08); Eosinophil % 1.7 % (0.7-5.8); Eosinophil (Absolute #) 0.17 x10^3/uL (0.04-0.36); Hemoglobin 12.6 g/dL (11.2-15.7); IMMATURE GRAN # 0.06 x10^3u/L (0.001-0.031); IMMATURE GRAN % 0.6 % (0.001-0.429); Lymphocyte (Absolute #) 1.61 x10^3/uL (1.18-3.74); Lymphocytes % 15.9 % (19.3-51.7); Mean Cell Volume 84.8 fL (79.4-94.8); Mean Corpuscular Hemoglobin 27.4 pg (25.6-32.2); Mean Corpuscular Hgb Concent. 32.3 g/dL (32.2-35.5); Monocytes % 6.9 % (4.7-12.5); Neutrophil % 74.7 % (34.0-71.1); Platelet Count 203 x10^3/uL (182-369); Red Cell Distribution Width 13.2 % (11.7-14.4); White Blood Count 10.1 x10^3/uL (3.98-10.04)
[2024-08-06 06:51] LABS: ALBUMIN 3.6 g/dL (3.5-5.0); ANION GAP 12.1 MEQ/L (5-15); BILIRUBIN,TOTAL 0.6 mg/dL (0.2-1.3); Calcium 8.9 mg/dL (8.4-10.2); Creatinine 1 0.67 mg/dL (0.52-1.04); EST GLOMERULAR FILTRATION RATE 124.3 ML/MIN; MAGNESIUM 2.1 mg/dL (1.6-2.3); Potassium 3.8 mmol/L (3.5-5.1); Total Protein 6.1 g/dL (6.3-8.2)
[2024-08-06] MEDS ORDERED: TYLENOL 325 MG PO PRN (07:58)
[2024-08-06 07:59] VITALS: RESP 18; TEMP 97.6
[2024-08-06] MEDS: Compazine 10 MG/2 ML IV PRN (08:04)
--- NOTE | 2024-08-06 08:40 | XRAY ---
Indication: Right lower quadrant pain. Multiple contiguous axial images obtained through the abdomen and pelvis using 80 cc Isovue 370 contrast. Comparison: August 01, 2022. Lung bases clear. Heart not enlarged. Noncontrasted stomach and bowel loops appear nonobstructed. Appendix is now prominent up to 8-9 mm with periappendiceal stranding favoring mild appendicitis. No free air. Tiny cul-de-sac fluid presumed physiologic from rupture/leaking cyst. Incidental mild fatty liver and cholecystectomy. Remaining liver, pancreas, spleen, adrenal glands, kidneys, ureters, bladder, uterus, and aorta are unremarkable. No pathologic retroperitoneal lymphadenopathy. Osseous structures intact. Impression: 1. New CT features as detailed favoring non-complicated acute appendicitis. 2. Incidental fatty liver.
[2024-08-06] MEDS ORDERED: Sensorcaine 0.25% 10 ML ONE (09:12)
[2024-08-06] MEDS ORDERED: Sodium Chloride 0.9% 1000 ML 1,000 ML ONE ×2 (09:12→12:12)
[2024-08-06] MEDS: Lopressor 25MG Tab PO SCH (09:29)
[2024-08-06] MEDS: MEFOXIN 2 GM PREMIX** 2 GM/50 ML ML IV SCH (11:16)
[2024-08-06] MEDS: Lactated Ringers 1,000 ML IV SCH (11:16)
[2024-08-06] MEDS ORDERED: Zofran 4 MG/2 ML VIAL ONE (11:45)
[2024-08-06] MEDS ORDERED: ROCURONIUM BROMIDE IV ONE (11:45)
[2024-08-06] MEDS ORDERED: SUBLIMAZE 100 MCG/2 ML ONE ×2 (11:45→12:31)
[2024-08-06] MEDS ORDERED: BRIDION 200MG/2ML IV ONE (11:45)
[2024-08-06] MEDS ORDERED: Decadron 4 MG INJ ONE (11:45)
[2024-08-06] MEDS ORDERED: Xylocaine-Mpf 2% 5 Ml Vial ONE (11:45)
[2024-08-06] MEDS ORDERED: TORAdol 30 mg Injection ONE (11:45)
--- NOTE | 2024-08-06 11:48 | PCM.CONS ---
History of Present Illness - Reason for Consult Chief Complaint: Appendicitis Requesting Provider: SKY STANTON MD Consulting Provider: DONI NEVAREZ MD History of Present Illness: is a 23 year old female. hx per chart review and d/w pt pain 08/04. migrate to [facility] to ed. ct with acute nonperf appy. pain slightly better on pain meds and abx. "- History of Present Illness Time Seen by Provider: 08/05/24 18:49 Physician History: Patient is 23-year-old female without any significant past medical history came to the emergency room with complaining of abdominal pain initially in periumbilical area radiating to the right lower quadrant. Patient c/o nausea and vomiting. Patient has recently changed her control pills and her last menstrual period was 6 weeks ago. Patient denies any other symptoms. (ALEX,MARILY) Allergies/Adverse Reactions: oxaprozin [From Daypro] Allergy (Verified 08/05/24 17:31) Rash escitalopram [From Lexapro] Adverse Reaction (Verified 08/05/24 17:31) Home Medications: Zolpidem Tartrate [Ambien] 6.5 mg PO HS 01/06/20 [History] Ethinyl Estradiol/Drospirenone [Lauryn 28 Tablet] 1 each PO DAILY 08/05/24 [History] Metoprolol Tartrate 25 mg [Lopressor 25MG Tab] 25 mg PO DAILY 08/05/24 [History] Travel Risk - International Travel Have you traveled outside of the country in past 3 weeks: No - Emerging Infectious Disease Are you exhibiting symptoms associated with any current EIDs: Yes Symptoms: Abdominal Pain, Vomitting <ALEX,MARILY - Last Filed: 08/05/24 18:57> - Review of Systems Constitutional: Fever, Chills Eyes: No Symptoms Ears, Nose, & Throat: No Symptoms Respiratory: No Cough, No Dyspnea Cardiac: No Chest Pain, No Edema, No Syncope Abdominal/Gastrointestinal: Abdominal Pain, Nausea, Vomiting, No Diarrhea Genitourinary Symptoms: No Dysuria Musculoskeletal: No Back Pain, No Neck Pain Skin: No Rash Neurological: No Dizziness, No Focal Weakness, No Sensory Changes Psychological: No Symptoms Endocrine: No Symptoms All Other Systems: Reviewed and Negative <ALEX,MARILY - Last Filed: 08/05/24 18:57> - Past Medical History Pertinent Past Medical History: Yes Neurological History: No Pertinent History ENT History: No Pertinent History Cardiac History: Hypertension Respiratory History: No Pertinent History Endocrine Medical History: No Pertinent History Musculoskeletal History: No Pertinent History GI Medical History: Gallbladder Disease History: No Pertinent History Psycho-Social History: Depression Female Reproductive Disorders: No Pertinent History Other Medical History: Insomnia & Constipation - Past Surgical History Past Surgical History: Yes Neuro Surgical History: No Pertinent History Cardiac: No Pertinent History Respiratory: No Pertinent History Gastrointestinal: Cholecystectomy, Other Genitourinary: No Pertinent History Musculoskeletal: No Pertinent History Female Surgical History: No Pertinent History Other Surgical History: colonoscopy - Female History Hx Last Menstrual Period: jun 12 Hx Now: No - Social History Smoking Status: Never smoker Exposure to second hand smoke: No Drug Use: none Patient Lives Alone: No - Social Determinants of Health Will the patient participate in the screening: Yes Do you worry about a steady place to live?: No Do you have any problems with any of the following?: No known problems In the past 12 months,have you had to go without utilities?: No Transportation Issues: No Has anyone in your support network made you feel unsafe?: No Have you or anyone in your house had to go without enough: No <GUANAKO JOHNSONSH - Last Filed: 08/05/24 18:57>" Medications & Allergies Home Medications: Home Medication List Zolpidem Tartrate [Ambien] 6.5 mg PO HS 01/06/20 [History Confirmed 08/06/24] Ethinyl Estradiol/Drospirenone [Lauryn 28 Tablet] 1 each PO DAILY 08/05/24 [History Confirmed 08/06/24] Metoprolol Tartrate 25 mg [Lopressor 25MG Tab] 25 mg PO DAILY 08/05/24 [History Confirmed 08/06/24] Allergies/Adverse Reactions: Allergies Allergy/AdvReac Type Severity Reaction Status Date / Time oxaprozin [From Daypro] Allergy Rash Verified 08/05/24 17:31 escitalopram [From Lexapro] AdvReac Verified 08/05/24 17:31 - Past Medical History Past Medical History: Yes Neurological History: No Pertinent History ENT History: No Pertinent History Cardiac History: Hypertension Respiratory History: No Pertinent History Endocrine Medical History: No Pertinent History Musculoskelatal History: No Pertinent History GI Medical History: Gallbladder Disease History: No Pertinent History Pyscho-Social History: Depression Reproductive Disorders: No Pertinent History Comment: Insomnia & Constipation - Female History Hx Last Menstrual Period: jun 12 Are you now?: No - Past Surgical History Past Surgical History: Yes Neuro Surgical History: No Pertinent History Cardiac History: No Pertinent History Respiratory Surgery: No Pertinent History GI Surgical History: Cholecystectomy, Other Genitourinary Surgical Hx: No Pertinent History Musculskeletal Surgical Hx: No Pertinent History Female Surgical History: No Pertinent History Other Surgical History: colonoscopy Significant Family History: no pertinent family hx - Social History Smoking Status: Never smoker Exposure to second hand smoke: No Alcohol: Occasionally Drug Use: none - Social Determinants of Health Will the patient participate in the screening: Yes Do you worry about a steady place to live?: No Do you have any problems with any of the following?: No known problems In the past 12 months,have you had to go without utilities?: No Have you or anyone in your house had to go without enough: No Transportation Issues: No Has anyone in your support network made you feel unsafe?: No Does the patient want assistance with any of the above?: No - Physical Exam Vital Signs: Vital Signs - 24 hr Temp Pulse Resp BP BP Pulse Ox 08/06/24 09:41 97.6 F 87 18 148/88 98 08/06/24 07:58 97.6 F 87 18 148/88 98 08/06/24 05:47 97.4 F 85 16 130/76 96 08/06/24 02:42 97.5 F 83 17 131/87 96 08/06/24 01:55 97.5 F 83 17 131/87 96 08/06/24 01:54 97.5 F 83 17 131/87 96 08/06/24 01:47 97.5 F 83 17 131/87 96 08/06/24 01:00 75 18 110/65 95 08/06/24 00:30 16 120/73 96 08/06/24 00:12 16 123/81 97 08/05/24 18:57 97 08/05/24 18:35 89 18 131/71 97 08/05/24 18:30 89 16 131/71 96 08/05/24 18:00 152/119 94 L 08/05/24 17:30 98.4 F 88 18 152/107 96 Additional Findings: 08/06/24 11:47 nad no scleral icterus neck symmetric nonlabored resps rrr nd, soft, ttp rlq vluntary guarding no rebound. no edema Results - Labs Lab/Micro Results: Lab Results-Last 24 Hours 08/05/24 08/05/24 08/05/24 Range/Units 17:32 18:30 18:30 WBC 12.8 H (3.98-10.04) x10^3/uL RBC 4.83 (3.93-5.22) x10^6/uL Hgb 13.4 (11.2-15.7) g/dL Hct 40.5 (34.1-44.9) % MCV 83.9 (79.4-94.8) fL MCH 27.7 (25.6-32.2) pg MCHC 33.1 (32.2-35.5) g/dL RDW 13.2 (11.7-14.4) % Plt Count 252 (182-369) x10^3/uL MPV 10.4 (9.4-12.3) fL Gran % 76.6 H (34.0-71.1) % Immature Gran % (Auto) 0.4 (0.001-0.429) % Nucleat RBC Rel Count 0.0 (0.00-0.2) % Eos # (Auto) 0.18 (0.04-0.36) x10^3/uL Immature Gran # (Auto) 0.05 H (0.001-0.031) x10^3u/L Absolute Lymphs (auto) 2.00 (1.18-3.74) x10^3/uL Absolute Monos (auto) 0.74 (0.24-0.86) x10^3/uL Absolute Nucleated RBC 0.00 (0.00-0.012) x10^3u/L Lymphocytes % 15.6 L (19.3-51.7) % Monocytes % 5.8 (4.7-12.5) % Eosinophils % 1.4 (0.7-5.8) % Basophils % 0.2 (0.1-1.2) % Absolute Granulocytes 9.82 H (1.56-6.13) x10^3/uL Basophils # 0.02 (0.01-0.08) x10^3/uL Sodium 137 (135-145) mmol/L Potassium 3.9 (3.5-5.1) mmol/L Chloride 108 H (98-107) mmol/L Carbon Dioxide 20 L (22-30) mmol/L Anion Gap 13.3 (5-15) MEQ/L BUN 8 (7-17) mg/dL Creatinine 0.82 (0.52-1.04) mg/dL Estimated GFR 101.7 ML/MIN Glucose 95 (74-106) mg/dL Calcium 9.2 (8.4-10.2) mg/dL Magnesium (1.6-2.3) mg/dL Total Bilirubin 0.40 (0.2-1.3) mg/dL AST 26 (14-36) U/L ALT 20 (0-35) U/L Alkaline Phosphatase 74 (38-126) U/L Serum Total Protein 7.5 (6.3-8.2) g/dL Albumin 4.4 (3.5-5.0) g/dL Amylase 82 (30-110) U/L Lipase 109 (23-300) U/L Serum HCG, Qual (NEGATIVE) Urine Color Yellow (Yellow) Urine Appearance Clear (Clear) Urine pH 5.5 (4.6-8.0) Ur Specific [place] 1.010 (1.005-1.030) Urine Protein Negative (Negative) Urine Glucose (UA) Negative (Negative) mg/dL Urine Ketones Negative (Negative) Urine Blood Negative (Negative) Urine Nitrite Negative (Negative) Urine Bilirubin Negative (Negative) Urine Urobilinogen 0.2 (0.2) mg/dL Ur Leukocyte Esterase Trace A (Negative) U Hyaline Cast (Auto) NONE SEEN (0-2) /LPF Urine Microscopic RBC 0-2 (0-5) /HPF Urine Microscopic WBC 3-5 (0-5) /HPF Ur Epithelial Cells None Seen (None Seen) /HPF Urine Bacteria Rare A (None Seen) /HPF Urine Culture Reflexed NO (NO) 08/05/24 08/06/24 08/06/24 Range/Units 18:30 06:28 06:28 WBC 10.1 H (3.98-10.04) x10^3/uL RBC 4.60 (3.93-5.22) x10^6/uL Hgb 12.6 (11.2-15.7) g/dL Hct 39.0 (34.1-44.9) % MCV 84.8 (79.4-94.8) fL MCH 27.4 (25.6-32.2) pg MCHC 32.3 (32.2-35.5) g/dL RDW 13.2 (11.7-14.4) % Plt Count 203 (182-369) x10^3/uL MPV 10.0 (9.4-12.3) fL Gran % 74.7 H (34.0-71.1) % Immature Gran % (Auto) 0.6 H (0.001-0.429) % Nucleat RBC Rel Count 0.0 (0.00-0.2) % Eos # (Auto) 0.17 (0.04-0.36) x10^3/uL Immature Gran # (Auto) 0.06 H (0.001-0.031) x10^3u/L Absolute Lymphs (auto) 1.61 (1.18-3.74) x10^3/uL Absolute Monos (auto) 0.70 (0.24-0.86) x10^3/uL Absolute Nucleated RBC 0.00 (0.00-0.012) x10^3u/L Lymphocytes % 15.9 L (19.3-51.7) % Monocytes % 6.9 (4.7-12.5) % Eosinophils % 1.7 (0.7-5.8) % Basophils % 0.2 (0.1-1.2) % Absolute Granulocytes 7.58 H (1.56-6.13) x10^3/uL Basophils # 0.02 (0.01-0.08) x10^3/uL Sodium 138 (135-145) mmol/L Potassium 3.8 (3.5-5.1) mmol/L Chloride 108 H (98-107) mmol/L Carbon Dioxide 21 L (22-30) mmol/L Anion Gap 12.1 (5-15) MEQ/L BUN 5 L (7-17) mg/dL Creatinine 0.67 (0.52-1.04) mg/dL Estimated GFR 124.3 ML/MIN Glucose 85 (74-106) mg/dL Calcium 8.9 (8.4-10.2) mg/dL Magnesium 2.1 (1.6-2.3) mg/dL Total Bilirubin 0.60 (0.2-1.3) mg/dL AST 22 (14-36) U/L ALT 17 (0-35) U/L Alkaline Phosphatase 64 (38-126) U/L Serum Total Protein 6.1 L (6.3-8.2) g/dL Albumin 3.6 (3.5-5.0) g/dL Amylase (30-110) U/L Lipase (23-300) U/L Serum HCG, Qual NEGATIVE (NEGATIVE) Urine Color (Yellow) Urine Appearance (Clear) Urine pH (4.6-8.0) Ur Specific [place] (1.005-1.030) Urine Protein (Negative) Urine Glucose (UA) (Negative) mg/dL Urine Ketones (Negative) Urine Blood (Negative) Urine Nitrite (Negative) Urine Bilirubin (Negative) Urine Urobilinogen (0.2) mg/dL Ur Leukocyte Esterase (Negative) U Hyaline Cast (Auto) (0-2) /LPF Urine Microscopic RBC (0-5) /HPF Urine Microscopic WBC (0-5) /HPF Ur Epithelial Cells (None Seen) /HPF Urine Bacteria (None Seen) /HPF Urine Culture Reflexed (NO) - Radiology Impressions Radiology Exams & Impressions: Radiology Procedures Category Date Time Status ABDOMEN AND PELVIS W CONTRAST [CT] Stat Exams 08/05/24 17:36 Completed Assessment/Plan (1) Appendicitis Current Visit: Yes Status: Acute Assessment & Plan: 23[address] acute [address] scan confirmed uncomplicated appendicitis. -lap appy possible open gen. Code(s): K37 - UNSPECIFIED APPENDICITIS
[2024-08-06] MEDS ORDERED: MORPHINE SULFATE 2 MG INJ ONE (12:52)
[2024-08-06] MEDS: MORPHINE SULFATE 2 MG INJ IV PRN (13:54)
[2024-08-06 14:14] VITALS: O2SAT 98
--- NOTE | 2024-08-06 15:28 | PCM.DS ---
Discharge Summary Date of Admission: 08/06/24 01:40 Date of Discharge: 08/06/24 Admitting Physician: SKY STANTON MD Consults: Consults on Case 08/06/24 01:47 Consult Surgery ROUTINE Primary Care Provider: PETER PICKARD Allergies Allergies oxaprozin [From Daypro] Allergy (Verified 08/05/24 17:31) Rash escitalopram [From Lexapro] Adverse Reaction (Verified 08/05/24 17:31) Hospital Summary - Hospital Course Hospital Course: 23 years old very pleasant lady with no significant past medical history except hypertension initially came to the ER complaining of 1 day history of right lower quadrant abdominal pain with nausea and vomiting. She denied having any fever. She denied having any symptoms as before. In the ER her vital signs were stable. As for his blood workup concern it was remarkable for high white cell count CT was concerning for acute appendicitis. Surgery consulted, non- complicated Lap appendectomy performed 08/06/24. Patient doing well following procedure. Surgery has cleared her for discharge and sent out pain medications. Follow up as Op with surgery team as instructed. Discharge Note New Diagnosis: Appendicitis New Medications: [place] per surgery team Follow Up: PCP/ Surgery Latest Assessment & Plan Acute appendicitis Will continue Zosyn Pain management with morphine 2 mg every 4 hours as per need IV fluids to be continued Surgical evaluation underway hopefully will be taken to or in the morning for appendicectomy Hypertension Blood pressure pretty stable Patient is on metoprolol we will continue here Leukocytosis Deep underlying appendicitis Continue antibiotics Keep Wise no fever and WBC curve I spent 35 minutes [id number] with the patient on the day of discharge performing discharge exam, discussing hospital stay and discharge instructions with patient and caregivers, preparation of discharge records, prescriptions & referral forms and addressing any questions/concerns the patient had as documented above. - Vitals & Intake/Output Vital Signs: Vital Signs Temperature 97.6 F 08/06/24 09:41 Pulse Rate 82 08/06/24 14:00 Respiratory Rate 18 08/06/24 09:41 Blood Pressure 132/82 08/06/24 14:00 O2 Sat by Pulse Oximetry 98 08/06/24 14:00 Intake & Output: Intake & Output 08/04/24 08/05/24 08/06/24 08/07/24 11:59 11:59 11:59 11:59 Intake Total 0 Balance 0 Weight 117 kg - Lab Result Diagrams: 08/06/24 06:28 08/06/24 06:28 Lab Results-Last 24 Hrs: Lab Results-Last 24 Hours 08/05/24 08/05/24 08/05/24 Range/Units 17:32 18:30 18:30 WBC 12.8 H (3.98-10.04) x10^3/uL RBC 4.83 (3.93-5.22) x10^6/uL Hgb 13.4 (11.2-15.7) g/dL Hct 40.5 (34.1-44.9) % MCV 83.9 (79.4-94.8) fL MCH 27.7 (25.6-32.2) pg MCHC 33.1 (32.2-35.5) g/dL RDW 13.2 (11.7-14.4) % Plt Count 252 (182-369) x10^3/uL MPV 10.4 (9.4-12.3) fL Gran % 76.6 H (34.0-71.1) % Immature Gran % (Auto) 0.4 (0.001-0.429) % Nucleat RBC Rel Count 0.0 (0.00-0.2) % Eos # (Auto) 0.18 (0.04-0.36) x10^3/uL Immature Gran # (Auto) 0.05 H (0.001-0.031) x10^3u/L Absolute Lymphs (auto) 2.00 (1.18-3.74) x10^3/uL Absolute Monos (auto) 0.74 (0.24-0.86) x10^3/uL Absolute Nucleated RBC 0.00 (0.00-0.012) x10^3u/L Lymphocytes % 15.6 L (19.3-51.7) % Monocytes % 5.8 (4.7-12.5) % Eosinophils % 1.4 (0.7-5.8) % Basophils % 0.2 (0.1-1.2) % Absolute Granulocytes 9.82 H (1.56-6.13) x10^3/uL Basophils # 0.02 (0.01-0.08) x10^3/uL Sodium 137 (135-145) mmol/L Potassium 3.9 (3.5-5.1) mmol/L Chloride 108 H (98-107) mmol/L Carbon Dioxide 20 L (22-30) mmol/L Anion Gap 13.3 (5-15) MEQ/L BUN 8 (7-17) mg/dL Creatinine 0.82 (0.52-1.04) mg/dL Estimated GFR 101.7 ML/MIN Glucose 95 (74-106) mg/dL Calcium 9.2 (8.4-10.2) mg/dL Magnesium (1.6-2.3) mg/dL Total Bilirubin 0.40 (0.2-1.3) mg/dL AST 26 (14-36) U/L ALT 20 (0-35) U/L Alkaline Phosphatase 74 (38-126) U/L Serum Total Protein 7.5 (6.3-8.2) g/dL Albumin 4.4 (3.5-5.0) g/dL Amylase 82 (30-110) U/L Lipase 109 (23-300) U/L Serum HCG, Qual (NEGATIVE) Urine Color Yellow (Yellow) Urine Appearance Clear (Clear) Urine pH 5.5 (4.6-8.0) Ur Specific [place] 1.010 (1.005-1.030) Urine Protein Negative (Negative) Urine Glucose (UA) Negative (Negative) mg/dL Urine Ketones Negative (Negative) Urine Blood Negative (Negative) Urine Nitrite Negative (Negative) Urine Bilirubin Negative (Negative) Urine Urobilinogen 0.2 (0.2) mg/dL Ur Leukocyte Esterase Trace A (Negative) U Hyaline Cast (Auto) NONE SEEN (0-2) /LPF Urine Microscopic RBC 0-2 (0-5) /HPF Urine Microscopic WBC 3-5 (0-5) /HPF Ur Epithelial Cells None Seen (None Seen) /HPF Urine Bacteria Rare A (None Seen) /HPF Urine Culture Reflexed NO (NO) 08/05/24 08/06/24 08/06/24 Range/Units 18:30 06:28 06:28 WBC 10.1 H (3.98-10.04) x10^3/uL RBC 4.60 (3.93-5.22) x10^6/uL Hgb 12.6 (11.2-15.7) g/dL Hct 39.0 (34.1-44.9) % MCV 84.8 (79.4-94.8) fL MCH 27.4 (25.6-32.2) pg MCHC 32.3 (32.2-35.5) g/dL RDW 13.2 (11.7-14.4) % Plt Count 203 (182-369) x10^3/uL MPV 10.0 (9.4-12.3) fL Gran % 74.7 H (34.0-71.1) % Immature Gran % (Auto) 0.6 H (0.001-0.429) % Nucleat RBC Rel Count 0.0 (0.00-0.2) % Eos # (Auto) 0.17 (0.04-0.36) x10^3/uL Immature Gran # (Auto) 0.06 H (0.001-0.031) x10^3u/L Absolute Lymphs (auto) 1.61 (1.18-3.74) x10^3/uL Absolute Monos (auto) 0.70 (0.24-0.86) x10^3/uL Absolute Nucleated RBC 0.00 (0.00-0.012) x10^3u/L Lymphocytes % 15.9 L (19.3-51.7) % Monocytes % 6.9 (4.7-12.5) % Eosinophils % 1.7 (0.7-5.8) % Basophils % 0.2 (0.1-1.2) % Absolute Granulocytes 7.58 H (1.56-6.13) x10^3/uL Basophils # 0.02 (0.01-0.08) x10^3/uL Sodium 138 (135-145) mmol/L Potassium 3.8 (3.5-5.1) mmol/L Chloride 108 H (98-107) mmol/L Carbon Dioxide 21 L (22-30) mmol/L Anion Gap 12.1 (5-15) MEQ/L BUN 5 L (7-17) mg/dL Creatinine 0.67 (0.52-1.04) mg/dL Estimated GFR 124.3 ML/MIN Glucose 85 (74-106) mg/dL Calcium 8.9 (8.4-10.2) mg/dL Magnesium 2.1 (1.6-2.3) mg/dL Total Bilirubin 0.60 (0.2-1.3) mg/dL AST 22 (14-36) U/L ALT 17 (0-35) U/L Alkaline Phosphatase 64 (38-126) U/L Serum Total Protein 6.1 L (6.3-8.2) g/dL Albumin 3.6 (3.5-5.0) g/dL Amylase (30-110) U/L Lipase (23-300) U/L Serum HCG, Qual NEGATIVE (NEGATIVE) Urine Color (Yellow) Urine Appearance (Clear) Urine pH (4.6-8.0) Ur Specific [place] (1.005-1.030) Urine Protein (Negative) Urine Glucose (UA) (Negative) mg/dL Urine Ketones (Negative) Urine Blood (Negative) Urine Nitrite (Negative) Urine Bilirubin (Negative) Urine Urobilinogen (0.2) mg/dL Ur Leukocyte Esterase (Negative) U Hyaline Cast (Auto) (0-2) /LPF Urine Microscopic RBC (0-5) /HPF Urine Microscopic WBC (0-5) /HPF Ur Epithelial Cells (None Seen) /HPF Urine Bacteria (None Seen) /HPF Urine Culture Reflexed (NO) - Radiology Exams Ordered Rad Exams-Entire Visit: Radiology Procedures Category Date Time Status ABDOMEN AND PELVIS W CONTRAST [CT] Stat Exams 08/05/24 17:36 Completed Discharge Exam General Appearance: no apparent distress Neurologic Exam: alert, oriented x 3, cooperative Eye Exam: PERRL Ears, Nose, Throat Exam: normal ENT inspection Neck Exam: normal inspection Respiratory Exam: normal breath sounds, lungs clear Cardiovascular Exam: regular rate/rhythm, normal heart sounds Gastrointestinal/Abdomen Exam: tenderness, other (surgical incision covered in dressing) Pelvic Exam: deferred Rectal Exam: deferred Back Exam: normal inspection Extremity Exam: normal inspection Skin Exam: pale Final Diagnosis/Problem List - Final Discharge Diagnosis/Problem (1) Appendicitis Current Visit: Yes Status: Resolved Code(s): K37 - UNSPECIFIED APPENDICITIS (2) Hypertension Current Visit: No Status: Chronic Code(s): I10 - ESSENTIAL (PRIMARY) HYPERTENSION (3) Leukocytosis Current Visit: No Status: Resolved Code(s): D72.829 - ELEVATED WHITE BLOOD CELL COUNT, UNSPECIFIED - Discharge Discharge Date: 08/06/24 Disposition: Home, Self-Care Condition: Stable Prescriptions: New Hydrocodone/Acetaminophen [Hydrocodone-Acetamin 5-325 mg] 1 tab PO Q6HPRN PRN 7 Days #20 tablet MDD 4 PRN Reason: Pain Continue Zolpidem Tartrate [Ambien] 6.5 mg PO HS Metoprolol Tartrate 25 mg [Lopressor 25MG Tab] 25 mg PO DAILY Ethinyl Estradiol/Drospirenone [Lauryn 28 Tablet] 1 each PO DAILY Follow up with: DONI NEVAREZ MD [ACTIVE STAFF] - 2 weeks () PETER PICKARD NP [Primary Care Provider] -
[2024-08-06 15:33] VITALS: BP 134/72; PULSE 93
[2024-08-06] MEDS: NORCO 5/325 MG PO PRN (15:48)
[2024-08-06] MEDS ORDERED: Ambien 5 MG Tablet PO SCH ×2 (22:00)
--- NOTE | 2024-08-07 09:01 | OP ---
SURGERY DATE/TIME: 08/06/2024 [id number] PREOPERATIVE DIAGNOSIS: Acute appendicitis. POSTOPERATIVE DIAGNOSIS: Acute appendicitis, nonperforated. PROCEDURE: Laparoscopic appendectomy. SURGEON: Chema Mendoza MD. ANESTHESIA: General. ESTIMATED BLOOD LOSS: Minimal. PATIENT CONDITION: Stable. COMPLICATIONS: None. SPECIMENS: Appendix. INDICATIONS: The patient presents with a 1-day history of abdominal pain migrating to right lower quadrant. Localized tenderness on exam. CT scan showing an inflamed appendix, nonperforated. I discussed with patient risk of infection, bleeding, injury to nearby structure, hernia, negative examination. She would like to proceed with surgery. FINDINGS: Nonperforated acute appendicitis. DESCRIPTION OF PROCEDURE AND FINDINGS: Patient brought to the operating room. General anesthesia induced. Routinely positioned, prepped and draped. Time-out performed. Received a preoperative antibiotic. Veress needle inserted in the left upper quadrant. Pneumoperitoneum was established. A 5 mm Optiview trocar placed supraumbilical. There were some omental adhesions inferior to that. A 12 mm trocar placed left lower quadrant. A 5 mm suprapubic port placed and had Marcaine injected at all the incision sites. The omental adhesions were taken down with the LigaSure. Normal anatomy restored, then positioned, omentum retracted. There was obvious nonperforated appendicitis. The mesoappendix was taken with LigaSure. The base of the appendix was healthy, taken with a white load SHADI stapler, placed in a bag, removed through the 12 trocar site. There was good hemostasis. Staple line satisfactory. The 12 trocar closed with 0 Vicryl interrupted suture passer. The suprapubic port removed. Umbilical used for desufflation, then removed. Skin was closed with 4-0 Vicryl suture. Steri-Strips and sterile dressing were applied. All counts were correct. Patient tolerated the procedure well. Plan is for extubation.
== END 2024-08-06 18:15 | disposition home or self-care (01) ==
LOC: ED 16:57 → MED SURG 08-06 01:40 → UNDOADMOB 08-06 01:40 → UNDODISOB 08-06 18:15
PROVIDERS: ADMIT Internal Medicine; ATTEND Internal Medicine
DX: K37 Unspecified appendicitis (principal); I10 Essential (primary) hypertension; D72.829 Elevated white blood cell count, unspecified
CPT/HCPCS: 36415; 74177; 80053; 81001; 82150; 83690; 83735; 84703; 85025; 96374; 96375; 99283; G0378; J0694; J1100; J1885; J2270; J2405; J2543; J2704; J3010; A9270-GY

== ENCOUNTER 2024-10-19 08:26 | Emergency (ER) | payer OTHER ==
--- NOTE | 2024-10-19 08:35 | ERPHSYRPT ---
- History of Present Illness Time Seen by Provider: 10/19/24 08:35 Source: patient, family Exam Limitations: no limitations Physician History: This is a 23-year-old white female patient of nurse practitioner Maggie who arrives by private vehicle because of chronic symptoms of cough, headache, intermittent dizziness and intermittent nausea. She has received antibiotic therapy and seen by nurse practitioner Maggie on more than 1 occasion for the same symptoms. She again has symptoms today and contacted the office of nurse practitioner Maggie who told her to come to the emergency department for a workup. Patient has a history of hypertension and anxiety. Patient states that she does not feel as though she is under more stress than typical for her. She denies chest pain. She denies shortness of breath. Timing/Duration: week(s) (Present over the last several weeks), worse Severity: mild Associated Symptoms: nausea, cough, other (In the last several weeks patient vomited once. She has gagged several times in the last several weeks and has intermittent nausea), No vomiting, No shortness of breath, No chest pain Allergies/Adverse Reactions: oxaprozin [From Daypro] Allergy (Verified 08/05/24 17:31) Rash escitalopram [From Lexapro] Adverse Reaction (Verified 08/05/24 17:31) Home Medications: Zolpidem Tartrate [Ambien] 6.5 mg PO HS 01/06/20 [History] Metoprolol Tartrate 25 mg [Lopressor 25MG Tab] 25 mg PO DAILY 08/05/24 [History] Alprazolam [Xanax] 0.5 mg PO DAILY PRN 10/19/24 [History] Hx Tetanus, Diphtheria Vaccination/Date Given: No Hx Influenza Vaccination/Date Given: Yes Hx Pneumococcal Vaccination/Date Given: No Travel Risk - International Travel Have you traveled outside of the country in past 3 weeks: No - Emerging Infectious Disease Are you exhibiting symptoms associated with any current EIDs: Yes Symptoms: Abdominal Pain, Vomitting Comment: R/T APPENDICITIS - Review of Systems Constitutional: Other (She states she feels off) Eyes: No Symptoms Ears, Nose, & Throat: No Symptoms Respiratory: Cough Cardiac: No Symptoms Abdominal/Gastrointestinal: Nausea, Vomiting, No Abdominal Pain, No Diarrhea, No Constipation Genitourinary Symptoms: No Symptoms Musculoskeletal: No Symptoms Skin: No Symptoms Neurological: Dizziness, Headache Psychological: No Symptoms Endocrine: No Symptoms Hematologic/Lymphatic: No Symptoms Immunological/Allergic: No Symptoms All Other Systems: Reviewed and Negative - Past Medical History Pertinent Past Medical History: Yes Neurological History: No Pertinent History ENT History: No Pertinent History Cardiac History: Hypertension Respiratory History: No Pertinent History Endocrine Medical History: No Pertinent History Musculoskeletal History: No Pertinent History GI Medical History: Gallbladder Disease History: No Pertinent History Psycho-Social History: Depression Female Reproductive Disorders: No Pertinent History Other Medical History: Insomnia & Constipation - Past Surgical History Past Surgical History: Yes Neuro Surgical History: No Pertinent History Cardiac: No Pertinent History Respiratory: No Pertinent History Gastrointestinal: Cholecystectomy, Other Genitourinary: No Pertinent History Musculoskeletal: No Pertinent History Female Surgical History: No Pertinent History Other Surgical History: colonoscopy Significant Family History: no pertinent family hx - Female History Hx Last Menstrual Period: jun 12 - Social History Smoking Status: Never smoker Exposure to second hand smoke: No Drug Use: none - Social Determinants of Health Will the patient participate in the screening: Yes Do you worry about a steady place to live?: No In the past 12 months,have you had to go without utilities?: No Transportation Issues: No Has anyone in your support network made you feel unsafe?: No Have you or anyone in your house had to go w/o enough food: No - Nursing Vital Signs Nursing Vital Signs: Initial Vital Signs Temperature 98.4 F 10/19/24 08:34 Pulse Rate 97 H 10/19/24 08:34 Respiratory Rate 22 10/19/24 08:34 Blood Pressure 156/104 10/19/24 08:34 O2 Sat by Pulse Oximetry 100 10/19/24 08:34 Pain Scale Pain Intensity 0 - Physical Exam General Appearance: no apparent distress, alert, anxiety, obese Eye Exam: PERRL/EOMI, eyes nml inspection Ears, Nose, Throat Exam: normal ENT inspection, moist mucous membranes Neck Exam: normal inspection, non-tender, supple, full range of motion Respiratory Exam: lungs clear, airway intact, No normal breath sounds, No chest tenderness, No respiratory distress Cardiovascular Exam: regular rate/rhythm, normal heart sounds, normal peripheral pulses Gastrointestinal/Abdomen Exam: soft, normal bowel sounds, No tenderness Pelvic Exam: not done Rectal Exam: not done Back Exam: normal inspection, normal range of motion, No CVA tenderness, No vertebral tenderness Extremity Exam: normal inspection, normal range of motion, pelvis stable Neurologic Exam: alert, oriented x 3, cooperative, latexer II-XII nml as tested, nml cerebellar function, nml station & gait, sensation nml Skin Exam: normal color, warm, dry Lymphatic Exam: No adenopathy SpO2 Interpretation: normal O2 Delivery: Room Air - Course Nursing assessment & vital signs reviewed: Yes EKG Interpreted by Me: RATE (91), Sinus Rhythm, NORMAL AXIS, NORMAL INTERVALS, NORMAL QRS, NORMAL ST-T, Other (No acute ischemic changes. QTc is 414) Ordered Tests: Active Orders 24 hr Category Date Time Status EKG-ER Only STAT Care 10/19/24 08:57 Active IV Insertion STAT Care 10/19/24 08:57 Active AMYLASE Stat Lab 10/19/24 09:23 Completed CBC W DIFF Stat Lab 10/19/24 09:23 Completed CMP Stat Lab 10/19/24 09:23 Completed D-DIMER QUANTITATIVE Stat Lab 10/19/24 08:57 Completed HCG QUALITATIVE, SERUM Stat Lab 10/19/24 09:23 Completed LIPASE Stat Lab 10/19/24 09:23 Completed MONO SCREEN Stat Lab 10/19/24 09:23 Completed TROPONIN Q4H Lab 10/19/24 09:23 Completed TROPONIN Q4H Lab 10/19/24 14:00 Ordered TROPONIN Q4H Lab 10/19/24 18:00 Ordered TROPONIN Q4H Lab 10/19/24 22:00 Ordered TSH [TSH, 3RD Generation] Stat Lab 10/19/24 08:57 Received UA W/RFX UR CULTURE Stat Lab 10/19/24 08:58 Completed Medication Summary Discontinued Medications Generic Name Dose Route Start Last Admin Trade Name [place]q PRN Reason Stop Dose Admin Ondansetron HCl 4 mg 10/19/24 08:57 10/19/24 09:39 Ondansetron Hcl 4 Mg/2 Ml Vial IV 10/19/24 08:58 4 mg STAT ONE Administration Ondansetron HCl Confirm 10/19/24 09:17 Ondansetron Hcl 4 Mg/2 Ml Vial Administered 10/19/24 09:18 Dose 4 mg .ROUTE .STK-MED ONE Pantoprazole Sodium 40 mg 10/19/24 08:57 10/19/24 09:39 Pantoprazole 40 Mg Vial IV 10/19/24 08:58 40 mg STAT ONE Administration Pantoprazole Sodium Confirm 10/19/24 09:18 Pantoprazole 40 Mg Vial Administered 10/19/24 09:19 Dose 40 mg IV .[facility] ONE Lab/Rad Data: Laboratory Result Diagrams 10/19/24 09:23 10/19/24 09:23 Laboratory Results 10/19/24 10/19/24 10/19/24 Range/Units 09:23 09:23 09:23 WBC (3.98-10.04) x10^3/uL RBC (3.93-5.22) x10^6/uL Hgb (11.2-15.7) g/dL Hct (34.1-44.9) % MCV (79.4-94.8) fL MCH (25.6-32.2) pg MCHC (32.2-35.5) g/dL RDW (11.7-14.4) % Plt Count (182-369) x10^3/uL MPV (9.4-12.3) fL Gran % (34.0-71.1) % Immature Gran % (Auto) (0.001-0.429) % Nucleat RBC Rel Count (0.00-0.2) % Eos # (Auto) (0.04-0.36) x10^3/uL Immature Gran # (Auto) (0.001-0.031) x10^3u/L Absolute Lymphs (auto) (1.18-3.74) x10^3/uL Absolute Monos (auto) (0.24-0.86) x10^3/uL Absolute Nucleated RBC (0.00-0.012) x10^3u/L Lymphocytes % (19.3-51.7) % Monocytes % (4.7-12.5) % Eosinophils % (0.7-5.8) % Basophils % (0.1-1.2) % Absolute Granulocytes (1.56-6.13) x10^3/uL Basophils # (0.01-0.08) x10^3/uL D-Dimer (0.0-0.50) mg/L Sodium (135-145) mmol/L Potassium (3.5-5.1) mmol/L Chloride (98-107) mmol/L Carbon Dioxide (22-30) mmol/L Anion Gap (5-15) MEQ/L BUN (7-17) mg/dL Creatinine (0.52-1.04) mg/dL Estimated GFR ML/MIN Glucose (74-106) mg/dL Calcium (8.4-10.2) mg/dL Total Bilirubin (0.2-1.3) mg/dL AST (14-36) U/L ALT (0-35) U/L Alkaline Phosphatase (38-126) U/L Troponin I < 0.012 (0.000-0.033) ng/mL Serum Total Protein (6.3-8.2) g/dL Albumin (3.5-5.0) g/dL Amylase (30-110) U/L Lipase (23-300) U/L Free T4 (0.78-2.19) ng/dL Serum HCG, Qual NEGATIVE (NEGATIVE) Urine Color (Yellow) Urine Appearance (Clear) Urine pH (4.6-8.0) Ur Specific [place] (1.005-1.030) Urine Protein (Negative) Urine Glucose (UA) (Negative) mg/dL Urine Ketones (Negative) Urine Blood (Negative) Urine Nitrite (Negative) Urine Bilirubin (Negative) Urine Urobilinogen (0.2) mg/dL Ur Leukocyte Esterase (Negative) U Hyaline Cast (Auto) (0-2) /LPF Urine Microscopic RBC (0-5) /HPF Urine Microscopic WBC (0-5) /HPF Ur Epithelial Cells (None Seen) /HPF Urine Bacteria (None Seen) /HPF Urine Culture Reflexed (NO) Monoscreen NEGATIVE (NEGATIVE) Influenza Type A Ag NEGATIVE (NEGATIVE) Influenza Type B Ag NEGATIVE (NEGATIVE) RSV (PCR) NEGATIVE (NEGATIVE) SARS-CoV-2 (PCR) NEGATIVE (NEGATIVE) Group A Strep Antibody (NEGATIVE) 10/19/24 10/19/24 10/19/24 Range/Units 09:23 09:23 09:23 WBC 9.6 (3.98-10.04) x10^3/uL RBC 5.09 (3.93-5.22) x10^6/uL Hgb 14.3 (11.2-15.7) g/dL Hct 43.8 (34.1-44.9) % MCV 86.1 (79.4-94.8) fL MCH 28.1 (25.6-32.2) pg MCHC 32.6 (32.2-35.5) g/dL RDW 12.5 (11.7-14.4) % Plt Count 220 (182-369) x10^3/uL MPV 10.4 (9.4-12.3) fL Gran % 73.5 H (34.0-71.1) % Immature Gran % (Auto) 0.4 (0.001-0.429) % Nucleat RBC Rel Count 0.0 (0.00-0.2) % Eos # (Auto) 0.38 H (0.04-0.36) x10^3/uL Immature Gran # (Auto) 0.04 H (0.001-0.031) x10^3u/L Absolute Lymphs (auto) 1.44 (1.18-3.74) x10^3/uL Absolute Monos (auto) 0.65 (0.24-0.86) x10^3/uL Absolute Nucleated RBC 0.00 (0.00-0.012) x10^3u/L Lymphocytes % 15.0 L (19.3-51.7) % Monocytes % 6.8 (4.7-12.5) % Eosinophils % 4.0 (0.7-5.8) % Basophils % 0.3 (0.1-1.2) % Absolute Granulocytes 7.08 H (1.56-6.13) x10^3/uL Basophils # 0.03 (0.01-0.08) x10^3/uL D-Dimer (0.0-0.50) mg/L Sodium 142 (135-145) mmol/L Potassium 3.9 (3.5-5.1) mmol/L Chloride 105 (98-107) mmol/L Carbon Dioxide 24 (22-30) mmol/L Anion Gap 18.1 H (5-15) MEQ/L BUN 6 L (7-17) mg/dL Creatinine 0.67 (0.52-1.04) mg/dL Estimated GFR 124.3 ML/MIN Glucose 93 (74-106) mg/dL Calcium 9.9 (8.4-10.2) mg/dL Total Bilirubin 0.40 (0.2-1.3) mg/dL AST 33 (14-36) U/L ALT 29 (0-35) U/L Alkaline Phosphatase 83 (38-126) U/L Troponin I (0.000-0.033) ng/mL Serum Total Protein 8.1 (6.3-8.2) g/dL Albumin 4.9 (3.5-5.0) g/dL Amylase 81 (30-110) U/L Lipase 120 (23-300) U/L Free T4 (0.78-2.19) ng/dL Serum HCG, Qual (NEGATIVE) Urine Color (Yellow) Urine Appearance (Clear) Urine pH (4.6-8.0) Ur Specific [place] (1.005-1.030) Urine Protein (Negative) Urine Glucose (UA) (Negative) mg/dL Urine Ketones (Negative) Urine Blood (Negative) Urine Nitrite (Negative) Urine Bilirubin (Negative) Urine Urobilinogen (0.2) mg/dL Ur Leukocyte Esterase (Negative) U Hyaline Cast (Auto) (0-2) /LPF Urine Microscopic RBC (0-5) /HPF Urine Microscopic WBC (0-5) /HPF Ur Epithelial Cells (None Seen) /HPF Urine Bacteria (None Seen) /HPF Urine Culture Reflexed (NO) Monoscreen (NEGATIVE) Influenza Type A Ag (NEGATIVE) Influenza Type B Ag (NEGATIVE) RSV (PCR) (NEGATIVE) SARS-CoV-2 (PCR) (NEGATIVE) Group A Strep Antibody NOT DETECTED (NEGATIVE) 10/19/24 10/19/24 10/19/24 Range/Units 08:58 08:57 08:57 WBC (3.98-10.04) x10^3/uL RBC (3.93-5.22) x10^6/uL Hgb (11.2-15.7) g/dL Hct (34.1-44.9) % MCV (79.4-94.8) fL MCH (25.6-32.2) pg MCHC (32.2-35.5) g/dL RDW (11.7-14.4) % Plt Count (182-369) x10^3/uL MPV (9.4-12.3) fL Gran % (34.0-71.1) % Immature Gran % (Auto) (0.001-0.429) % Nucleat RBC Rel Count (0.00-0.2) % Eos # (Auto) (0.04-0.36) x10^3/uL Immature Gran # (Auto) (0.001-0.031) x10^3u/L Absolute Lymphs (auto) (1.18-3.74) x10^3/uL Absolute Monos (auto) (0.24-0.86) x10^3/uL Absolute Nucleated RBC (0.00-0.012) x10^3u/L Lymphocytes % (19.3-51.7) % Monocytes % (4.7-12.5) % Eosinophils % (0.7-5.8) % Basophils % (0.1-1.2) % Absolute Granulocytes (1.56-6.13) x10^3/uL Basophils # (0.01-0.08) x10^3/uL D-Dimer 0.30 (0.0-0.50) mg/L Sodium (135-145) mmol/L Potassium (3.5-5.1) mmol/L Chloride (98-107) mmol/L Carbon Dioxide (22-30) mmol/L Anion Gap (5-15) MEQ/L BUN (7-17) mg/dL Creatinine (0.52-1.04) mg/dL Estimated GFR ML/MIN Glucose (74-106) mg/dL Calcium (8.4-10.2) mg/dL Total Bilirubin (0.2-1.3) mg/dL AST (14-36) U/L ALT (0-35) U/L Alkaline Phosphatase (38-126) U/L Troponin I (0.000-0.033) ng/mL Serum Total Protein (6.3-8.2) g/dL Albumin (3.5-5.0) g/dL Amylase (30-110) U/L Lipase (23-300) U/L Free T4 1.51 (0.78-2.19) ng/dL Serum HCG, Qual (NEGATIVE) Urine Color Yellow (Yellow) Urine Appearance Clear (Clear) Urine pH 6.0 (4.6-8.0) Ur Specific [place] <=1.005 (1.005-1.030) Urine Protein Negative (Negative) Urine Glucose (UA) Negative (Negative) mg/dL Urine Ketones Negative (Negative) Urine Blood Negative (Negative) Urine Nitrite Negative (Negative) Urine Bilirubin Negative (Negative) Urine Urobilinogen 0.2 (0.2) mg/dL Ur Leukocyte Esterase Small A (Negative) U Hyaline Cast (Auto) NONE SEEN (0-2) /LPF Urine Microscopic RBC 0-2 (0-5) /HPF Urine Microscopic WBC 6-10 A (0-5) /HPF Ur Epithelial Cells Rare (None Seen) /HPF Urine Bacteria Few A (None Seen) /HPF Urine Culture Reflexed NO (NO) Monoscreen (NEGATIVE) Influenza Type A Ag (NEGATIVE) Influenza Type B Ag (NEGATIVE) RSV (PCR) (NEGATIVE) SARS-CoV-2 (PCR) (NEGATIVE) Group A Strep Antibody (NEGATIVE) - Progress Progress: unchanged, re-examined Progress Note: 10/19/24 09:54 My medical decision making in the assignment of moderate complexity to this patient's medical issue today is based on review of the patient's past medical history, review of the patient's medication list, review of patient drug allergy list, history present illness and physical findings on examination. The workup in this patient includes IV line placement, CBC, CMP, amylase, lipase, urinalysis, test, viral swabs, monotest, group A strep test, chest x- ray, twelve-lead EKG, D-dimer level, troponin level, magnesium level, free T4 and TSH level. Differential diagnosis includes stress about health, electrolyte abnormalities, arrhythmia, thyroid abnormalities, myocardial infarction, arrhythmia 10/19/24 10:45 I interpreted the lab results. no acute, emergent medical issues based on the lab results Counseled pt/family regarding: lab results, diagnosis, need for follow-up, rad results Medical Desision Making - Independent Historian Additional History obtained from: Family - Diagnostic Testing Diagnostic test were ordered, analyzed, and reviewed by me: Yes - Risk of complications Low Risk: Low risk of morbidity from additional dx testing or treatment - Departure Departure Disposition: Home Clinical Impression: Dizziness, Headache, Nausea Condition: Stable Critical Care Time: No Referrals: PETER PICKARD, INVENTORY CONTROL ASSISTANT [Primary Care Provider] - Follow up/PCP as directed Additional Instructions: Drink plenty of fluids. call your primary care physician today to make arrangements for further management
[2024-10-19 08:40] VITALS: TEMP 98.4
[2024-10-19] MEDS ORDERED: Zofran 4 MG/2 ML VIAL ONE (09:17)
[2024-10-19] MEDS ORDERED: PROTONIX 40 MG IV IV ONE (09:18)
[2024-10-19 09:24] LABS: Absolute Neutrophil Ct (ANC) 7.08 x10^3/uL (1.56-6.13); BASOPHIL % 0.3 % (0.1-1.2); Basophil (Absolute #) 0.03 x10^3/uL (0.01-0.08); Eosinophil (Absolute #) 0.38 x10^3/uL (0.04-0.36); Hematocrit 43.8 % (34.1-44.9); Hemoglobin 14.3 g/dL (11.2-15.7); IMMATURE GRAN # 0.04 x10^3u/L (0.001-0.031); IMMATURE GRAN % 0.4 % (0.001-0.429); Lymphocyte (Absolute #) 1.44 x10^3/uL (1.18-3.74); Mean Cell Volume 86.1 fL (79.4-94.8); Mean Corpuscular Hemoglobin 28.1 pg (25.6-32.2); Mean Corpuscular Hgb Concent. 32.6 g/dL (32.2-35.5); Mean Platelet Volume 10.4 fL (9.4-12.3); Monocyte (Absolute #) 0.65 x10^3/uL (0.24-0.86); Monocytes % 6.8 % (4.7-12.5); Neutrophil % 73.5 % (34.0-71.1); Platelet Count 220 x10^3/uL (182-369); Red Blood Count 5.09 x10^6/uL (3.93-5.22); Red Cell Distribution Width 12.5 % (11.7-14.4); White Blood Count 9.6 x10^3/uL (3.98-10.04)
[2024-10-19 09:33] LABS: Appearance Clear (Clear); Bacteria Few /HPF (None Seen); Bilirubin Negative (Negative); Blood Negative (Negative); Epithelial Cells Rare /HPF (None Seen); Glucose, Urine Negative (Negative); Hyaline Casts NONE SEEN /LPF (0-2); Ketones Negative (Negative); Leukocyte Esterase Small (Negative); Nitrite Negative (Negative); Protein,Urine Dip Negative (Negative); RBC 0-2 /HPF (0-5); Specific Gravity <=1.005 (1.005-1.030); Urobilinogen 0.2 mg/dL (0.2)
[2024-10-19 09:36] LABS: HCG SERUM TEST NEGATIVE (NEGATIVE)
[2024-10-19 09:37] LABS: ALBUMIN 4.9 g/dL (3.5-5.0); ANION GAP 18.1 MEQ/L (5-15); BILIRUBIN,TOTAL 0.4 mg/dL (0.2-1.3); Calcium 9.9 mg/dL (8.4-10.2); Creatinine 1 0.67 mg/dL (0.52-1.04); EST GLOMERULAR FILTRATION RATE 124.3 ML/MIN; Potassium 3.9 mmol/L (3.5-5.1); Total Protein 8.1 g/dL (6.3-8.2)
[2024-10-19] MEDS: PROTONIX 40 MG IV IV ONE (09:39)
[2024-10-19] MEDS: Zofran 4 MG/2 ML VIAL IV ONE (09:39)
[2024-10-19 10:02] LABS: INFLUENZA A NEGATIVE (NEGATIVE); INFLUENZA B NEGATIVE (NEGATIVE); RESPIRATORY SYNCTIAL VIRUS NEGATIVE (NEGATIVE); SARS-CoV-2 Xpert Express NEGATIVE (NEGATIVE)
[2024-10-19 10:03] VITALS: RESP 15
[2024-10-19] MEDS ORDERED: TYLENOL 325 MG ONE (11:29)
[2024-10-19] MEDS: TYLENOL 325 MG PO ONE (11:29)
[2024-10-19 11:43] VITALS: BP 130/89; PULSE 109; O2SAT 99
== END 2024-10-19 11:53 | disposition home or self-care (01) ==
LOC: ED 08:26
DX: R42 Dizziness and giddiness (principal); R51.9 Headache, unspecified; R11.0 Nausea; R05.3 Chronic cough; I10 Essential (primary) hypertension; Z79.899 Other long term (current) drug therapy
CPT/HCPCS: 0241U; 36415; 80053; 81001; 82150; 83690; 84439; 84443; 84484; 84703; 85025; 85379; 86308; 87651; 93005; 96374; 96375; 99284; J2405; A9270-GY

== ENCOUNTER 2025-07-13 09:52 | Emergency (ER) ==
[2025-07-13 10:03] VITALS: TEMP 98.1
[2025-07-13 10:24] LABS: BASOPHIL % 0.3 % (0.1-1.2); Basophil (Absolute #) 0.03 x10^3/uL (0.01-0.08); Eosinophil (Absolute #) 0.58 x10^3/uL (0.04-0.36); Hematocrit 43.4 % (34.1-44.9); Hemoglobin 13.6 g/dL (11.2-15.7); IMMATURE GRAN # 0.04 x10^3u/L (0.001-0.031); IMMATURE GRAN % 0.5 % (0.001-0.429); Lymphocyte (Absolute #) 2.41 x10^3/uL (1.18-3.74); Mean Corpuscular Hemoglobin 26.9 pg (25.6-32.2); Mean Corpuscular Hgb Concent. 31.3 g/dL (32.2-35.5); Monocyte (Absolute #) 0.57 x10^3/uL (0.24-0.86); NUCLEATED RBC # 0.00 x10^3u/L (0.00-0.012); NUCLEATED RBC % 0.0 % (0.00-0.2); Platelet Count 233 x10^3/uL (182-369); Red Blood Count 5.05 x10^6/uL (3.93-5.22); White Blood Count 8.6 x10^3/uL (3.98-10.04)
[2025-07-13 10:40] LABS: Calcium 9.5 mg/dL (8.4-10.2); Carbon Dioxide 25.0 mmol/L (22-30); Creatinine 1 0.74 mg/dL (0.52-1.04); EST GLOMERULAR FILTRATION RATE 114.4 ML/MIN; Glucose 102.0 mg/dL (74-106); Potassium 3.7 mmol/L (3.5-5.1); SGOT/AST 24.0 U/L (14-36); SGPT/ALT 18.0 U/L (0-35); Total Protein 7.4 g/dL (6.3-8.2)
--- NOTE | 2025-07-13 10:42 | ERPHSYRPT ---
- History of Present Illness Time Seen by Provider: 07/13/25 10:38 Historian: patient Exam Limitations: no limitations Patient Subjective Stated Complaint: Pt. states, "I was over getting my health assessment and all of the sudden I felt like I was going to pass out, I got real sweaty and nauseated. I started having a sharp pain in the center of my chest that now feels more like heart burn." Triage Nursing Assessment: Pt. ambulates to room with steady gait, She is A&Ox4, Skin P/W/D, REsp even unlabored. Face slightly flushed, no edema noted. P.t is able to speak full sentences. Able to move all four extremities. Physician History: Patient is a 24-year-old female history of hypertension, depression presents to our ED for evaluation of chest pain, diaphoresis and near syncope. No heart palpitations. Patient states she is having pain in the center of her chest. No radiation. No active nausea at this time. Patient states she has a headache. No trauma no fever. No rash. Symptoms are mild to moderate in intensity. No specific worsening or improving factors. Patient voices no other complaints or concerns at this time. Portions of this note were created with voice recognition technology. There may be grammatical, spelling, punctuation or sound alike errors Timing/Duration: today Activities at Onset: none Quality: sharpness Location: substernal Chest Pain Radiation: no radiation Severity of Pain-Max: moderate Severity of Pain-Current: mild Modifying Factors: Improves With: nothing Associated Symptoms: denies symptoms Prior Chest Pain/Cardiac Workup: no prior chest pain Nitro Today/Relief: no nitro taken today Aspirin Treatment Today: no aspirin today Allergies/Adverse Reactions: oxaprozin [From Daypro] Allergy (Verified 08/05/24 17:31) Rash escitalopram [From Lexapro] Adverse Reaction (Verified 08/05/24 17:31) Home Medications: Zolpidem Tartrate [Ambien] 6.5 mg PO HS 01/06/20 [History] Metoprolol Tartrate 25 mg [Lopressor 25MG Tab] 25 mg PO DAILY 08/05/24 [History] Alprazolam [Xanax] 0.5 mg PO DAILY PRN 10/19/24 [History] Hx Tetanus, Diphtheria Vaccination/Date Given: No Hx Influenza Vaccination/Date Given: Yes Hx Pneumococcal Vaccination/Date Given: No Travel Risk - International Travel Have you traveled outside of the country in past 3 weeks: No - Emerging Infectious Disease Are you exhibiting symptoms associated with any current EIDs: No Symptoms: Abdominal Pain, Vomitting Comment: R/T APPENDICITIS - Review of Systems All Other Systems: Reviewed and Negative - Past Medical History Pertinent Past Medical History: Yes Neurological History: No Pertinent History ENT History: No Pertinent History Cardiac History: Hypertension Respiratory History: No Pertinent History Endocrine Medical History: No Pertinent History Musculoskeletal History: No Pertinent History GI Medical History: Gallbladder Disease History: No Pertinent History Psycho-Social History: Depression Female Reproductive Disorders: No Pertinent History Other Medical History: Insomnia & Constipation, Mitral Valve Prolapse sees Dr. Castrejon - Past Surgical History Past Surgical History: Yes Neuro Surgical History: No Pertinent History Cardiac: No Pertinent History Respiratory: No Pertinent History Gastrointestinal: Appendectomy, Cholecystectomy, Other Genitourinary: No Pertinent History Musculoskeletal: No Pertinent History Female Surgical History: No Pertinent History Other Surgical History: colonoscopy Significant Family History: no pertinent family hx - Female History Hx Last Menstrual Period: 3 days ago Hx Now: No - Social History Smoking Status: Never smoker Exposure to second hand smoke: No Drug Use: none - Social Determinants of Health Will the patient participate in the screening: Declined to provide - Nursing Vital Signs Nursing Vital Signs: Initial Vital Signs Temperature 98.1 F 07/13/25 09:53 Pulse Rate 91 H 07/13/25 09:53 Respiratory Rate 18 07/13/25 09:53 Blood Pressure 162/96 07/13/25 09:53 O2 Sat by Pulse Oximetry 100 07/13/25 09:53 Pain Scale Pain Intensity 7 - Physical Exam General Appearance: no apparent distress, alert Eye Exam: PERRL/EOMI, eyes nml inspection Ears, Nose, Throat Exam: normal ENT inspection, moist mucous membranes Neck Exam: normal inspection, full range of motion Respiratory Exam: normal breath sounds, lungs clear, No respiratory distress Cardiovascular Exam: regular rate/rhythm, normal heart sounds, normal peripheral pulses Gastrointestinal/Abdomen Exam: soft, No tenderness, No mass Back Exam: normal inspection, No CVA tenderness, No vertebral tenderness Extremity Exam: normal inspection, normal range of motion Neurologic Exam: alert, oriented x 3, cooperative, normal mood/affect, sensation nml, No motor deficits Skin Exam: normal color, warm, dry Lymphatic Exam: No adenopathy SpO2 Interpretation: normal SpO2: 100 O2 Delivery: Room Air - Course Nursing assessment & vital signs reviewed: Yes EKG Interpreted by Me: RATE ([id number]), Sinus Rhythm, NORMAL AXIS, NORMAL INTERVALS, NORMAL QRS Ordered Tests: Active Orders 24 hr Category Date Time Status AMA [Release AMA] OM.NOW Care 07/13/25 11:29 Active Electric Meter Setter STAT Care 07/13/25 10:12 Active EKG-ER Only STAT Care 07/13/25 10:11 Completed IV Insertion STAT Care 07/13/25 10:11 Completed Pulse Oximetry (ED) STAT Care 07/13/25 10:11 Active CHEST WITH CONTRAST [CT] Stat Exams 07/13/25 10:47 Ordered CBC W DIFF Stat Lab 07/13/25 10:15 Completed CMP Stat Lab 07/13/25 10:15 Completed D-DIMER QUANTITATIVE Stat Lab 07/13/25 10:15 Completed HCG QUALITATIVE, URINE Stat Lab 07/13/25 Ordered TROPONIN Q4H Lab 07/13/25 10:15 Completed TROPONIN Q4H Lab 07/13/25 14:15 Ordered TROPONIN Q4H Lab 07/13/25 18:15 Ordered UA W/RFX UR CULTURE Stat Lab 07/13/25 10:12 Ordered Urine Triage Profile Stat Lab 07/13/25 10:12 Ordered Medication Summary Discontinued Medications Generic Name Dose Route Start Last Admin Trade Name Freq PRN Reason Stop Dose Admin Acetaminophen 1,000 mg 07/13/25 10:27 07/13/25 11:01 Acetaminophen 1,000 Mg/100 Ml Ml IV 07/13/25 10:28 1,000 mg ONCE STA Administration Acetaminophen Confirm 07/13/25 11:00 Ofirmev Administered 07/13/25 11:01 Dose 100 mls @ ud IV .STK-MED ONE Prochlorperazine Edisylate 10 mg 07/13/25 10:25 07/13/25 10:45 Prochlorperazine Edisylate 10 Mg/2 Ml Vial IV 07/13/25 10:26 10 mg STAT ONE Administration Prochlorperazine Edisylate Confirm 07/13/25 10:44 Prochlorperazine Edisylate 10 Mg/2 Ml Vial Administered 07/13/25 10:45 Dose 10 mg .ROUTE .STK-[facility] ONE Lab/Rad Data: Laboratory Result Diagrams 07/13/25 10:15 07/13/25 10:15 Laboratory Results 07/13/25 07/13/25 07/13/25 Range/Units 10:15 10:15 10:15 WBC (3.98-10.04) x10^3/uL RBC (3.93-5.22) x10^6/uL Hgb (11.2-15.7) g/dL Hct (34.1-44.9) % MCV (79.4-94.8) fL MCH (25.6-32.2) pg MCHC (32.2-35.5) g/dL RDW (11.7-14.4) % Plt Count (182-369) x10^3/uL MPV (9.4-12.3) fL Gran % (34.0-71.1) % Immature Gran % (Auto) (0.001-0.429) % Nucleat RBC Rel Count (0.00-0.2) % Eos # (Auto) (0.04-0.36) x10^3/uL Immature Gran # (Auto) (0.001-0.031) x10^3u/L Absolute Lymphs (auto) (1.18-3.74) x10^3/uL Absolute Monos (auto) (0.24-0.86) x10^3/uL Absolute Nucleated RBC (0.00-0.012) x10^3u/L Lymphocytes % (19.3-51.7) % Monocytes % (4.7-12.5) % Eosinophils % (0.7-5.8) % Basophils % (0.1-1.2) % Absolute Granulocytes (1.56-6.13) x10^3/uL Basophils # (0.01-0.08) x10^3/uL D-Dimer 0.74 H* (0.0-0.50) mg/L Sodium 136 (135-145) mmol/L Potassium 3.7 (3.5-5.1) mmol/L Chloride 99 (98-107) mmol/L Carbon Dioxide 25 (22-30) mmol/L Anion Gap 15.6 H (5-15) MEQ/L BUN 8 (7-17) mg/dL Creatinine 0.74 (0.52-1.04) mg/dL Estimated GFR 114.4 ML/MIN Glucose 102 (74-106) mg/dL Calcium 9.5 (8.4-10.2) mg/dL Total Bilirubin 0.60 (0.2-1.3) mg/dL AST 24 (14-36) U/L ALT 18 (0-35) U/L Alkaline Phosphatase 86 (38-126) U/L Troponin I < 0.012 (0.000-0.033) ng/mL Serum Total Protein 7.4 (6.3-8.2) g/dL Albumin 4.4 (3.5-5.0) g/dL 07/13/25 Range/Units 10:15 WBC 8.6 (3.98-10.04) x10^3/uL RBC 5.05 (3.93-5.22) x10^6/uL Hgb 13.6 (11.2-15.7) g/dL Hct 43.4 (34.1-44.9) % MCV 85.9 (79.4-94.8) fL MCH 26.9 (25.6-32.2) pg MCHC 31.3 L (32.2-35.5) g/dL RDW 12.5 (11.7-14.4) % Plt Count 233 (182-369) x10^3/uL MPV 10.5 (9.4-12.3) fL Gran % 57.9 (34.0-71.1) % Immature Gran % (Auto) 0.5 H (0.001-0.429) % Nucleat RBC Rel Count 0.0 (0.00-0.2) % Eos # (Auto) 0.58 H (0.04-0.36) x10^3/uL Immature Gran # (Auto) 0.04 H (0.001-0.031) x10^3u/L Absolute Lymphs (auto) 2.41 (1.18-3.74) x10^3/uL Absolute Monos (auto) 0.57 (0.24-0.86) x10^3/uL Absolute Nucleated RBC 0.00 (0.00-0.012) x10^3u/L Lymphocytes % 28.0 (19.3-51.7) % Monocytes % 6.6 (4.7-12.5) % Eosinophils % 6.7 H (0.7-5.8) % Basophils % 0.3 (0.1-1.2) % Absolute Granulocytes 4.99 (1.56-6.13) x10^3/uL Basophils # 0.03 (0.01-0.08) x10^3/uL D-Dimer (0.0-0.50) mg/L Sodium (135-145) mmol/L Potassium (3.5-5.1) mmol/L Chloride (98-107) mmol/L Carbon Dioxide (22-30) mmol/L Anion Gap (5-15) MEQ/L BUN (7-17) mg/dL Creatinine (0.52-1.04) mg/dL Estimated GFR ML/MIN Glucose (74-106) mg/dL Calcium (8.4-10.2) mg/dL Total Bilirubin (0.2-1.3) mg/dL AST (14-36) U/L ALT (0-35) U/L Alkaline Phosphatase (38-126) U/L Troponin I (0.000-0.033) ng/mL Serum Total Protein (6.3-8.2) g/dL Albumin (3.5-5.0) g/dL - Progress Progress: improved Air Movement: good Progress Note: Patient is a 24-year-old female history of hypertension, depression presents to our ED for evaluation of chest pain, diaphoresis and near syncope. No heart palpitations. Patient states she is having pain in the center of her chest. No radiation. No active nausea at this time. Patient states she has a headache. No trauma no fever. No rash. Physical exam nonremarkable. Patient received Ofirmev and Compazine for headache. Headache resolved. Patient's symptoms resolved completely. No chest pain or shortness of breath. Because her symptoms resolved and patient felt well patient decided to decline the CTA of her chest and her second troponin. Patient requested discharge. Patient was discharged AGAINST MEDICAL ADVICE. Patient has the capacity to make informed medical decisions. History obtained from patient and a friend that was at bedside. Differential diagnosis includes acute coronary syndrome, pulmonary embolus, aortic pathology, esophagitis Patient is of sound mind. Patient is appropriate to make informed and independent medical decisions. Patient understands that leaving AGAINST MEDICAL ADVICE can result in delayed diagnosis, increased risk of morbidity, mortality, short and long-term disability including . In spite of these risks, patient has decided to leave AGAINST MEDICAL ADVICE. Patient understands that she may return to our ED at any point if she reconsiders. Patient agrees to follow-up with her primary care doctor within 48 hours for reevaluation. Patient voices no other complaints or concerns at this time. We will release patient AGAINST MEDICAL ADVICE per their request. Complexity of problems addressed is moderate acute complicated. No critical care time. Complexity of data reviewed and analyzed is moderate. Test ordered test reviewed results analyzed and correlated clinically with history and physical exam. Risk of complication and or risk of morbidity/mortality of patient management is low. Vital stable. Time spent to discharge patient is approximately 15 minutes. Plan of care established for shared decision making. No social determinants of health present to impede follow-up. Portions of this note were created with voice recognition technology. There may be grammatical, spelling, punctuation or sound alike errors 07/13/25 11:30 Blood Culture(s) Obtained: No Antibiotics given: No Counseled pt/family regarding: lab results, diagnosis, need for follow-up, rad results - Departure Departure Disposition: AMA Clinical Impression: Chest pain, Headache Condition: Stable Critical Care Time: No Referrals: ARIANNA DIAS, SCRAP CRUSHER [Nurse Practioner, BEHAVIORAL] - Follow up/PCP as directed Additional Instructions: Discharge/Care Plan [employer] was seen on 07/13/25 in the Emergency Room. The patient was counseled regarding Diagnosis,Lab results, Imaging studies, need for follow up and when to return to the Emergency Room. Prescriptions given: Discharge Note I have spoken with the patient and/or caregivers. I have explained the patient's condition, diagnosis and treatment plan based on the information available to me at this time. I have answered the patient's and/or caregiver's questions and addressed any concerns. The patient and/or caregivers have as good understanding of the patient's diagnosis, condition and treatment plan as can be expected at this point. The vital signs have been stable. The patient's condition is stable and appropriate for discharge from the emergency department. The patient will pursue further outpatient evaluation with the primary care physician or other designated or consulting physician as outlined in the discharge instructions. The patient and/or caregivers are agreeable to this plan of care and follow-up instructions have been explained in detail. The patient and/or caregivers have received these instruction. The patient/and or caregivers are aware that any significant change in condition or worsening of symptoms should prompt an immediate return to this or the closest emergency department or call 911.
[2025-07-13] MEDS ORDERED: Compazine 10 MG/2 ML ONE (10:44)
[2025-07-13] MEDS: Compazine 10 MG/2 ML IV ONE (10:45)
[2025-07-13] MEDS ORDERED: OFIRMEV 100 ML IV ONE (11:00)
[2025-07-13] MEDS: OFIRMEV IV STA (11:01)
[2025-07-13 11:02] VITALS: BP 139/78; PULSE 82; RESP 14
[2025-07-13 11:06] VITALS: O2SAT 100
== END 2025-07-13 11:37 | disposition left against medical advice (07) ==
LOC: ED 09:52
DX: R07.9 Chest pain, unspecified (principal); R51.9 Headache, unspecified; R55 Syncope and collapse; I10 Essential (primary) hypertension; Z79.899 Other long term (current) drug therapy